=== PATIENT | female | born 1965 | race African-American/Black ===

== ENCOUNTER 2017-01-30 10:19 | Emergency (ER) | payer MEDICAID, MEDICARE ==
[~2017-01-30] VITALS: Ht 180.3 cm; Wt 75.0 kg
[~2017-01-30 10:19] MED LIST: HTN MEDICATION
[2017-01-30] MEDS ORDERED: HYDROCODONE/ACETAMINOPHEN 5/325MG TABLET PO STA (11:38)
[2017-01-30] MEDS ORDERED: ONDANSETRON 4MG ODT PO STA (11:38)
[2017-01-30 11:57] VITALS: BP 121/77
== END 2017-01-30 12:17 | disposition home or self-care (01) ==
LOC: ER 10:19
DX: C50.912 Malignant neoplasm of unspecified site of left female breast (principal); R11.2 Nausea with vomiting, unspecified; R10.32 Left lower quadrant pain; N93.9 Abnormal uterine and vaginal bleeding, unspecified; F17.200 Nicotine dependence, unspecified, uncomplicated; J45.909 Unspecified asthma, uncomplicated; I10 Essential (primary) hypertension; Z85.3 Personal history of malignant neoplasm of breast
CPT/HCPCS: 99283; Q0162; Z7610; 81003

== ENCOUNTER 2017-01-31 15:24 | Emergency (ER) | payer MEDICAID, MEDICARE ==
[~2017-01-31] VITALS: Ht 180.3 cm; Wt 77.0 kg
[2017-01-31] MEDS ORDERED: IBUPROFEN 600MG TABLET PO STA (15:54)
[2017-01-31 16:17] LABS: CHLORIDE 107 mEq/L (98-107)
[2017-01-31 16:18] LABS: INR 1.1; PROTHROMBIN TIME 11.1 sec (9.4-11.6)
[2017-01-31 16:21] LABS: HEMATOCRIT. 36.9 % (36.0-48.0); HEMOGLOBIN. 12.3 g/dL (12.0-16.0); MEAN CORPUSCULAR HEMOGLOBIN 29.5 pg (28.0-32.0); MEAN CORPUSCULAR VOLUME 88.5 fL (81.0-99.0); MEAN PLATELET VOLUME 9.6 fl (7.4-10.4); PLATELET 175 x1000/uL (130-400); RED BLOOD CELL COUNT 4.17 mill/uL (4.2-5.4); RED CELL DISTRIBUTION WIDTH 14.3 % (11.6-14.6)
[2017-01-31 16:22] LABS: CARBON DIOXIDE 30 mEq/L (21-32)
[2017-01-31 16:59] LABS: PLATELET ESTIMATE NORMAL
[2017-01-31 18:22] VITALS: BP 139/101
== END 2017-01-31 18:27 | disposition home or self-care (01) ==
LOC: ER 16:29
DX: C50.912 Malignant neoplasm of unspecified site of left female breast (principal); N92.0 Excessive and frequent menstruation with regular cycle; J44.9 Chronic obstructive pulmonary disease, unspecified; I10 Essential (primary) hypertension; Z72.0 Tobacco use
CPT/HCPCS: 36415; 71010; 80053; 85025; 85610; 93005; 99285; Z7610

== ENCOUNTER 2018-05-01 13:09 | Inpatient (IN) | payer MEDICAID, MEDICARE ==
[~2018-05-01] VITALS: Ht 180.3 cm; Wt 66.7 kg
[2018-05-01] MEDS ORDERED: ALBUTEROL (0.083%) 2.5MG/3ML NEB HHN STA (16:56)
[2018-05-01] MEDS ORDERED: IPRATROPIUM BROMIDE (0.02%) 0.5MG/2.5ML NEB HHN STA (16:56)
[2018-05-01] MEDS ORDERED: METHYLPREDNISOLONE SOD SUCC 125 MG/2 ML VIAL IV STA (16:56)
[2018-05-01 16:59] LABS: CHLORIDE 107 mEq/L (98-107)
[2018-05-01] MEDS ORDERED: MAGNESIUM 2 G PREMIX 50 ML IV ONE (17:00)
[2018-05-01 17:01] LABS: BASOPHILS % 0.5 % (0.0-2.0); EOSINOPHILS % 0.4 % (0.0-5.0); HEMATOCRIT. 42.6 % (36.0-48.0); HEMOGLOBIN. 14.2 g/dL (12.0-16.0); LYMPHOCYTES % 11.6 % (20.0-50.0); MEAN CORPUSCULAR HEMOGLOBIN 29.8 pg (28.0-32.0); MEAN CORPUSCULAR VOLUME 89.5 fL (81.0-99.0); MEAN PLATELET VOLUME 10.4 fl (7.4-10.4); MONOCYTES % 14.4 % (2.0-8.0); NEUTROPHILS % 73.1 % (40.0-76.0); PLATELET 134 x1000/uL (130-400); RED BLOOD CELL COUNT 4.76 mill/uL (4.2-5.4); RED CELL DISTRIBUTION WIDTH 16.8 % (11.6-14.6)
[2018-05-01] MEDS ORDERED: LEVOFLOXACIN 750MG PREMIX 150 ML IV NR (17:30)
[2018-05-01] MEDS ORDERED: ASPIRIN 81MG TABLET PO NR (17:30)
[2018-05-01 22:01] VITALS: BP 157/71
[2018-05-01] MEDS ORDERED: ACETAMINOPHEN 325MG TABLET PO PRN (22:15)
[2018-05-01] MEDS ORDERED: MAGNESIUM HYDROXIDE 400MG/5ML 30ML UDC PO PRN (22:15)
[2018-05-01] MEDS ORDERED: IPRATROPIUM/ALBUTEROL 0.5-3(2.5)MG/3ML NEB INH PRN (22:15)
[2018-05-01] MEDS ORDERED: ZOLPIDEM TARTRATE 5MG TABLET PO PRN (22:15)
[2018-05-01] MEDS ORDERED: ONDANSETRON HCL 4MG/2ML INJ IV PRN (22:15)
[2018-05-01] MEDS ORDERED: MAGNESIUM/ALUMINUM HYDROXIDE/SIMETHICONE 30ML UDC PO PRN (22:15)
[2018-05-01] MEDS ORDERED: GUAIFENESIN 200MG/10ML SUGAR FREE UDC PO PRN (22:15)
[2018-05-01] MEDS: ENOXAPARIN 40MG/0.4ML SYR SUBCUT SCH (23:05)
[2018-05-02 00:07] VITALS: BP 145/73
[2018-05-02] MEDS: TRAMADOL 50MG TABLET PO PRN ×3 (00:43→21:46)
[2018-05-02] MEDS: IPRATROPIUM/ALBUTEROL 0.5-3(2.5)MG/3ML NEB HHN SCH ×3 (01:27→20:54)
[2018-05-02 04:00] VITALS: BP 138/69
[2018-05-02] MEDS: METHYLPREDNISOLONE SOD SUCC 125 MG/2 ML VIAL IV SCH ×3 (05:43→21:43)
[2018-05-02] MEDS: SODIUM CHLORIDE 0.9% INJ 3ML FLUSH IVF SCH ×3 (05:43→21:44)
[2018-05-02] MEDS: BENZONATATE 100MG CAPSULE PO SCH ×3 (05:43→21:44)
[2018-05-02 08:00] VITALS: BP 165/77
[2018-05-02] MEDS: BUDESONIDE 0.5MG/2ML NEB HHN SCH ×2 (08:10→20:54)
[2018-05-02] MEDS: AMLODIPINE 5MG TABLET PO SCH ×2 (08:25→21:44)
[2018-05-02] MEDS: FAMOTIDINE 20MG TABLET PO SCH (08:26)
[2018-05-02] MEDS: ASPIRIN 81MG EC TABLET PO SCH (08:26)
[2018-05-02 12:00] VITALS: BP 165/84
[2018-05-02 16:00] VITALS: BP 148/77
[2018-05-02] MEDS ORDERED: LEVOFLOXACIN 250MG PREMIX 50 ML IV SCH (18:00)
[2018-05-02 18:46] LABS: *AMPHETAMINES SCREEN URINE NEGATIVE (NEGATIVE); *BARBITURATES SCREEN URINE NEGATIVE (NEGATIVE); *BENZODIAZEPINES SCREEN URINE NEGATIVE (NEGATIVE)
[2018-05-02 18:47] LABS: *COCAINE SCREEN URINE PRESUMTIVE POSITIVE (NEGATIVE); CANNABINOID URINE SCREEN NEGATIVE (NEGATIVE); METHADONE URINE SCREEN NEGATIVE (NEGATIVE); OPIATES URINE SCREEN NEGATIVE (NEGATIVE); PHENCYCLIDINE URINE SCREEN NEGATIVE (NEGATIVE)
[2018-05-02 20:00] VITALS: BP 171/75
[2018-05-02] MEDS: ENOXAPARIN 40MG/0.4ML SYR SUBCUT SCH (21:45)
[2018-05-03] VITALS (7 sets, daily range): BP systolic 145–177; BP diastolic 65–86
[2018-05-03] MEDS: IPRATROPIUM/ALBUTEROL 0.5-3(2.5)MG/3ML NEB HHN SCH ×3 (01:04→15:10)
[2018-05-03] MEDS: HYDROCODONE/ACETAMINOPHEN 5/325MG TABLET PO PRN ×4 (02:38→20:28)
[2018-05-03] MEDS: BENZONATATE 100MG CAPSULE PO SCH ×3 (05:48→20:28)
[2018-05-03] MEDS: METHYLPREDNISOLONE SOD SUCC 125 MG/2 ML VIAL IV SCH ×2 (05:48→14:51)
[2018-05-03] MEDS: SODIUM CHLORIDE 0.9% INJ 3ML FLUSH IVF SCH ×2 (05:48→14:52)
[2018-05-03] MEDS: BUDESONIDE 0.5MG/2ML NEB HHN SCH (08:16)
[2018-05-03] MEDS: FAMOTIDINE 20MG TABLET PO SCH (08:30)
[2018-05-03] MEDS: ASPIRIN 81MG EC TABLET PO SCH (08:30)
[2018-05-03] MEDS: AMLODIPINE 5MG TABLET PO SCH ×2 (08:32→20:28)
[2018-05-03 12:34] LABS: CHLORIDE 106 mEq/L (98-107)
[2018-05-03] MEDS ORDERED: LEVOFLOXACIN 500MG PREMIX 100 ML IV SCH ×2 (18:00)
[2018-05-03] MEDS ORDERED: FAMOTIDINE 20MG TABLET PO SCH (21:00)
== END 2018-05-03 21:31 | disposition home or self-care (01) | DRG 140 ==
LOC: ER 13:09 → EDBEDREQ 17:38 → 5WST 17:59 → EDBEDREQ 18:44 → ENRESERV 18:52
PROVIDERS: ADMIT Internal Medicine; ATTEND Internal Medicine
DX: J44.0 Chronic obstructive pulmonary disease with (acute) lower respiratory infection (principal); F10.10 Alcohol abuse, uncomplicated; F17.210 Nicotine dependence, cigarettes, uncomplicated; I10 Essential (primary) hypertension; F19.10 Other psychoactive substance abuse, uncomplicated; J20.9 Acute bronchitis, unspecified; J44.1 Chronic obstructive pulmonary disease with (acute) exacerbation; Z59.0 Homelessness; I25.2 Old myocardial infarction; Z82.49 Family history of ischemic heart disease and other diseases of the circulatory system; Z85.3 Personal history of malignant neoplasm of breast; Z90.12 Acquired absence of left breast and nipple; Z71.6 Tobacco abuse counseling; I51.7 Cardiomegaly
CPT/HCPCS: 36415; 71045; 78582; 80061; 80305; 83880; 84484; 87804; 93005; 93306; 94640; 96365; 96366; 96368; 96375; 99285; A9558; J1650; J1956; J2930; J3475; J7040; J7611; J7620; J7626

== ENCOUNTER 2019-06-29 09:15 | Emergency (ER) | payer MEDICAID, MEDICARE ==
[~2019-06-29] VITALS: Ht 167.6 cm; Wt 65.0 kg
[2019-06-29] MEDS ORDERED: CLONIDINE 0.2MG TABLET PO ONE (11:15)
[2019-06-29] MEDS ORDERED: MORPHINE SULFATE 4 MG/ML CPJ (NOT FOR IM USE) IV ONE ×3 (12:15→18:30)
[2019-06-29 12:18] LABS: HEMATOCRIT. 46.7 % (36.0-48.0); HEMOGLOBIN. 14.8 g/dL (12.0-16.0); MEAN CORPUSCULAR HEMOGLOBIN 29.8 pg (28.0-32.0); MEAN CORPUSCULAR VOLUME 94.1 fL (81.0-99.0); MEAN PLATELET VOLUME 10.1 fl (7.4-10.4); PLATELET 107 x1000/uL (130-400); RED BLOOD CELL COUNT 4.96 mill/uL (4.2-5.4); RED CELL DISTRIBUTION WIDTH 15.7 % (11.6-14.6)
[2019-06-29 12:22] LABS: CHLORIDE 109 mEq/L (98-107)
[2019-06-29] MEDS ORDERED: FUROSEMIDE 40MG/4ML VIAL IVP ONE (12:30)
[2019-06-29 12:51] LABS: PLATELET ESTIMATE SLIGHTLY DECREASED
[2019-06-29] MEDS ORDERED: ONDANSETRON HCL 4MG/2ML INJ IV ONE (14:45)
[2019-06-29] MEDS ORDERED: ENOXAPARIN 60MG/0.6ML SYR SUBCUT ONE (15:00)
[2019-06-29] MEDS ORDERED: ASPIRIN 325MG EC TABLET PO ONE (15:00)
[2019-06-29 21:30] VITALS: BP 125/75
== END 2019-06-29 21:42 | disposition short-term general hospital (02) ==
LOC: ER 09:15 → CANBEDREQ 19:53 → ER 21:42
DX: I16.0 Hypertensive urgency (principal); I11.0 Hypertensive heart disease with heart failure; I50.9 Heart failure, unspecified; C50.919 Malignant neoplasm of unspecified site of unspecified female breast; J44.9 Chronic obstructive pulmonary disease, unspecified; E78.00 Pure hypercholesterolemia, unspecified; F10.20 Alcohol dependence, uncomplicated; D64.9 Anemia, unspecified; F17.200 Nicotine dependence, unspecified, uncomplicated; R79.89 Other specified abnormal findings of blood chemistry; Z90.10 Acquired absence of unspecified breast and nipple; Z98.890 Other specified postprocedural states; Y90.9 Presence of alcohol in blood, level not specified
CPT/HCPCS: 36415; 71045; 80053; 83880; 84484; 85025; 93005; 96372; 96374; 96375; 96376; 99291; J1650; J1940; J2270; J2405; Z7610

== ENCOUNTER 2019-08-31 10:08 | Inpatient (IN) | payer MEDICAID ==
[~2019-08-31] VITALS: Ht 167.6 cm; Wt 67.1 kg
[~2019-08-31 10:08] MED LIST changes: +ALBU90AE INH; +AMLO5TAB4 PO; +ASPI-1497 MT; +BLOO1KIT74 TP; +FLUT1AER INH; +FURO-151 MT; -HTN MEDICATION; +LOSA50TA3 MT; +P20 PO
[2019-08-31] MEDS ORDERED: KETOROLAC 30MG/ML VIAL IV STA (12:07)
[2019-08-31] MEDS ORDERED: ONDANSETRON HCL 4MG/2ML INJ IV STA (12:07)
[2019-08-31] MEDS ORDERED: SODIUM CHLORIDE 0.9% 1,000 ML IV ONE (12:07)
[2019-08-31] MEDS ORDERED: AMLODIPINE 5MG TABLET PO ONE (12:15)
[2019-08-31] MEDS ORDERED: ALBUTEROL 6.7GM HFA INHALER ORI PRN (12:15)
[2019-08-31] MEDS ORDERED: FAMOTIDINE 20MG/2ML VIAL IV ONE (12:15)
[2019-08-31 13:42] LABS: BASOPHILS % 0.8 % (0.0-2.0); EOSINOPHILS % 2.9 % (0.0-5.0); HEMATOCRIT. 53.6 % (36.0-48.0); HEMOGLOBIN. 17.8 g/dL (12.0-16.0); LYMPHOCYTES % 21.3 % (20.0-50.0); MEAN CORPUSCULAR HEMOGLOBIN 29.3 pg (28.0-32.0); MEAN PLATELET VOLUME 9.5 fl (7.4-10.4); MONOCYTES % 5.7 % (2.0-8.0); NEUTROPHILS % 69.3 % (40.0-76.0); PLATELET 210 x1000/uL (130-400); RED CELL DISTRIBUTION WIDTH 15.4 % (11.6-14.6)
[2019-08-31 13:43] LABS: CLARITY URINE CLEAR (CLEAR); COLOR URINE YELLOW (YELLOW); KETONES URINE NEGATIVE (NEGATIVE); LEUKOCYTE ESTERASE URINE NEGATIVE (NEGATIVE); NITRITE URINE NEGATIVE (NEGATIVE); OCCULT BLOOD URINE NEGATIVE (NEGATIVE); PROTEIN URINE 1+ (NEGATIVE); SPECIFIC GRAVITY URINE 1.011 (1.005-1.030); UROBILINOGEN URINE 0.2 E.U./dL (0.2-1.0)
[2019-08-31 15:45] LABS: BASOPHILS % 0.6 % (0.0-2.0); CHLORIDE 104 mEq/L (98-107); EOSINOPHILS % 1.4 % (0.0-5.0); HEMATOCRIT. 45.8 % (36.0-48.0); HEMOGLOBIN. 14.9 g/dL (12.0-16.0); LYMPHOCYTES % 17.5 % (20.0-50.0); MEAN CORPUSCULAR HEMOGLOBIN 28.9 pg (28.0-32.0); MEAN CORPUSCULAR VOLUME 88.9 fL (81.0-99.0); MEAN PLATELET VOLUME 9.3 fl (7.4-10.4); MONOCYTES % 6.6 % (2.0-8.0); NEUTROPHILS % 73.9 % (40.0-76.0); PLATELET 181 x1000/uL (130-400); RED BLOOD CELL COUNT 5.16 mill/uL (4.2-5.4); RED CELL DISTRIBUTION WIDTH 15.4 % (11.6-14.6)
[2019-08-31] MEDS ORDERED: ASPIRIN 81MG TABLET PO ONE (16:45)
[2019-08-31] MEDS ORDERED: LEVOFLOXACIN 750MG PREMIX 150 ML IV ONE (17:45)
[2019-08-31] MEDS ORDERED: SODIUM CHLORIDE 0.9% 1000ML BAG (SEPSIS BOLUS) IV ONE (17:45)
[2019-08-31 20:00] VITALS: BP 148/99
[2019-08-31 22:00] VITALS: BP 148/99
[2019-08-31] MEDS ORDERED: CLONIDINE 0.1MG TABLET PO PRN (23:30)
[2019-08-31] MEDS ORDERED: ONDANSETRON HCL 4MG/2ML INJ IV PRN (23:30)
[2019-08-31] MEDS ORDERED: ACETAMINOPHEN 325MG TABLET PO PRN (23:30)
[2019-08-31] MEDS ORDERED: AZITHROMYCIN 500 MG in DEXT 5% WATER 250 ML IV SCH (23:30)
[2019-09-01] VITALS: BP 137/76
[2019-09-01] MEDS ORDERED: AZITHROMYCIN 500 MG TABLET PO NR (01:00)
[2019-09-01 04:00] VITALS: BP 155/84
[2019-09-01] MEDS: HYDROCODONE/ACETAMINOPHEN 5/325MG TABLET PO PRN ×3 (04:31→14:29)
[2019-09-01 07:43] LABS: *BENZODIAZEPINES SCREEN URINE NEGATIVE (NEGATIVE); *COCAINE SCREEN URINE PRESUMTIVE POSITIVE (NEGATIVE)
[2019-09-01 07:44] LABS: METHADONE URINE SCREEN NEGATIVE (NEGATIVE); OPIATES URINE SCREEN NEGATIVE (NEGATIVE); PHENCYCLIDINE URINE SCREEN NEGATIVE (NEGATIVE)
[2019-09-01 07:45] LABS: *AMPHETAMINES SCREEN URINE NEGATIVE (NEGATIVE); *BARBITURATES SCREEN URINE NEGATIVE (NEGATIVE); CANNABINOID URINE SCREEN NEGATIVE (NEGATIVE)
[2019-09-01 08:00] VITALS: BP 135/88
[2019-09-01] MEDS ORDERED: VANCOMYCIN 1250MG in DEXTROSE 5% WATER 250ML IV SCH (08:00)
[2019-09-01] MEDS: FUROSEMIDE 40MG/4ML VIAL IV SCH (08:19)
[2019-09-01] MEDS: LOSARTAN POTASSIUM 50 MG TABLET PO SCH (08:20)
[2019-09-01] MEDS: AMLODIPINE 5MG TABLET PO SCH ×2 (08:20→16:38)
[2019-09-01] MEDS: ASPIRIN 81MG EC TABLET PO SCH (08:20)
[2019-09-01] MEDS: ENOXAPARIN 40MG/0.4ML SYR SUBCUT SCH (08:21)
[2019-09-01 09:00] LABS: BG BASE EXCESS 1.6 mmol/L (-2.0-2.0); BG CARBOXYHEMOGLOBIN 0.9 % (0.5-1.5); BG FRACTION INSPIRED OXYGEN 21; BG HCO3 ACT 26.4 mmol/L (22.0-26.0); BG METHEMOGLOBIN 0.3 % (0.0-1.5); BG OXYGEN SATURATION 93.9 % (92.0-98.5); BG OXYHEMOGLOBIN 92.8 % (94.0-97.0); BG PCO2 42.2 mmHg (35.0-45.0); BG PH 7.414 (7.350-7.450); BG PO2 67.4 mmHg (75.0-100.0); BG SAMPLE SITE RIGHT RADIAL; BG TOTAL HEMOGLOBIN 13.6 g/dL (12.0-18.0); BG VENT MODE ROOM AIR
[2019-09-01] MEDS ORDERED: ASPIRIN 81MG EC TABLET PO SCH (09:00)
[2019-09-01 09:32] LABS: CHLORIDE 107 mEq/L (98-107)
[2019-09-01 09:40] LABS: HDL CHOLESTEROL 54 mg/dL (40-59); LDL CHOLESTEROL 47 mg/dL (5-100)
[2019-09-01 09:42] LABS: BASOPHILS % 0.5 % (0.0-2.0); EOSINOPHILS % 4.3 % (0.0-5.0); HEMATOCRIT. 43.5 % (36.0-48.0); HEMOGLOBIN. 14.2 g/dL (12.0-16.0); LYMPHOCYTES % 27.2 % (20.0-50.0); MEAN CORPUSCULAR HEMOGLOBIN 28.9 pg (28.0-32.0); MEAN CORPUSCULAR VOLUME 88.5 fL (81.0-99.0); MONOCYTES % 8.1 % (2.0-8.0); NEUTROPHILS % 59.9 % (40.0-76.0); PLATELET 160 x1000/uL (130-400); RED BLOOD CELL COUNT 4.91 mill/uL (4.2-5.4); RED CELL DISTRIBUTION WIDTH 15.2 % (11.6-14.6)
[2019-09-01 12:00] VITALS: BP 132/84
[2019-09-01] MEDS ORDERED: HYDRALAZINE 20MG/ML VIAL IV PRN (15:45)
[2019-09-01 16:00] VITALS: BP 137/94
[2019-09-01] MEDS: LORAZEPAM 2MG/ML CPJ IV PRN (16:38)
[2019-09-01 20:00] VITALS: BP 109/63
[2019-09-01] MEDS ORDERED: VANCOMYCIN 750 MG in DEXT 5% WATER 250 ML IV SCH (20:00)
[2019-09-01] MEDS ORDERED: VANCOMYCIN 750 MG PREMIX 150 ML IV SCH (20:00)
[2019-09-02] VITALS (7 sets, daily range): BP systolic 116–132; BP diastolic 67–86
[2019-09-02] MEDS: VANCOMYCIN 1,000 MG in DEXT 5% WATER 250 ML IV SCH ×2 (00:36→18:02)
[2019-09-02] MEDS: LORAZEPAM 2MG/ML CPJ IV PRN ×3 (01:05→16:34)
[2019-09-02] MEDS: MORPHINE SULFATE 2 MG/ML CPJ (NOT FOR IM USE) IV PRN ×4 (01:06→23:34)
[2019-09-02] MEDS: HYDROCODONE/ACETAMINOPHEN 5/325MG TABLET PO PRN (04:32)
[2019-09-02 06:22] LABS: CHLORIDE 105 mEq/L (98-107)
[2019-09-02 06:28] LABS: BASOPHILS % 0.6 % (0.0-2.0); EOSINOPHILS % 5.5 % (0.0-5.0); HEMATOCRIT. 43.7 % (36.0-48.0); HEMOGLOBIN. 14.3 g/dL (12.0-16.0); LYMPHOCYTES % 38.2 % (20.0-50.0); MEAN CORPUSCULAR HEMOGLOBIN 28.8 pg (28.0-32.0); MEAN CORPUSCULAR VOLUME 88.3 fL (81.0-99.0); MONOCYTES % 12.1 % (2.0-8.0); NEUTROPHILS % 43.6 % (40.0-76.0); PLATELET 183 x1000/uL (130-400); RED BLOOD CELL COUNT 4.95 mill/uL (4.2-5.4); RED CELL DISTRIBUTION WIDTH 15.2 % (11.6-14.6)
[2019-09-02] MEDS: FUROSEMIDE 40MG/4ML VIAL IV SCH (08:53)
[2019-09-02] MEDS: ENOXAPARIN 40MG/0.4ML SYR SUBCUT SCH (08:54)
[2019-09-02] MEDS: LOSARTAN POTASSIUM 50 MG TABLET PO SCH (08:54)
[2019-09-02] MEDS: AMLODIPINE 5MG TABLET PO SCH ×2 (08:54→18:01)
[2019-09-02] MEDS: AZITHROMYCIN 250 MG TABLET PO SCH (08:54)
[2019-09-02] MEDS: CLOPIDOGREL 75MG TABLET PO SCH (08:54)
[2019-09-02] MEDS: ASPIRIN 81MG EC TABLET PO SCH (08:54)
[2019-09-03] MEDS: LORAZEPAM 2MG/ML CPJ IV PRN ×3 (00:31→19:54)
[2019-09-03 04:00] VITALS: BP 101/70
[2019-09-03] MEDS: CLOPIDOGREL 75MG TABLET PO SCH (07:55)
[2019-09-03] MEDS: AMLODIPINE 5MG TABLET PO SCH ×2 (07:55→17:00)
[2019-09-03] MEDS: ASPIRIN 81MG EC TABLET PO SCH (07:55)
[2019-09-03] MEDS: LOSARTAN POTASSIUM 50 MG TABLET PO SCH (07:55)
[2019-09-03] MEDS: ENOXAPARIN 40MG/0.4ML SYR SUBCUT SCH (07:56)
[2019-09-03 08:00] VITALS: BP 123/65
[2019-09-03] MEDS: AZITHROMYCIN 250 MG TABLET PO SCH (08:06)
[2019-09-03] MEDS: MORPHINE SULFATE 2 MG/ML CPJ (NOT FOR IM USE) IV PRN ×2 (08:07→19:54)
[2019-09-03] MEDS: FUROSEMIDE 40MG/4ML VIAL IV SCH (09:00)
[2019-09-03 12:00] VITALS: BP 122/74
[2019-09-03] MEDS: HYDROCODONE/ACETAMINOPHEN 5/325MG TABLET PO PRN (12:07)
[2019-09-03] MEDS: VANCOMYCIN 1 G PREMIX 200 ML IV SCH ×2 (12:08→19:56)
[2019-09-03 16:00] VITALS: BP 111/65
[2019-09-03 20:00] VITALS: BP 128/84
[2019-09-03 22:00] VITALS: BP 128/84
[2019-09-04] VITALS: BP 123/59
[2019-09-04] MEDS: MORPHINE SULFATE 2 MG/ML CPJ (NOT FOR IM USE) IV PRN (00:04)
[2019-09-04] MEDS: HYDROCODONE/ACETAMINOPHEN 5/325MG TABLET PO PRN ×3 (02:17→16:30)
[2019-09-04 04:00] VITALS: BP 114/73
[2019-09-04 07:45] VITALS: BP 117/80
[2019-09-04] MEDS: FUROSEMIDE 40MG/4ML VIAL IV SCH (08:56)
[2019-09-04] MEDS: AZITHROMYCIN 250 MG TABLET PO SCH (08:56)
[2019-09-04] MEDS: LOSARTAN POTASSIUM 50 MG TABLET PO SCH (08:56)
[2019-09-04] MEDS: AMLODIPINE 5MG TABLET PO SCH ×2 (08:57→17:00)
[2019-09-04] MEDS: ASPIRIN 81MG EC TABLET PO SCH (08:57)
[2019-09-04] MEDS: CLOPIDOGREL 75MG TABLET PO SCH (08:57)
[2019-09-04] MEDS: ENOXAPARIN 40MG/0.4ML SYR SUBCUT SCH (08:58)
[2019-09-04] MEDS: VANCOMYCIN 1 G PREMIX 200 ML IV SCH (08:58)
[2019-09-04] MEDS: LORAZEPAM 2MG/ML CPJ IV PRN (10:30)
[2019-09-04 11:46] VITALS: BP 103/69
[2019-09-04 15:41] VITALS: BP 97/68
[2019-09-04 20:30] VITALS: BP 114/64
[2019-09-05 00:20] VITALS: BP 112/61
[2019-09-05] MEDS: MORPHINE SULFATE 2 MG/ML CPJ (NOT FOR IM USE) IV PRN ×3 (01:27→20:30)
[2019-09-05] MEDS: VANCOMYCIN 1 G PREMIX 200 ML IV SCH ×3 (01:29→23:17)
[2019-09-05 04:00] VITALS: BP 112/61
[2019-09-05] MEDS: HYDROCODONE/ACETAMINOPHEN 5/325MG TABLET PO PRN ×4 (05:18→23:32)
[2019-09-05 08:00] VITALS: BP 111/70
[2019-09-05] MEDS: FUROSEMIDE 40MG/4ML VIAL IV SCH (08:12)
[2019-09-05] MEDS: ASPIRIN 81MG EC TABLET PO SCH (08:12)
[2019-09-05] MEDS: LOSARTAN POTASSIUM 50 MG TABLET PO SCH (08:13)
[2019-09-05] MEDS: ENOXAPARIN 40MG/0.4ML SYR SUBCUT SCH ×2 (08:13→08:34)
[2019-09-05] MEDS: CLOPIDOGREL 75MG TABLET PO SCH (08:13)
[2019-09-05] MEDS: AZITHROMYCIN 250 MG TABLET PO SCH (08:13)
[2019-09-05] MEDS: AMLODIPINE 5MG TABLET PO SCH ×2 (08:14→16:33)
[2019-09-05 12:00] VITALS: BP 111/67
[2019-09-05 16:30] VITALS: BP 138/86
[2019-09-05] MEDS: LORAZEPAM 2MG/ML CPJ IV PRN (17:48)
[2019-09-05 20:00] VITALS: BP 122/89
[2019-09-06] VITALS: BP 113/72
[2019-09-06] MEDS: LORAZEPAM 2MG/ML CPJ IV PRN ×2 (03:09→12:27)
[2019-09-06 04:00] VITALS: BP 122/71
[2019-09-06] MEDS: HYDROCODONE/ACETAMINOPHEN 5/325MG TABLET PO PRN ×3 (05:49→21:33)
[2019-09-06 08:00] VITALS: BP 102/70
[2019-09-06] MEDS: LOSARTAN POTASSIUM 50 MG TABLET PO SCH (08:52)
[2019-09-06] MEDS: ASPIRIN 81MG EC TABLET PO SCH (08:52)
[2019-09-06] MEDS: CLOPIDOGREL 75MG TABLET PO SCH (08:52)
[2019-09-06] MEDS: AMLODIPINE 5MG TABLET PO SCH ×2 (08:53→17:08)
[2019-09-06] MEDS: ENOXAPARIN 40MG/0.4ML SYR SUBCUT SCH ×2 (08:54→09:00)
[2019-09-06] MEDS: FUROSEMIDE 40MG/4ML VIAL IV SCH (09:04)
[2019-09-06] MEDS: VANCOMYCIN 1 G PREMIX 200 ML IV SCH (10:07)
[2019-09-06] MEDS: MORPHINE SULFATE 2 MG/ML CPJ (NOT FOR IM USE) IV PRN (10:08)
[2019-09-06 12:00] VITALS: BP 106/68
[2019-09-06] MEDS ORDERED: LURA20TA PO (12:18)
[2019-09-06] MEDS ORDERED: QUET100T PO (12:18)
[2019-09-06 16:00] VITALS: BP 104/64
[2019-09-06 20:00] VITALS: BP 134/82
[2019-09-06] MEDS ORDERED: LORAZEPAM 1MG TABLET PO PRN (20:30)
[2019-09-06] MEDS: QUETIAPINE FUMARATE 50MG TABLET PO SCH (20:57)
[2019-09-07 04:00] VITALS: BP 114/50
[2019-09-07 04:07] LABS: COCAINE CONFIRMATION URINE Positive (.)
[2019-09-07 08:00] VITALS: BP 120/78
[2019-09-07] MEDS: FUROSEMIDE 40MG/4ML VIAL IV SCH (09:11)
[2019-09-07] MEDS: LOSARTAN POTASSIUM 50 MG TABLET PO SCH (09:21)
[2019-09-07] MEDS: ASPIRIN 81MG EC TABLET PO SCH (09:21)
[2019-09-07] MEDS: AMLODIPINE 5MG TABLET PO SCH (09:22)
[2019-09-07] MEDS: QUETIAPINE FUMARATE 50MG TABLET PO SCH (09:22)
[2019-09-07] MEDS: CLOPIDOGREL 75MG TABLET PO SCH (09:22)
[2019-09-07] MEDS: HYDROCODONE/ACETAMINOPHEN 5/325MG TABLET PO PRN ×3 (09:23→18:19)
[2019-09-07 12:00] VITALS: BP 95/64
[2019-09-07 16:00] VITALS: BP 107/63
[2019-09-07] MEDS ORDERED: MORPHINE SULFATE 2 MG/ML CPJ (NOT FOR IM USE) IV PRN (18:15)
[2019-09-07 19:38] VITALS: BP 133/87
[2019-09-07 20:00] VITALS: BP 133/87
== END 2019-09-07 20:50 | disposition hospice, inpatient (51) | DRG 816 ==
LOC: ER 10:08 → 7EST 15:09 → ENRESERV 16:26 → 6WST 09-01 23:14 → 6EST 09-05 15:30
PROVIDERS: ADMIT Internal Medicine; ATTEND Internal Medicine
DX: T40.5X1A Poisoning by cocaine, accidental (unintentional), initial encounter (principal); I21.4 Non-ST elevation (NSTEMI) myocardial infarction; I50.43 Acute on chronic combined systolic (congestive) and diastolic (congestive) heart failure; N17.9 Acute kidney failure, unspecified; E87.2 Acidosis; E86.0 Dehydration; I08.1 Rheumatic disorders of both mitral and tricuspid valves; J44.1 Chronic obstructive pulmonary disease with (acute) exacerbation; I27.20 Pulmonary hypertension, unspecified; I31.3 Pericardial effusion (noninflammatory); I25.10 Atherosclerotic heart disease of native coronary artery without angina pectoris; I11.0 Hypertensive heart disease with heart failure; D72.819 Decreased white blood cell count, unspecified; Z20.828 Contact with and (suspected) exposure to other viral communicable diseases; J68.0 Bronchitis and pneumonitis due to chemicals, gases, fumes and vapors; R78.81 Bacteremia; B96.89 Other specified bacterial agents as the cause of diseases classified elsewhere; I42.9 Cardiomyopathy, unspecified; E78.5 Hyperlipidemia, unspecified; F17.210 Nicotine dependence, cigarettes, uncomplicated; Z59.0 Homelessness; Z98.61 Coronary angioplasty status; Z91.19 Patient's noncompliance with other medical treatment and regimen; Z90.12 Acquired absence of left breast and nipple; Z85.3 Personal history of malignant neoplasm of breast; Y92.89 Other specified places as the place of occurrence of the external cause; Z91.018 Allergy to other foods; Z92.21 Personal history of antineoplastic chemotherapy
CPT/HCPCS: 36415; 36600; 71045; 74018; 76700; 80048; 80053; 80061; 80202; 80305; 80353; 81003; 82375; 82805; 83036; 83605; 83880; 84481; 84484; 85025; 87420; 87635; 87804; 93005; 93306; 96374; 99285; J1650; J1885; J1940; J2060; J2270; J2405; J3370; J3490; J7030; J7060

== ENCOUNTER 2019-11-26 07:10 | Inpatient (IN) | payer MEDICAID, MEDICARE ==
[~2019-11-26] VITALS: Ht 180.3 cm; Wt 65.3 kg
[~2019-11-26 07:10] MED LIST changes: +LURA20TA PO; +QUET100T PO
[2019-11-26 08:06] LABS: EOSINOPHILS % 1.5 % (0.0-5.0); HEMATOCRIT. 44.5 % (36.0-48.0); LYMPHOCYTES % 20.5 % (20.0-50.0); MEAN CORPUSCULAR HEMOGLOBIN 31.1 pg (28.0-32.0); MEAN CORPUSCULAR VOLUME 92.2 fL (81.0-99.0); MEAN PLATELET VOLUME 9.5 fl (7.4-10.4); MONOCYTES % 12.3 % (2.0-8.0); NEUTROPHILS % 64.7 % (40.0-76.0); PLATELET 165 x1000/uL (130-400); RED BLOOD CELL COUNT 4.82 mill/uL (4.2-5.4); RED CELL DISTRIBUTION WIDTH 15.7 % (11.6-14.6)
[2019-11-26 08:13] LABS: CHLORIDE 109 mEq/L (98-107)
[2019-11-26] MEDS ORDERED: AZITHROMYCIN 500 MG TABLET PO ONE (08:30)
[2019-11-26] MEDS ORDERED: PREDNISOLONE 15 MG/5 ML ORAL SYRINGE PO ONE (08:30)
[2019-11-26] MEDS ORDERED: IPRATROPIUM/ALBUTEROL 0.5-3(2.5)MG/3ML NEB HHN ONE (08:30)
[2019-11-26] MEDS ORDERED: OXYC-105 MT (13:44)
[2019-11-26] MEDS ORDERED: MAGNESIUM/ALUMINUM HYDROXIDE/SIMETHICONE 30ML UDC PO PRN (13:45)
[2019-11-26] MEDS ORDERED: ALBUTEROL 6.7GM HFA INHALER ORI PRN (13:45)
[2019-11-26] MEDS ORDERED: ONDANSETRON HCL 4MG/2ML INJ IV PRN (13:45)
[2019-11-26] MEDS ORDERED: GUAIFENESIN 200MG/10ML SUGAR FREE UDC PO PRN (13:45)
[2019-11-26] MEDS ORDERED: CLONIDINE 0.1MG TABLET PO PRN (13:45)
[2019-11-26] MEDS ORDERED: ACETAMINOPHEN 325MG TABLET PO PRN ×2 (13:45)
[2019-11-26 13:48] VITALS: BP 131/78
[2019-11-26] MEDS: SODIUM CHLORIDE 0.9% INJ 3ML FLUSH IVF SCH ×2 (14:00→18:17)
[2019-11-26] MEDS: ENOXAPARIN 40MG/0.4ML SYR SUBCUT SCH ×2 (14:00→18:16)
[2019-11-26] MEDS: CEFTRIAXONE 1 G PREMIX 50 ML IV SCH ×2 (15:00→18:16)
[2019-11-26 16:29] LABS: *AMPHETAMINES SCREEN URINE NEGATIVE (NEGATIVE)
[2019-11-26 16:30] LABS: *BARBITURATES SCREEN URINE NEGATIVE (NEGATIVE); *BENZODIAZEPINES SCREEN URINE NEGATIVE (NEGATIVE); *COCAINE SCREEN URINE PRESUMTIVE POSITIVE (NEGATIVE); METHADONE URINE SCREEN NEGATIVE (NEGATIVE); OPIATES URINE SCREEN NEGATIVE (NEGATIVE); PHENCYCLIDINE URINE SCREEN NEGATIVE (NEGATIVE)
[2019-11-26 16:31] LABS: CANNABINOID URINE SCREEN NEGATIVE (NEGATIVE)
[2019-11-26] MEDS: HYDROCODONE/ACETAMINOPHEN 10/325MG TABLET PO PRN (18:06)
[2019-11-26 20:00] VITALS: BP 140/60
[2019-11-26] MEDS: GUAIFENESIN 600MG ER TABLET PO SCH (21:22)
[2019-11-27] VITALS (9 sets, daily range): BP systolic 122–203; BP diastolic 59–105
[2019-11-27] MEDS: HYDROCODONE/ACETAMINOPHEN 10/325MG TABLET PO PRN ×2 (00:22→08:59)
[2019-11-27] MEDS: ZOLPIDEM TARTRATE 5MG TABLET PO PRN ×2 (00:23→22:36)
[2019-11-27] MEDS: SODIUM CHLORIDE 0.9% INJ 3ML FLUSH IVF SCH ×3 (07:04→22:36)
[2019-11-27] MEDS ORDERED: IPRATROPIUM/ALBUTEROL 0.5-3(2.5)MG/3ML NEB ONE (08:48)
[2019-11-27] MEDS: GUAIFENESIN 600MG ER TABLET PO SCH ×2 (08:57→22:36)
[2019-11-27] MEDS: AZITHROMYCIN 500 MG TABLET PO SCH (08:57)
[2019-11-27 08:59] LABS: BG BASE EXCESS -9.4 mmol/L (-2.0-2.0); BG DEOXYHEMOGLOBIN 21.7 % (0.0-5.0); BG FRACTION INSPIRED OXYGEN 100; BG HCO3 ACT 20.7 mmol/L (22.0-26.0); BG METHEMOGLOBIN 0.2 % (0.0-1.5); BG OXYHEMOGLOBIN 77.1 % (94.0-97.0); BG PCO2 61.2 mmHg (35.0-45.0); BG PH 7.147 (7.350-7.450); BG PO2 52.6 mmHg (75.0-100.0); BG SAMPLE SITE RIGHT RADIAL; BG TOTAL HEMOGLOBIN 18.1 g/dL (12.0-18.0); BG VENT MODE MASK - NRB
[2019-11-27] MEDS ORDERED: QUETIAPINE FUMARATE 50MG TABLET PO SCH (09:45)
[2019-11-27] MEDS: METHYLPREDNISOLONE SOD SUCC 125 MG/2 ML VIAL IV SCH ×3 (10:10→22:36)
[2019-11-27] MEDS: LOSARTAN POTASSIUM 50 MG TABLET PO SCH (10:11)
[2019-11-27] MEDS: CEFTRIAXONE 1 G PREMIX 50 ML IV SCH (14:11)
[2019-11-27] MEDS: IPRATROPIUM/ALBUTEROL 0.5-3(2.5)MG/3ML NEB HHN SCH (16:09)
[2019-11-27] MEDS: ASPIRIN 325MG EC TABLET PO SCH (17:43)
[2019-11-27] MEDS: FUROSEMIDE 40MG/4ML VIAL IVP SCH ×2 (17:43→22:36)
[2019-11-27] MEDS: QUETIAPINE FUMARATE 50MG TABLET PO SCH (22:36)
[2019-11-27] MEDS: ATORVASTATIN CALCIUM 40MG TABLET PO SCH (22:36)
[2019-11-28] VITALS (12 sets, daily range): BP systolic 119–162; BP diastolic 62–96
[2019-11-28] MEDS: IPRATROPIUM/ALBUTEROL 0.5-3(2.5)MG/3ML NEB HHN SCH ×6 (00:49→21:55)
[2019-11-28] MEDS: METHYLPREDNISOLONE SOD SUCC 125 MG/2 ML VIAL IV SCH ×4 (05:03→21:00)
[2019-11-28] MEDS: SODIUM CHLORIDE 0.9% INJ 3ML FLUSH IVF SCH ×3 (05:04→21:24)
[2019-11-28] MEDS: FUROSEMIDE 40MG/4ML VIAL IVP SCH ×2 (09:30→20:56)
[2019-11-28] MEDS: ASPIRIN 325MG EC TABLET PO SCH (09:30)
[2019-11-28] MEDS: GUAIFENESIN 600MG ER TABLET PO SCH ×2 (09:30→20:56)
[2019-11-28] MEDS: QUETIAPINE FUMARATE 50MG TABLET PO SCH ×2 (09:30→20:56)
[2019-11-28] MEDS: AZITHROMYCIN 500 MG TABLET PO SCH (09:30)
[2019-11-28] MEDS: LOSARTAN POTASSIUM 50 MG TABLET PO SCH (09:30)
[2019-11-28] MEDS: ENOXAPARIN 40MG/0.4ML SYR SUBCUT SCH (09:31)
[2019-11-28] MEDS: HYDROCODONE/ACETAMINOPHEN 10/325MG TABLET PO PRN ×2 (09:41→21:26)
[2019-11-28] MEDS: CEFTRIAXONE 1 G PREMIX 50 ML IV SCH (13:40)
[2019-11-28] MEDS: DIPHENHYDRAMINE 50MG/ML VIAL IV PRN (20:56)
[2019-11-28] MEDS: ATORVASTATIN CALCIUM 40MG TABLET PO SCH (20:56)
[2019-11-29] VITALS (10 sets, daily range): BP systolic 122–152; BP diastolic 64–90
[2019-11-29] MEDS: IPRATROPIUM/ALBUTEROL 0.5-3(2.5)MG/3ML NEB HHN SCH ×6 (00:52→20:10)
[2019-11-29] MEDS: METHYLPREDNISOLONE SOD SUCC 125 MG/2 ML VIAL IV SCH ×3 (04:12→17:24)
[2019-11-29] MEDS: SODIUM CHLORIDE 0.9% INJ 3ML FLUSH IVF SCH ×3 (06:33→21:52)
[2019-11-29 06:39] LABS: HEMATOCRIT. 44.3 % (36.0-48.0); HEMOGLOBIN. 14.8 g/dL (12.0-16.0); MEAN CORPUSCULAR HEMOGLOBIN 30.6 pg (28.0-32.0); MEAN CORPUSCULAR VOLUME 91.5 fL (81.0-99.0); PLATELET 163 x1000/uL (130-400); RED BLOOD CELL COUNT 4.84 mill/uL (4.2-5.4); RED CELL DISTRIBUTION WIDTH 16.1 % (11.6-14.6)
[2019-11-29 07:07] LABS: CHLORIDE 99 mEq/L (98-107)
[2019-11-29] MEDS: HYDROCODONE/ACETAMINOPHEN 10/325MG TABLET PO PRN ×3 (08:52→17:23)
[2019-11-29] MEDS: AZITHROMYCIN 500 MG TABLET PO SCH (08:53)
[2019-11-29] MEDS: FUROSEMIDE 40MG/4ML VIAL IVP SCH ×2 (08:53→20:56)
[2019-11-29] MEDS: QUETIAPINE FUMARATE 50MG TABLET PO SCH ×2 (08:53→20:56)
[2019-11-29] MEDS: ASPIRIN 325MG EC TABLET PO SCH (08:53)
[2019-11-29] MEDS: LOSARTAN POTASSIUM 50 MG TABLET PO SCH (08:53)
[2019-11-29] MEDS: ENOXAPARIN 40MG/0.4ML SYR SUBCUT SCH (08:57)
[2019-11-29] MEDS: GUAIFENESIN 600MG ER TABLET PO SCH ×2 (09:32→20:56)
[2019-11-29] MEDS: CEFTRIAXONE 1 G PREMIX 50 ML IV SCH (13:36)
[2019-11-29] MEDS: DIPHENHYDRAMINE 50MG/ML VIAL IV PRN (20:56)
[2019-11-29] MEDS: ATORVASTATIN CALCIUM 40MG TABLET PO SCH (20:56)
[2019-11-30] VITALS (9 sets, daily range): BP systolic 112–143; BP diastolic 51–95
[2019-11-30] MEDS: IPRATROPIUM/ALBUTEROL 0.5-3(2.5)MG/3ML NEB HHN SCH ×5 (00:31→16:00)
[2019-11-30] MEDS: SODIUM CHLORIDE 0.9% INJ 3ML FLUSH IVF SCH ×2 (06:31→11:20)
[2019-11-30 06:51] LABS: CHLORIDE 99 mEq/L (98-107)
[2019-11-30 06:53] LABS: HEMATOCRIT. 41.3 % (36.0-48.0); HEMOGLOBIN. 13.8 g/dL (12.0-16.0); MEAN CORPUSCULAR HEMOGLOBIN 30.7 pg (28.0-32.0); MEAN CORPUSCULAR VOLUME 91.6 fL (81.0-99.0); MEAN PLATELET VOLUME 9.9 fl (7.4-10.4); PLATELET 144 x1000/uL (130-400); RED CELL DISTRIBUTION WIDTH 15.8 % (11.6-14.6)
[2019-11-30] MEDS ORDERED: METHYLPREDNISOLONE SOD SUCC 40 MG/ML VIAL IV SCH (09:00)
[2019-11-30] MEDS: ASPIRIN 325MG EC TABLET PO SCH (09:29)
[2019-11-30] MEDS: LOSARTAN POTASSIUM 50 MG TABLET PO SCH (09:30)
[2019-11-30] MEDS: GUAIFENESIN 600MG ER TABLET PO SCH (09:30)
[2019-11-30] MEDS: FUROSEMIDE 40MG/4ML VIAL IVP SCH (09:30)
[2019-11-30] MEDS: QUETIAPINE FUMARATE 50MG TABLET PO SCH (09:30)
[2019-11-30] MEDS: AZITHROMYCIN 500 MG TABLET PO SCH (09:30)
[2019-11-30] MEDS: ENOXAPARIN 40MG/0.4ML SYR SUBCUT SCH (10:04)
[2019-11-30] MEDS: HYDROCODONE/ACETAMINOPHEN 10/325MG TABLET PO PRN (10:48)
[2019-11-30 13:34] LABS: PLATELET ESTIMATE NORMAL
[2019-11-30 16:50] LABS: PLATELET ESTIMATE NORMAL
== END 2019-11-30 16:15 | disposition home or self-care (01) | DRG 190 ==
LOC: ER 07:10 → 7WST 11:21 → ENRESERV 11:51 → 6WST 11-27 04:08 → 5EST 11-27 11:00
PROVIDERS: ADMIT Internal Medicine; ATTEND Internal Medicine
PROC: 5A09357 Assistance with Respiratory Ventilation, Less than 24 Consecutive Hours, Continuous Positive Airway Pressure (ICD-10-PCS; principal; 2019-11-27)
DX: I21.4 Non-ST elevation (NSTEMI) myocardial infarction (principal); J96.21 Acute and chronic respiratory failure with hypoxia; I50.23 Acute on chronic systolic (congestive) heart failure; J18.9 Pneumonia, unspecified organism; E87.2 Acidosis; I11.0 Hypertensive heart disease with heart failure; C79.9 Secondary malignant neoplasm of unspecified site; I31.3 Pericardial effusion (noninflammatory); C50.919 Malignant neoplasm of unspecified site of unspecified female breast; I25.10 Atherosclerotic heart disease of native coronary artery without angina pectoris; J44.0 Chronic obstructive pulmonary disease with (acute) lower respiratory infection; J44.1 Chronic obstructive pulmonary disease with (acute) exacerbation; F14.10 Cocaine abuse, uncomplicated; F17.200 Nicotine dependence, unspecified, uncomplicated; F41.1 Generalized anxiety disorder; J70.4 Drug-induced interstitial lung disorders, unspecified; T40.5X5A Adverse effect of cocaine, initial encounter; I34.0 Nonrheumatic mitral (valve) insufficiency; Z20.828 Contact with and (suspected) exposure to other viral communicable diseases; I42.9 Cardiomyopathy, unspecified; Z88.9 Allergy status to unspecified drugs, medicaments and biological substances; Z91.018 Allergy to other foods; Z85.3 Personal history of malignant neoplasm of breast; Z90.12 Acquired absence of left breast and nipple; Z82.49 Family history of ischemic heart disease and other diseases of the circulatory system; Z80.9 Family history of malignant neoplasm, unspecified; Z98.61 Coronary angioplasty status; Y92.89 Other specified places as the place of occurrence of the external cause; Z79.899 Other long term (current) drug therapy; Z91.19 Patient's noncompliance with other medical treatment and regimen
CPT/HCPCS: 36415; 36600; 71045; 73110; 73130; 80053; 80305; 82375; 82805; 82962; 83735; 83880; 84484; 85025; 85379; 87070; 93005; 93306; 94640; 99285; J0696; J1200; J1650; J1940; J2920; J2930; U0003-CS

== ENCOUNTER 2019-12-08 13:16 | Emergency (ER) | payer MEDICAID ==
[~2019-12-08] VITALS: Ht 180.3 cm; Wt 61.0 kg
[~2019-12-08 13:16] MED LIST changes: +OXYC-105 MT
[2019-12-08 13:33] VITALS: BP 131/54
== END 2019-12-08 16:38 | disposition left against medical advice (07) ==
LOC: ER 13:16
DX: Z53.21 Procedure and treatment not carried out due to patient leaving prior to being seen by health care provider (principal)

== ENCOUNTER 2020-09-28 08:53 | Inpatient (IN) | payer MEDICAID ==
[~2020-09-28] VITALS: Ht 180.3 cm; Wt 73.3 kg
[~2020-09-28 08:53] MED LIST changes: +BUPR100T13 PO
[2020-09-28] MEDS ORDERED: ALBUTEROL (0.083%) 2.5MG/3ML NEB HHN STA (09:07)
[2020-09-28] MEDS ORDERED: MAGNESIUM 2 G PREMIX 50 ML IV STA (09:07)
[2020-09-28] MEDS ORDERED: IPRATROPIUM BROMIDE (0.02%) 0.5MG/2.5ML NEB HHN STA (09:07)
[2020-09-28] MEDS ORDERED: METHYLPREDNISOLONE SOD SUCC 125 MG/2 ML VIAL IV STA (09:07)
[2020-09-28 09:52] LABS: BASOPHILS % 0.5 % (0.0-2.0); EOSINOPHILS % 1.1 % (0.0-5.0); HEMATOCRIT. 44.9 % (36.0-48.0); HEMOGLOBIN. 14.6 g/dL (12.0-16.0); LYMPHOCYTES % 13.7 % (20.0-50.0); MEAN CORPUSCULAR HEMOGLOBIN 29.4 pg (28.0-32.0); MEAN CORPUSCULAR VOLUME 90.9 fL (81.0-99.0); MONOCYTES % 8.6 % (2.0-8.0); NEUTROPHILS % 76.1 % (40.0-76.0); PLATELET 165 x1000/uL (130-400); RED BLOOD CELL COUNT 4.94 mill/uL (4.2-5.4); RED CELL DISTRIBUTION WIDTH 16.4 % (11.6-14.6)
[2020-09-28 09:59] LABS: CHLORIDE 110 mEq/L (98-107)
[2020-09-28] MEDS ORDERED: ASPIRIN 325MG EC TABLET PO ONE (11:00)
[2020-09-28] MEDS ORDERED: ENOXAPARIN 60MG/0.6ML SYR SUBCUT ONE (11:00)
[2020-09-28] MEDS ORDERED: MORPHINE SULFATE 4 MG/ML CPJ (NOT FOR IM USE) IV ONE (11:00)
[2020-09-28] MEDS ORDERED: CLONIDINE 0.1MG TABLET PO ONE (11:00)
[2020-09-28] MEDS ORDERED: ONDANSETRON HCL 4MG/2ML INJ IV PRN (15:45)
[2020-09-28] MEDS ORDERED: ACETAMINOPHEN 325MG TABLET PO PRN (15:45)
[2020-09-28] MEDS ORDERED: CLONIDINE 0.1MG TABLET PO PRN (15:45)
[2020-09-28] MEDS: FUROSEMIDE 40MG/4ML VIAL IV SCH (17:00)
[2020-09-28 17:07] LABS: *AMPHETAMINES SCREEN URINE NEGATIVE (NEGATIVE); *BARBITURATES SCREEN URINE NEGATIVE (NEGATIVE); *BENZODIAZEPINES SCREEN URINE NEGATIVE (NEGATIVE); *COCAINE SCREEN URINE PRESUMTIVE POSITIVE (NEGATIVE)
[2020-09-28 17:08] LABS: CANNABINOID URINE SCREEN NEGATIVE (NEGATIVE); METHADONE URINE SCREEN NEGATIVE (NEGATIVE); OPIATES URINE SCREEN PRESUMTIVE POSITIVE (NEGATIVE); PHENCYCLIDINE URINE SCREEN NEGATIVE (NEGATIVE)
[2020-09-28] MEDS: AMLODIPINE 10MG TABLET PO SCH (17:18)
[2020-09-28] MEDS: FUROSEMIDE 40MG/4ML VIAL IVP SCH (17:18)
[2020-09-28] MEDS: METHYLPREDNISOLONE SOD SUCC 40 MG/ML VIAL IV SCH ×2 (17:18→22:35)
[2020-09-28] MEDS: LISINOPRIL 10MG TABLET PO SCH (17:19)
[2020-09-28 17:29] VITALS: BP 162/93
[2020-09-28 17:37] VITALS: BP 162/93
[2020-09-28 20:00] VITALS: BP 147/81
[2020-09-28] MEDS: IPRATROPIUM/ALBUTEROL 0.5-3(2.5)MG/3ML NEB HHN SCH (20:24)
[2020-09-28] MEDS: QUETIAPINE FUMARATE 50MG TABLET PO SCH (20:55)
[2020-09-28 22:00] VITALS: BP 146/69
[2020-09-29] VITALS (12 sets, daily range): BP systolic 122–151; BP diastolic 60–129
[2020-09-29] MEDS: IPRATROPIUM/ALBUTEROL 0.5-3(2.5)MG/3ML NEB HHN SCH ×6 (00:39→21:13)
[2020-09-29] MEDS: METHYLPREDNISOLONE SOD SUCC 40 MG/ML VIAL IV SCH (05:36)
[2020-09-29 07:19] LABS: HEMATOCRIT. 43.7 % (36.0-48.0); HEMOGLOBIN. 13.9 g/dL (12.0-16.0); MEAN CORPUSCULAR HEMOGLOBIN 28.8 pg (28.0-32.0); MEAN CORPUSCULAR VOLUME 90.6 fL (81.0-99.0); MEAN PLATELET VOLUME 9.5 fl (7.4-10.4); PLATELET 149 x1000/uL (130-400); RED BLOOD CELL COUNT 4.82 mill/uL (4.2-5.4)
[2020-09-29 07:22] LABS: CHLORIDE 111 mEq/L (98-107)
[2020-09-29] MEDS: FUROSEMIDE 40MG/4ML VIAL IV SCH ×2 (09:00→17:36)
[2020-09-29] MEDS: FUROSEMIDE 40MG/4ML VIAL IVP SCH (09:35)
[2020-09-29] MEDS: AMLODIPINE 10MG TABLET PO SCH (09:35)
[2020-09-29] MEDS: LISINOPRIL 10MG TABLET PO SCH (09:35)
[2020-09-29] MEDS: HYDROCODONE/ACETAMINOPHEN 5/325MG TABLET PO PRN ×2 (09:43→17:36)
[2020-09-29] MEDS: ENOXAPARIN 40MG/0.4ML SYR SUBCUT SCH (11:04)
[2020-09-29 14:14] LABS: PLATELET ESTIMATE NORMAL
[2020-09-29] MEDS: QUETIAPINE FUMARATE 50MG TABLET PO SCH (21:28)
[2020-09-30] VITALS (12 sets, daily range): BP systolic 115–167; BP diastolic 62–96
[2020-09-30] MEDS: IPRATROPIUM/ALBUTEROL 0.5-3(2.5)MG/3ML NEB HHN SCH ×6 (00:52→21:25)
[2020-09-30] MEDS: HYDROCODONE/ACETAMINOPHEN 5/325MG TABLET PO PRN ×3 (05:32→15:40)
[2020-09-30] MEDS: FUROSEMIDE 40MG/4ML VIAL IV SCH ×2 (09:14→17:32)
[2020-09-30] MEDS: AMLODIPINE 10MG TABLET PO SCH (09:14)
[2020-09-30] MEDS: METHYLPREDNISOLONE SOD SUCC 40 MG/ML VIAL IV SCH (09:14)
[2020-09-30] MEDS: LISINOPRIL 10MG TABLET PO SCH (09:14)
[2020-09-30] MEDS ORDERED: LACTULOSE 20G/30ML UDC PO NR (11:00)
[2020-09-30] MEDS: POLYETHYLENE GLYCOL 3350 (17GM) 1 DOSE PACK PO SCH (11:48)
[2020-09-30] MEDS: ENOXAPARIN 40MG/0.4ML SYR SUBCUT SCH (11:49)
[2020-09-30] MEDS: QUETIAPINE FUMARATE 50MG TABLET PO SCH (20:56)
[2020-10-01] VITALS (10 sets, daily range): BP systolic 121–133; BP diastolic 67–78
[2020-10-01] MEDS: IPRATROPIUM/ALBUTEROL 0.5-3(2.5)MG/3ML NEB HHN SCH ×6 (01:04→20:57)
[2020-10-01] MEDS: HYDROCODONE/ACETAMINOPHEN 5/325MG TABLET PO PRN ×3 (04:55→21:35)
[2020-10-01] MEDS: POLYETHYLENE GLYCOL 3350 (17GM) 1 DOSE PACK PO SCH (09:00)
[2020-10-01] MEDS: LISINOPRIL 10MG TABLET PO SCH (09:29)
[2020-10-01] MEDS: FUROSEMIDE 40MG/4ML VIAL IV SCH ×2 (09:30→17:00)
[2020-10-01] MEDS: METHYLPREDNISOLONE SOD SUCC 40 MG/ML VIAL IV SCH (09:30)
[2020-10-01] MEDS: AMLODIPINE 10MG TABLET PO SCH (09:30)
[2020-10-01] MEDS: ENOXAPARIN 40MG/0.4ML SYR SUBCUT SCH (11:16)
[2020-10-01] MEDS ORDERED: LIDOCAINE HCL/PF 1% 2ML VIAL ONE (14:30)
[2020-10-01 15:45] LABS: BG BASE EXCESS 5.7 mmol/L (-2.0-2.0); BG CARBOXYHEMOGLOBIN 1.1 % (0.5-1.5); BG DEOXYHEMOGLOBIN 8.8 % (0.0-5.0); BG FRACTION INSPIRED OXYGEN 21; BG HCO3 ACT 31.1 mmol/L (22.0-26.0); BG METHEMOGLOBIN 0.2 % (0.0-1.5); BG OXYGEN SATURATION 91.1 % (92.0-98.5); BG OXYHEMOGLOBIN 89.9 % (94.0-97.0); BG PCO2 47.1 mmHg (35.0-45.0); BG PH 7.437 (7.350-7.450); BG PO2 62.2 mmHg (75.0-100.0); BG SAMPLE SITE RIGHT RADIAL; BG TOTAL HEMOGLOBIN 16.2 g/dL (12.0-18.0); BG VENT MODE ROOM AIR
[2020-10-01] MEDS: QUETIAPINE FUMARATE 50MG TABLET PO SCH (21:32)
[2020-10-02] VITALS (7 sets, daily range): BP systolic 111–158; BP diastolic 50–90
[2020-10-02] MEDS: IPRATROPIUM/ALBUTEROL 0.5-3(2.5)MG/3ML NEB HHN SCH ×6 (01:14→20:27)
[2020-10-02] MEDS: HYDROCODONE/ACETAMINOPHEN 5/325MG TABLET PO PRN ×2 (03:16→21:11)
[2020-10-02] MEDS: METHYLPREDNISOLONE SOD SUCC 40 MG/ML VIAL IV SCH (08:16)
[2020-10-02] MEDS: FUROSEMIDE 40MG/4ML VIAL IV SCH ×2 (08:16→17:59)
[2020-10-02] MEDS: AMLODIPINE 10MG TABLET PO SCH (08:18)
[2020-10-02] MEDS: POLYETHYLENE GLYCOL 3350 (17GM) 1 DOSE PACK PO SCH (08:19)
[2020-10-02] MEDS: LISINOPRIL 10MG TABLET PO SCH (08:19)
[2020-10-02] MEDS: ENOXAPARIN 40MG/0.4ML SYR SUBCUT SCH (11:01)
[2020-10-02] MEDS ORDERED: FURO40TA5 MT (14:12)
[2020-10-02] MEDS: OXYCODONE HCL/ACETAMINOPHEN 5/325MG TABLET PO PRN (14:44)
[2020-10-02] MEDS: DOCUSATE SODIUM 100MG CAPSULE PO PRN (14:50)
[2020-10-02] MEDS: QUETIAPINE FUMARATE 50MG TABLET PO SCH (21:11)
[2020-10-03] VITALS: BP 133/77
[2020-10-03] MEDS: OXYCODONE HCL/ACETAMINOPHEN 5/325MG TABLET PO PRN ×3 (00:15→16:58)
[2020-10-03 04:00] VITALS: BP 151/85
[2020-10-03] MEDS: IPRATROPIUM/ALBUTEROL 0.5-3(2.5)MG/3ML NEB HHN SCH ×6 (04:00→20:41)
[2020-10-03] MEDS: HYDROCODONE/ACETAMINOPHEN 5/325MG TABLET PO PRN ×2 (05:14→12:04)
[2020-10-03] MEDS: MAGNESIUM/ALUMINUM HYDROXIDE/SIMETHICONE 30ML UDC PO PRN (05:17)
[2020-10-03 08:00] VITALS: BP 147/87
[2020-10-03] MEDS: FUROSEMIDE 40MG/4ML VIAL IV SCH ×2 (09:39→16:57)
[2020-10-03] MEDS: PREDNISONE 20MG TABLET PO SCH (09:39)
[2020-10-03] MEDS: AMLODIPINE 10MG TABLET PO SCH (09:39)
[2020-10-03] MEDS: LISINOPRIL 10MG TABLET PO SCH (09:40)
[2020-10-03] MEDS: POLYETHYLENE GLYCOL 3350 (17GM) 1 DOSE PACK PO SCH ×2 (09:40→10:03)
[2020-10-03 12:00] VITALS: BP 138/82
[2020-10-03] MEDS: ENOXAPARIN 40MG/0.4ML SYR SUBCUT SCH (12:04)
[2020-10-03 16:00] VITALS: BP 125/73
[2020-10-03 20:00] VITALS: BP 134/75
[2020-10-03] MEDS: QUETIAPINE FUMARATE 50MG TABLET PO SCH (21:44)
[2020-10-04] VITALS: BP 107/65
[2020-10-04] MEDS: OXYCODONE HCL/ACETAMINOPHEN 5/325MG TABLET PO PRN (00:18)
[2020-10-04] MEDS: IPRATROPIUM/ALBUTEROL 0.5-3(2.5)MG/3ML NEB HHN SCH ×3 (01:19→07:50)
[2020-10-04 04:00] VITALS: BP 109/76
[2020-10-04] MEDS: HYDROCODONE/ACETAMINOPHEN 5/325MG TABLET PO PRN ×2 (04:40→09:20)
[2020-10-04] MEDS: MAGNESIUM/ALUMINUM HYDROXIDE/SIMETHICONE 30ML UDC PO PRN (04:42)
[2020-10-04 08:00] VITALS: BP 144/91
[2020-10-04] MEDS: FUROSEMIDE 40MG/4ML VIAL IV SCH (09:18)
[2020-10-04] MEDS: DOCUSATE SODIUM 100MG CAPSULE PO PRN (09:18)
[2020-10-04] MEDS: PREDNISONE 20MG TABLET PO SCH (09:18)
[2020-10-04] MEDS: LISINOPRIL 10MG TABLET PO SCH (09:18)
[2020-10-04] MEDS: AMLODIPINE 10MG TABLET PO SCH (09:20)
[2020-10-04 09:42] VITALS: BP 144/91
== END 2020-10-04 09:50 | disposition home or self-care (01) | DRG 816 ==
LOC: ER 08:53 → 3WST 13:48 → EDBEDREQSVC 13:52 → ENRESERV 14:21 → 6EST 10-02 13:10
PROVIDERS: ADMIT Hospitalist; ATTEND Hospitalist
PROC: 5A09357 Assistance with Respiratory Ventilation, Less than 24 Consecutive Hours, Continuous Positive Airway Pressure (ICD-10-PCS; principal; 2020-09-28)
DX: T40.5X1A Poisoning by cocaine, accidental (unintentional), initial encounter (principal); J96.01 Acute respiratory failure with hypoxia; I21.4 Non-ST elevation (NSTEMI) myocardial infarction; I50.43 Acute on chronic combined systolic (congestive) and diastolic (congestive) heart failure; I11.0 Hypertensive heart disease with heart failure; J68.0 Bronchitis and pneumonitis due to chemicals, gases, fumes and vapors; I27.29 Other secondary pulmonary hypertension; F14.10 Cocaine abuse, uncomplicated; I25.10 Atherosclerotic heart disease of native coronary artery without angina pectoris; F17.210 Nicotine dependence, cigarettes, uncomplicated; Z20.822 Contact with and (suspected) exposure to COVID-19; Z90.12 Acquired absence of left breast and nipple; Z85.3 Personal history of malignant neoplasm of breast; Z82.49 Family history of ischemic heart disease and other diseases of the circulatory system; Z79.899 Other long term (current) drug therapy; Z91.018 Allergy to other foods; Y92.89 Other specified places as the place of occurrence of the external cause; Z59.0 Homelessness; Z71.89 Other specified counseling
CPT/HCPCS: 36415; 36600; 71045; 80053; 80305; 80307; 82375; 82805; 83880; 84484; 85025; 87426; 93005; 93306; 94640; 94660; 99291; J1650; J1940; J2270; J2920; J2930; J3475; J3490; J7512

== ENCOUNTER 2020-10-22 07:36 | Inpatient (IN) | payer MEDICAID ==
[~2020-10-22] VITALS: Ht 162.6 cm; Wt 60.8 kg
[2020-10-22] VITALS (33 sets, daily range): BP systolic 112–164; BP diastolic 71–109
[~2020-10-22 07:36] MED LIST changes: +FURO40TA5 MT
[2020-10-22] MEDS ORDERED: ETOMIDATE 2MG/ML 10ML VIAL IV ONE ×2 (08:12→09:45)
[2020-10-22] MEDS ORDERED: SUCCINYLCHOLINE CHLORIDE 200MG/10ML IV ONE ×2 (08:12→09:45)
[2020-10-22] MEDS ORDERED: ALBUTEROL (0.083%) 2.5MG/3ML NEB HHN STA ×2 (08:19→08:55)
[2020-10-22] MEDS ORDERED: ASPIRIN 325MG EC TABLET PO ONE (08:30)
[2020-10-22] MEDS ORDERED: SODIUM CHLORIDE 0.9% 1000ML BAG (SEPSIS BOLUS) IV ONE (08:30)
[2020-10-22] MEDS ORDERED: AZITHROMYCIN 500 MG in DEXT 5% WATER 250 ML IV ONE (08:30)
[2020-10-22] MEDS ORDERED: CEFTRIAXONE 1 G PREMIX 50 ML IV ONE (08:30)
[2020-10-22 08:45] LABS: BASOPHILS % 0.6 % (0.0-2.0); EOSINOPHILS % 0.7 % (0.0-5.0); HEMATOCRIT. 57.8 % (36.0-48.0); HEMOGLOBIN. 18.4 g/dL (12.0-16.0); LYMPHOCYTES % 28.1 % (20.0-50.0); MEAN CORPUSCULAR HEMOGLOBIN 27.9 pg (28.0-32.0); MEAN CORPUSCULAR VOLUME 87.7 fL (81.0-99.0); MONOCYTES % 6.7 % (2.0-8.0); NEUTROPHILS % 63.9 % (40.0-76.0); PLATELET 263 x1000/uL (130-400); RED BLOOD CELL COUNT 6.59 mill/uL (4.2-5.4)
[2020-10-22 08:55] LABS: BG BASE EXCESS -6.2 mmol/L (-2.0-2.0); BG CARBOXYHEMOGLOBIN 3.4 % (0.5-1.5); BG DEOXYHEMOGLOBIN 18.9 % (0.0-5.0); BG FRACTION INSPIRED OXYGEN 100; BG METHEMOGLOBIN 0.3 % (0.0-1.5); BG OXYGEN SATURATION 80.4 % (92.0-98.5); BG OXYHEMOGLOBIN 77.4 % (94.0-97.0); BG PCO2 59.7 mmHg (35.0-45.0); BG PH 7.204 (7.350-7.450); BG PO2 51.9 mmHg (75.0-100.0); BG SAMPLE SITE RIGHT RADIAL; BG TOTAL HEMOGLOBIN 17.4 g/dL (12.0-18.0); BG VENT MODE MASK - NRB
[2020-10-22 08:55] LABS: D-DIMER 2.57 mg/L FEU (<0.50); INR 1.3; PARTIAL THROMBOPLASTIN TIME 25.2 sec (23.4-31.0); PROTHROMBIN TIME 13.7 sec (9.6-11.0)
[2020-10-22] MEDS ORDERED: IPRATROPIUM BROMIDE (0.02%) 0.5MG/2.5ML NEB HHN STA (08:55)
[2020-10-22] MEDS ORDERED: METHYLPREDNISOLONE SOD SUCC 125 MG/2 ML VIAL IV STA (08:55)
[2020-10-22] MEDS ORDERED: PROPOFOL 10MG/ML 100ML 100 ML IV STA ×2 (09:44→10:54)
[2020-10-22 10:39] LABS: CHLORIDE 110 mEq/L (98-107)
[2020-10-22 10:42] LABS: ETHANOL BLOOD < 10 mg/dL
[2020-10-22] MEDS ORDERED: VANCOMYCIN 1 G PREMIX 200 ML IV SCH (10:45)
[2020-10-22 10:47] LABS: BG BASE EXCESS -9.3 mmol/L (-2.0-2.0); BG CARBOXYHEMOGLOBIN 2.4 % (0.5-1.5); BG DEOXYHEMOGLOBIN 32.2 % (0.0-5.0); BG HCO3 ACT 25.1 mmol/L (22.0-26.0); BG METHEMOGLOBIN 0.2 % (0.0-1.5); BG OXYGEN SATURATION 66.9 % (92.0-98.5); BG OXYHEMOGLOBIN 65.2 % (94.0-97.0); BG PCO2 99.8 mmHg (35.0-45.0); BG PH 7.018 (7.350-7.450); BG PO2 47.8 mmHg (75.0-100.0); BG SAMPLE SITE RIGHT BRACHIAL; BG TOTAL HEMOGLOBIN 17.7 g/dL (12.0-18.0); BG VENT MODE VENT- PRVC
[2020-10-22] MEDS ORDERED: GUAIFENESIN 200MG/10ML SUGAR FREE UDC PO PRN (11:00)
[2020-10-22] MEDS ORDERED: HYDROCODONE/ACETAMINOPHEN 5/325MG TABLET PO PRN (11:00)
[2020-10-22] MEDS ORDERED: LORAZEPAM 2MG/ML CPJ IV PRN (11:00)
[2020-10-22] MEDS ORDERED: MAGNESIUM/ALUMINUM HYDROXIDE/SIMETHICONE 30ML UDC PO PRN (11:00)
[2020-10-22] MEDS ORDERED: ONDANSETRON HCL 4MG/2ML INJ IV PRN (11:00)
[2020-10-22] MEDS ORDERED: MORPHINE SULFATE 2 MG/ML CPJ (NOT FOR IM USE) IV PRN (11:00)
[2020-10-22] MEDS ORDERED: DEXT 5%/0.45% NACL 1000ML 1,000 ML IV SCH (11:00)
[2020-10-22] MEDS ORDERED: DOCUSATE SODIUM 100MG CAPSULE PO PRN (11:00)
[2020-10-22] MEDS ORDERED: IPRATROPIUM/ALBUTEROL 0.5-3(2.5)MG/3ML NEB HHN PRN (11:00)
[2020-10-22] MEDS ORDERED: FUROSEMIDE 100MG/10ML VIAL IVP ONE (11:30)
[2020-10-22] MEDS ORDERED: ENOXAPARIN 60MG/0.6ML SYR SUBCUT ONE (11:30)
[2020-10-22] MEDS ORDERED: MIDAZOLAM 100MG/100ML PMX 100 ML IV PRN ×2 (11:30→17:00)
[2020-10-22] MEDS: ENOXAPARIN 40MG/0.4ML SYR SUBCUT SCH ×3 (11:41→11:51)
[2020-10-22] MEDS ORDERED: MIDAZOLAM HCL 100 MG in SODIUM CHLORIDE 0.9% 80 ML IV PRN (11:45)
[2020-10-22] MEDS: HYDRALAZINE 20MG/ML VIAL IV PRN (11:49)
[2020-10-22] MEDS ORDERED: PROPOFOL 10MG/ML 100ML 100 ML IV PRN (12:00)
[2020-10-22] MEDS ORDERED: ASPIRIN 300MG SUPP PR ONE (12:15)
[2020-10-22] MEDS ORDERED: IOHEXOL-350 100 ML BOTTLE ONE (13:03)
[2020-10-22 13:08] LABS: BG BASE EXCESS -4.8 mmol/L (-2.0-2.0); BG CARBOXYHEMOGLOBIN 2.1 % (0.5-1.5); BG DEOXYHEMOGLOBIN 14.6 % (0.0-5.0); BG FRACTION INSPIRED OXYGEN 100; BG HCO3 ACT 24.6 mmol/L (22.0-26.0); BG METHEMOGLOBIN 0.3 % (0.0-1.5); BG PCO2 63.4 mmHg (35.0-45.0); BG PH 7.206 (7.350-7.450); BG PO2 56.5 mmHg (75.0-100.0); BG SAMPLE SITE RIGHT RADIAL; BG TOTAL HEMOGLOBIN 15.8 g/dL (12.0-18.0); BG VENT MODE VENT- PRVC
[2020-10-22] MEDS ORDERED: ENOXAPARIN 60MG/0.6ML SYR SUBCUT NR (13:15)
[2020-10-22] MEDS: SODIUM CHLORIDE 0.9% INJ 3ML FLUSH IVF SCH ×2 (13:57→21:08)
[2020-10-22] MEDS: LOSARTAN POTASSIUM 25 MG TABLET PO SCH (14:00)
[2020-10-22 14:49] LABS: CREATINE KINASE MB FRACTION 7.6 ng/mL (0.5-3.6)
[2020-10-22 15:25] LABS: CLARITY URINE CLEAR (CLEAR); COLOR URINE YELLOW (YELLOW); KETONES URINE NEGATIVE (NEGATIVE); LEUKOCYTE ESTERASE URINE NEGATIVE (NEGATIVE); NITRITE URINE NEGATIVE (NEGATIVE); OCCULT BLOOD URINE TRACE (NEGATIVE); PROTEIN URINE 2+ (NEGATIVE); SPECIFIC GRAVITY URINE 1.056 (1.005-1.030)
[2020-10-22] MEDS: FENTANYL CITRATE/PF 2,500 MCG in SODIUM CHLORIDE 0.9% 200 ML IV PRN (16:56)
[2020-10-22 16:58] LABS: *AMPHETAMINES SCREEN URINE NEGATIVE (NEGATIVE); *BARBITURATES SCREEN URINE NEGATIVE (NEGATIVE); *BENZODIAZEPINES SCREEN URINE PRESUMTIVE POSITIVE (NEGATIVE); *COCAINE SCREEN URINE PRESUMTIVE POSITIVE (NEGATIVE)
[2020-10-22 16:59] LABS: CANNABINOID URINE SCREEN NEGATIVE (NEGATIVE); METHADONE URINE SCREEN NEGATIVE (NEGATIVE); OPIATES URINE SCREEN NEGATIVE (NEGATIVE); PHENCYCLIDINE URINE SCREEN NEGATIVE (NEGATIVE)
[2020-10-22] MEDS: FUROSEMIDE 100MG/10ML VIAL IVP SCH (17:24)
[2020-10-22] MEDS: ENOXAPARIN 60MG/0.6ML SYR SUBCUT SCH (20:09)
[2020-10-22] MEDS: MIDAZOLAM HCL 100 MG in SODIUM CHLORIDE 0.9% 100 ML IV PRN (21:03)
[2020-10-22] MEDS: BUDESONIDE 0.5MG/2ML NEB HHN SCH (21:26)
[2020-10-22] MEDS: IPRATROPIUM/ALBUTEROL 0.5-3(2.5)MG/3ML NEB HHN SCH (21:26)
[2020-10-22 23:50] LABS: CREATINE KINASE MB FRACTION 6.3 ng/mL (0.5-3.6)
[2020-10-23] VITALS (71 sets, daily range): BP systolic 81–155; BP diastolic 58–114
[2020-10-23] MEDS: IPRATROPIUM/ALBUTEROL 0.5-3(2.5)MG/3ML NEB HHN SCH ×6 (00:07→20:23)
[2020-10-23] MEDS: FUROSEMIDE 100MG/10ML VIAL IVP SCH ×2 (06:17→16:50)
[2020-10-23 06:23] LABS: BASOPHILS % 0.5 % (0.0-2.0); EOSINOPHILS % 0.1 % (0.0-5.0); HEMATOCRIT. 43.6 % (36.0-48.0); HEMOGLOBIN. 14.1 g/dL (12.0-16.0); LYMPHOCYTES % 11.3 % (20.0-50.0); MEAN CORPUSCULAR VOLUME 86.6 fL (81.0-99.0); MEAN PLATELET VOLUME 9.7 fl (7.4-10.4); MONOCYTES % 5.5 % (2.0-8.0); NEUTROPHILS % 82.6 % (40.0-76.0); PLATELET 167 x1000/uL (130-400); RED BLOOD CELL COUNT 5.03 mill/uL (4.2-5.4); RED CELL DISTRIBUTION WIDTH 17.8 % (11.6-14.6)
[2020-10-23 06:33] LABS: CHLORIDE 112 mEq/L (98-107)
[2020-10-23] MEDS: LOSARTAN POTASSIUM 25 MG TABLET PO SCH (08:28)
[2020-10-23] MEDS: MIDAZOLAM HCL 100 MG in SODIUM CHLORIDE 0.9% 100 ML IV PRN (08:29)
[2020-10-23] MEDS: ENOXAPARIN 60MG/0.6ML SYR SUBCUT SCH (08:32)
[2020-10-23] MEDS: BUDESONIDE 0.5MG/2ML NEB HHN SCH ×2 (08:44→20:23)
[2020-10-23 08:50] LABS: BG BASE EXCESS 2.4 mmol/L (-2.0-2.0); BG CARBOXYHEMOGLOBIN 0.4 % (0.5-1.5); BG DEOXYHEMOGLOBIN 4.7 % (0.0-5.0); BG FRACTION INSPIRED OXYGEN 1008; BG HCO3 ACT 26.3 mmol/L (22.0-26.0); BG METHEMOGLOBIN 0.1 % (0.0-1.5); BG OXYGEN SATURATION 95.3 % (92.0-98.5); BG OXYHEMOGLOBIN 94.8 % (94.0-97.0); BG PCO2 38.2 mmHg (35.0-45.0); BG PH 7.455 (7.350-7.450); BG PO2 75.5 mmHg (75.0-100.0); BG SAMPLE SITE RIGHT BRACHIAL; BG TOTAL HEMOGLOBIN 15.1 g/dL (12.0-18.0); BG TOTAL RESPIRATORY RATE 30 b/min; BG VENT MODE PRVC
[2020-10-23] MEDS: FENTANYL CITRATE/PF 2,500 MCG in SODIUM CHLORIDE 0.9% 200 ML IV PRN (16:56)
[2020-10-23] MEDS: ENOXAPARIN 80MG/0.8ML SYR SUBCUT SCH (21:42)
[2020-10-24] VITALS (81 sets, daily range): BP systolic 80–152; BP diastolic 48–97
[2020-10-24] MEDS: IPRATROPIUM/ALBUTEROL 0.5-3(2.5)MG/3ML NEB HHN SCH ×7 (00:26→23:39)
[2020-10-24] MEDS: MIDAZOLAM HCL 100 MG in SODIUM CHLORIDE 0.9% 100 ML IV PRN (02:22)
[2020-10-24 05:47] LABS: BASOPHILS % 0.4 % (0.0-2.0); EOSINOPHILS % 0.7 % (0.0-5.0); HEMATOCRIT. 45.2 % (36.0-48.0); HEMOGLOBIN. 14.5 g/dL (12.0-16.0); LYMPHOCYTES % 17.1 % (20.0-50.0); MEAN CORPUSCULAR HEMOGLOBIN 27.5 pg (28.0-32.0); MEAN CORPUSCULAR VOLUME 85.7 fL (81.0-99.0); MEAN PLATELET VOLUME 8.8 fl (7.4-10.4); MONOCYTES % 8.3 % (2.0-8.0); NEUTROPHILS % 73.5 % (40.0-76.0); PLATELET 150 x1000/uL (130-400); RED BLOOD CELL COUNT 5.28 mill/uL (4.2-5.4); RED CELL DISTRIBUTION WIDTH 17.7 % (11.6-14.6)
[2020-10-24 05:53] LABS: CHLORIDE 108 mEq/L (98-107)
[2020-10-24] MEDS: BUDESONIDE 0.5MG/2ML NEB HHN SCH ×2 (08:01→19:48)
[2020-10-24 08:10] LABS: BG BASE EXCESS 5.9 mmol/L (-2.0-2.0); BG CARBOXYHEMOGLOBIN 0.4 % (0.5-1.5); BG DEOXYHEMOGLOBIN 4.3 % (0.0-5.0); BG FRACTION INSPIRED OXYGEN 80; BG HCO3 ACT 28.3 mmol/L (22.0-26.0); BG METHEMOGLOBIN 0.4 % (0.0-1.5); BG OXYGEN SATURATION 95.7 % (92.0-98.5); BG OXYHEMOGLOBIN 94.9 % (94.0-97.0); BG PCO2 34.1 mmHg (35.0-45.0); BG PH 7.537 (7.350-7.450); BG PO2 74.6 mmHg (75.0-100.0); BG SAMPLE SITE RIGHT RADIAL; BG TOTAL HEMOGLOBIN 14.7 g/dL (12.0-18.0); BG VENT MODE VENT- PRVC
[2020-10-24] MEDS: ENOXAPARIN 80MG/0.8ML SYR SUBCUT SCH ×2 (08:26→20:12)
[2020-10-24] MEDS: FUROSEMIDE 100MG/10ML VIAL IVP SCH ×2 (08:27→17:01)
[2020-10-24] MEDS: LOSARTAN POTASSIUM 25 MG TABLET PO SCH (09:00)
[2020-10-24] MEDS: PHENYLEPHRINE 100 MG in DEXT 5% WATER 240 ML IV PRN (18:54)
[2020-10-24] MEDS: ACETAMINOPHEN 325MG TABLET PO PRN (23:50)
[2020-10-25] VITALS (92 sets, daily range): BP systolic 91–151; BP diastolic 61–93
[2020-10-25] MEDS: IPRATROPIUM/ALBUTEROL 0.5-3(2.5)MG/3ML NEB HHN SCH ×5 (03:38→20:35)
[2020-10-25] MEDS: MIDAZOLAM HCL 100 MG in SODIUM CHLORIDE 0.9% 100 ML IV PRN (05:42)
[2020-10-25 05:53] LABS: BASOPHILS % 0.5 % (0.0-2.0); EOSINOPHILS % 0.3 % (0.0-5.0); HEMATOCRIT. 44.1 % (36.0-48.0); HEMOGLOBIN. 14.5 g/dL (12.0-16.0); LYMPHOCYTES % 9.8 % (20.0-50.0); MEAN CORPUSCULAR HEMOGLOBIN 28.3 pg (28.0-32.0); MEAN CORPUSCULAR VOLUME 86.5 fL (81.0-99.0); MEAN PLATELET VOLUME 9.6 fl (7.4-10.4); MONOCYTES % 11.2 % (2.0-8.0); NEUTROPHILS % 78.2 % (40.0-76.0); PLATELET 192 x1000/uL (130-400); RED CELL DISTRIBUTION WIDTH 17.5 % (11.6-14.6)
[2020-10-25] MEDS: FENTANYL CITRATE/PF 2,500 MCG in SODIUM CHLORIDE 0.9% 200 ML IV PRN (06:22)
[2020-10-25] MEDS: FUROSEMIDE 100MG/10ML VIAL IVP SCH (08:00)
[2020-10-25] MEDS: LOSARTAN POTASSIUM 25 MG TABLET PO SCH (08:01)
[2020-10-25] MEDS: ENOXAPARIN 80MG/0.8ML SYR SUBCUT SCH (08:01)
[2020-10-25] MEDS: BUDESONIDE 0.5MG/2ML NEB HHN SCH (08:32)
[2020-10-25 09:29] LABS: BG BASE EXCESS 7.6 mmol/L (-2.0-2.0); BG CARBOXYHEMOGLOBIN 1.4 % (0.5-1.5); BG DEOXYHEMOGLOBIN 1.6 % (0.0-5.0); BG FRACTION INSPIRED OXYGEN 60; BG HCO3 ACT 32.8 mmol/L (22.0-26.0); BG METHEMOGLOBIN 0.3 % (0.0-1.5); BG OXYGEN SATURATION 98.4 % (92.0-98.5); BG OXYHEMOGLOBIN 96.7 % (94.0-97.0); BG PCO2 47.9 mmHg (35.0-45.0); BG PH 7.454 (7.350-7.450); BG PO2 112.6 mmHg (75.0-100.0); BG SAMPLE SITE RIGHT RADIAL; BG TOTAL HEMOGLOBIN 15.2 g/dL (12.0-18.0); BG VENT MODE VENT- PRVC
[2020-10-25] MEDS: FUROSEMIDE 40MG/4ML VIAL IVP SCH (17:09)
[2020-10-26] VITALS (80 sets, daily range): BP systolic 98–132; BP diastolic 61–81
[2020-10-26] MEDS: IPRATROPIUM/ALBUTEROL 0.5-3(2.5)MG/3ML NEB HHN SCH ×6 (00:26→20:34)
[2020-10-26] MEDS: BUDESONIDE 0.5MG/2ML NEB HHN SCH ×3 (00:27→20:25)
[2020-10-26 05:46] LABS: BASOPHILS % 0.2 % (0.0-2.0); EOSINOPHILS % 1.1 % (0.0-5.0); HEMATOCRIT. 43.4 % (36.0-48.0); HEMOGLOBIN. 14.2 g/dL (12.0-16.0); LYMPHOCYTES % 9.3 % (20.0-50.0); MEAN CORPUSCULAR VOLUME 85.9 fL (81.0-99.0); MEAN PLATELET VOLUME 9.1 fl (7.4-10.4); MONOCYTES % 9.6 % (2.0-8.0); NEUTROPHILS % 79.8 % (40.0-76.0); PLATELET 136 x1000/uL (130-400); RED BLOOD CELL COUNT 5.05 mill/uL (4.2-5.4); RED CELL DISTRIBUTION WIDTH 17.7 % (11.6-14.6)
[2020-10-26] MEDS: FUROSEMIDE 40MG/4ML VIAL IVP SCH ×2 (06:04→18:00)
[2020-10-26] MEDS: LOSARTAN POTASSIUM 25 MG TABLET PO SCH (09:00)
[2020-10-26] MEDS: ENOXAPARIN 80MG/0.8ML SYR SUBCUT SCH (09:00)
[2020-10-26 10:28] LABS: BG BASE EXCESS 8.9 mmol/L (-2.0-2.0); BG CARBOXYHEMOGLOBIN 0.3 % (0.5-1.5); BG DEOXYHEMOGLOBIN 6.3 % (0.0-5.0); BG FRACTION INSPIRED OXYGEN 60; BG HCO3 ACT 32.7 mmol/L (22.0-26.0); BG METHEMOGLOBIN 0.1 % (0.0-1.5); BG OXYGEN SATURATION 93.7 % (92.0-98.5); BG OXYHEMOGLOBIN 93.3 % (94.0-97.0); BG PH 7.519 (7.350-7.450); BG PO2 68.9 mmHg (75.0-100.0); BG SAMPLE SITE RIGHT RADIAL; BG TOTAL HEMOGLOBIN 15.3 g/dL (12.0-18.0); BG VENT MODE VENT- PRVC
[2020-10-26] MEDS ORDERED: POTASSIUM CHLORIDE 20MEQ/PACKET PO NR (10:45)
[2020-10-26] MEDS ORDERED: DOCUSATE SODIUM 100MG CAPSULE NG PRN (21:45)
[2020-10-26] MEDS: FENTANYL CITRATE/PF 2,500 MCG in SODIUM CHLORIDE 0.9% 200 ML IV PRN (21:56)
[2020-10-26] MEDS: DOCUSATE SODIUM SUGAR FREE 100MG/10ML UDC NG PRN (23:52)
[2020-10-27] VITALS (51 sets, daily range): BP systolic 92–150; BP diastolic 60–94
[2020-10-27] MEDS: ACETAMINOPHEN 325MG TABLET PO PRN ×2 (00:02→21:26)
[2020-10-27] MEDS: IPRATROPIUM/ALBUTEROL 0.5-3(2.5)MG/3ML NEB HHN SCH ×6 (00:42→20:25)
[2020-10-27 05:30] LABS: BASOPHILS % 0.2 % (0.0-2.0); EOSINOPHILS % 1.4 % (0.0-5.0); HEMOGLOBIN. 14.2 g/dL (12.0-16.0); LYMPHOCYTES % 8.7 % (20.0-50.0); MEAN CORPUSCULAR HEMOGLOBIN 28.2 pg (28.0-32.0); MEAN CORPUSCULAR VOLUME 85.3 fL (81.0-99.0); MEAN PLATELET VOLUME 9.3 fl (7.4-10.4); MONOCYTES % 10.5 % (2.0-8.0); NEUTROPHILS % 79.2 % (40.0-76.0); PLATELET 143 x1000/uL (130-400); RED BLOOD CELL COUNT 5.04 mill/uL (4.2-5.4); RED CELL DISTRIBUTION WIDTH 17.6 % (11.6-14.6)
[2020-10-27] MEDS: FUROSEMIDE 40MG/4ML VIAL IVP SCH ×2 (06:07→17:31)
[2020-10-27] MEDS: BUDESONIDE 0.5MG/2ML NEB HHN SCH ×2 (08:45→20:31)
[2020-10-27] MEDS: LOSARTAN POTASSIUM 25 MG TABLET PO SCH (08:55)
[2020-10-27] MEDS: ENOXAPARIN 80MG/0.8ML SYR SUBCUT SCH (08:55)
[2020-10-27 08:57] LABS: BG BASE EXCESS 4.2 mmol/L (-2.0-2.0); BG CARBOXYHEMOGLOBIN 0.9 % (0.5-1.5); BG FRACTION INSPIRED OXYGEN 60; BG HCO3 ACT 28.4 mmol/L (22.0-26.0); BG METHEMOGLOBIN 0.4 % (0.0-1.5); BG OXYHEMOGLOBIN 95.7 % (94.0-97.0); BG PCO2 40.7 mmHg (35.0-45.0); BG PH 7.461 (7.350-7.450); BG PO2 92.4 mmHg (75.0-100.0); BG SAMPLE SITE RIGHT RADIAL; BG TOTAL HEMOGLOBIN 15.4 g/dL (12.0-18.0); BG VENT MODE VENT- PRVC
[2020-10-27] MEDS: RISPERIDONE 1MG TABLET PO SCH (12:02)
[2020-10-27] MEDS: ACETYLCYSTEINE 100MG/ML 10% VIAL 4ML INH SCH (12:38)
[2020-10-27] MEDS: MIDAZOLAM HCL 100 MG in SODIUM CHLORIDE 0.9% 100 ML IV PRN ×2 (12:38→13:10)
[2020-10-28] VITALS (67 sets, daily range): BP systolic 81–146; BP diastolic 42–85
[2020-10-28] MEDS: ACETYLCYSTEINE 100MG/ML 10% VIAL 4ML INH SCH ×2 (00:17→07:53)
[2020-10-28] MEDS: IPRATROPIUM/ALBUTEROL 0.5-3(2.5)MG/3ML NEB HHN SCH ×6 (00:17→20:24)
[2020-10-28] MEDS: MIDAZOLAM HCL 100 MG in SODIUM CHLORIDE 0.9% 80 ML IV PRN (05:26)
[2020-10-28] MEDS: FENTANYL CITRATE/PF 2,500 MCG in SODIUM CHLORIDE 0.9% 200 ML IV PRN ×2 (05:28→12:22)
[2020-10-28 06:24] LABS: BASOPHILS % 0.3 % (0.0-2.0); EOSINOPHILS % 1.3 % (0.0-5.0); HEMATOCRIT. 44.1 % (36.0-48.0); HEMOGLOBIN. 13.9 g/dL (12.0-16.0); LYMPHOCYTES % 9.2 % (20.0-50.0); MEAN CORPUSCULAR HEMOGLOBIN 27.5 pg (28.0-32.0); MEAN CORPUSCULAR VOLUME 87.2 fL (81.0-99.0); MEAN PLATELET VOLUME 9.8 fl (7.4-10.4); NEUTROPHILS % 75.2 % (40.0-76.0); PLATELET 185 x1000/uL (130-400); RED BLOOD CELL COUNT 5.06 mill/uL (4.2-5.4); RED CELL DISTRIBUTION WIDTH 17.5 % (11.6-14.6)
[2020-10-28] MEDS: BUDESONIDE 0.5MG/2ML NEB HHN SCH ×2 (07:52→20:25)
[2020-10-28] MEDS: ENOXAPARIN 60MG/0.6ML SYR SUBCUT SCH (08:15)
[2020-10-28] MEDS: FUROSEMIDE 40MG/4ML VIAL IVP SCH ×2 (08:15→17:24)
[2020-10-28] MEDS: LOSARTAN POTASSIUM 25 MG TABLET PO SCH (08:15)
[2020-10-28] MEDS: RISPERIDONE 1MG TABLET PO SCH (08:15)
[2020-10-28 09:53] LABS: BG BASE EXCESS 6.9 mmol/L (-2.0-2.0); BG CARBOXYHEMOGLOBIN 0.6 % (0.5-1.5); BG DEOXYHEMOGLOBIN 6.3 % (0.0-5.0); BG FRACTION INSPIRED OXYGEN 50; BG METHEMOGLOBIN 0.3 % (0.0-1.5); BG OXYGEN SATURATION 93.6 % (92.0-98.5); BG OXYHEMOGLOBIN 92.8 % (94.0-97.0); BG PCO2 52.5 mmHg (35.0-45.0); BG PH 7.416 (7.350-7.450); BG PO2 68.9 mmHg (75.0-100.0); BG SAMPLE SITE RIGHT RADIAL; BG TOTAL HEMOGLOBIN 14.2 g/dL (12.0-18.0); BG VENT MODE VENT - PRVC
[2020-10-28] MEDS: DOCUSATE SODIUM SUGAR FREE 100MG/10ML UDC NG PRN (16:02)
[2020-10-28] MEDS: ACETAMINOPHEN 325MG TABLET PO PRN (16:03)
[2020-10-29] VITALS (90 sets, daily range): BP systolic 80–166; BP diastolic 48–136
[2020-10-29] MEDS: IPRATROPIUM/ALBUTEROL 0.5-3(2.5)MG/3ML NEB HHN SCH ×6 (00:20→20:57)
[2020-10-29 05:28] LABS: BASOPHILS % 0.6 % (0.0-2.0); EOSINOPHILS % 0.9 % (0.0-5.0); HEMATOCRIT. 42.8 % (36.0-48.0); HEMOGLOBIN. 13.6 g/dL (12.0-16.0); LYMPHOCYTES % 9.2 % (20.0-50.0); MEAN CORPUSCULAR HEMOGLOBIN 27.3 pg (28.0-32.0); MEAN CORPUSCULAR VOLUME 85.6 fL (81.0-99.0); MEAN PLATELET VOLUME 9.9 fl (7.4-10.4); MONOCYTES % 13.1 % (2.0-8.0); NEUTROPHILS % 76.2 % (40.0-76.0); PLATELET 246 x1000/uL (130-400); RED BLOOD CELL COUNT 5.01 mill/uL (4.2-5.4); RED CELL DISTRIBUTION WIDTH 17.5 % (11.6-14.6)
[2020-10-29] MEDS: FENTANYL CITRATE/PF 2,500 MCG in SODIUM CHLORIDE 0.9% 200 ML IV PRN (05:58)
[2020-10-29] MEDS: MIDAZOLAM HCL 100 MG in SODIUM CHLORIDE 0.9% 80 ML IV PRN (05:59)
[2020-10-29] MEDS: FUROSEMIDE 40MG/4ML VIAL IVP SCH ×2 (07:09→17:09)
[2020-10-29] MEDS: BUDESONIDE 0.5MG/2ML NEB HHN SCH (07:53)
[2020-10-29] MEDS: ENOXAPARIN 60MG/0.6ML SYR SUBCUT SCH (08:41)
[2020-10-29] MEDS: RISPERIDONE 1MG TABLET PO SCH (08:41)
[2020-10-29] MEDS: LOSARTAN POTASSIUM 25 MG TABLET PO SCH (08:41)
[2020-10-29 09:48] LABS: BG CARBOXYHEMOGLOBIN 0.3 % (0.5-1.5); BG DEOXYHEMOGLOBIN 5.6 % (0.0-5.0); BG FRACTION INSPIRED OXYGEN 50; BG HCO3 ACT 31.8 mmol/L (22.0-26.0); BG METHEMOGLOBIN 0.1 % (0.0-1.5); BG OXYGEN SATURATION 94.4 % (92.0-98.5); BG PCO2 45.7 mmHg (35.0-45.0); BG PH 7.461 (7.350-7.450); BG PO2 69.9 mmHg (75.0-100.0); BG SAMPLE SITE RIGHT RADIAL; BG TOTAL HEMOGLOBIN 15.3 g/dL (12.0-18.0); BG VENT MODE VENT - PRVC
[2020-10-29] MEDS: DOCUSATE SODIUM SUGAR FREE 100MG/10ML UDC NG PRN (11:14)
[2020-10-29] MEDS: PHENYLEPHRINE 100 MG in DEXT 5% WATER 240 ML IV PRN (14:36)
[2020-10-30] VITALS (80 sets, daily range): BP systolic 83–172; BP diastolic 32–111
[2020-10-30] MEDS: IPRATROPIUM/ALBUTEROL 0.5-3(2.5)MG/3ML NEB HHN SCH ×6 (01:00→20:35)
[2020-10-30 05:53] LABS: BASOPHILS % 0.7 % (0.0-2.0); EOSINOPHILS % 2.1 % (0.0-5.0); HEMATOCRIT. 44.2 % (36.0-48.0); LYMPHOCYTES % 17.5 % (20.0-50.0); MEAN CORPUSCULAR HEMOGLOBIN 27.3 pg (28.0-32.0); MEAN CORPUSCULAR VOLUME 86.1 fL (81.0-99.0); MEAN PLATELET VOLUME 9.7 fl (7.4-10.4); MONOCYTES % 14.5 % (2.0-8.0); NEUTROPHILS % 65.2 % (40.0-76.0); PLATELET 300 x1000/uL (130-400); RED BLOOD CELL COUNT 5.14 mill/uL (4.2-5.4); RED CELL DISTRIBUTION WIDTH 17.2 % (11.6-14.6)
[2020-10-30] MEDS: FENTANYL CITRATE/PF 2,500 MCG in SODIUM CHLORIDE 0.9% 200 ML IV PRN (06:24)
[2020-10-30] MEDS: MIDAZOLAM HCL 100 MG in SODIUM CHLORIDE 0.9% 80 ML IV PRN ×2 (06:25→23:15)
[2020-10-30] MEDS: FUROSEMIDE 40MG/4ML VIAL IVP SCH ×4 (07:25→17:43)
[2020-10-30 08:08] LABS: INR 1.2; PROTHROMBIN TIME 12.5 sec (9.6-11.0)
[2020-10-30] MEDS: BUDESONIDE 0.5MG/2ML NEB HHN SCH ×3 (08:21→20:44)
[2020-10-30] MEDS: LOSARTAN POTASSIUM 25 MG TABLET PO SCH (08:25)
[2020-10-30] MEDS: RISPERIDONE 1MG TABLET PO SCH (08:26)
[2020-10-30] MEDS: ENOXAPARIN 60MG/0.6ML SYR SUBCUT SCH (08:29)
[2020-10-30 08:30] LABS: BG BASE EXCESS 6.8 mmol/L (-2.0-2.0); BG CARBOXYHEMOGLOBIN 0.3 % (0.5-1.5); BG DEOXYHEMOGLOBIN 9.3 % (0.0-5.0); BG FRACTION INSPIRED OXYGEN 50; BG HCO3 ACT 31.7 mmol/L (22.0-26.0); BG METHEMOGLOBIN 0.3 % (0.0-1.5); BG OXYGEN SATURATION 90.6 % (92.0-98.5); BG OXYHEMOGLOBIN 90.1 % (94.0-97.0); BG PCO2 45.7 mmHg (35.0-45.0); BG PH 7.459 (7.350-7.450); BG PO2 58.4 mmHg (75.0-100.0); BG SAMPLE SITE RIGHT RADIAL; BG TOTAL HEMOGLOBIN 15.4 g/dL (12.0-18.0); BG VENT MODE VENT- PRVC
[2020-10-30] MEDS ORDERED: LIDOCAINE HCL 1% 20ML VIAL (Pyxis) INJ ONE (08:31)
[2020-10-30] MEDS: MIDODRINE HCL 5MG TABLET PO SCH ×3 (11:12→17:43)
[2020-10-30] MEDS ORDERED: POLYETHYLENE GLYCOL 3350 (17GM) 1 DOSE PACK PO SCH (13:45)
[2020-10-31] VITALS (72 sets, daily range): BP systolic 88–141; BP diastolic 45–81
[2020-10-31] MEDS: IPRATROPIUM/ALBUTEROL 0.5-3(2.5)MG/3ML NEB HHN SCH ×6 (01:13→20:44)
[2020-10-31 05:44] LABS: BASOPHILS % 0.9 % (0.0-2.0); EOSINOPHILS % 2.1 % (0.0-5.0); HEMATOCRIT. 42.4 % (36.0-48.0); HEMOGLOBIN. 13.7 g/dL (12.0-16.0); LYMPHOCYTES % 16.4 % (20.0-50.0); MEAN CORPUSCULAR HEMOGLOBIN 27.6 pg (28.0-32.0); MEAN CORPUSCULAR VOLUME 85.4 fL (81.0-99.0); MEAN PLATELET VOLUME 9.7 fl (7.4-10.4); MONOCYTES % 11.1 % (2.0-8.0); NEUTROPHILS % 69.5 % (40.0-76.0); PLATELET 270 x1000/uL (130-400); RED BLOOD CELL COUNT 4.96 mill/uL (4.2-5.4); RED CELL DISTRIBUTION WIDTH 17.3 % (11.6-14.6)
[2020-10-31] MEDS: BUDESONIDE 0.5MG/2ML NEB HHN SCH ×2 (08:20→20:44)
[2020-10-31 08:30] LABS: BG BASE EXCESS 6.6 mmol/L (-2.0-2.0); BG CARBOXYHEMOGLOBIN 0.3 % (0.5-1.5); BG DEOXYHEMOGLOBIN 6.2 % (0.0-5.0); BG FRACTION INSPIRED OXYGEN 70; BG HCO3 ACT 30.5 mmol/L (22.0-26.0); BG METHEMOGLOBIN 0.2 % (0.0-1.5); BG OXYGEN SATURATION 93.8 % (92.0-98.5); BG OXYHEMOGLOBIN 93.3 % (94.0-97.0); BG PO2 67.7 mmHg (75.0-100.0); BG SAMPLE SITE RIGHT RADIAL; BG TOTAL HEMOGLOBIN 14.7 g/dL (12.0-18.0); BG VENT MODE VENT- PRVC
[2020-10-31] MEDS: LOSARTAN POTASSIUM 25 MG TABLET PO SCH (09:00)
[2020-10-31] MEDS: RISPERIDONE 1MG TABLET PO SCH (09:16)
[2020-10-31] MEDS: MIDODRINE HCL 5MG TABLET PO SCH ×3 (09:16→17:45)
[2020-10-31] MEDS: FUROSEMIDE 40MG/4ML VIAL IVP SCH (09:16)
[2020-10-31] MEDS: FENTANYL CITRATE/PF 2,500 MCG in SODIUM CHLORIDE 0.9% 200 ML IV PRN (09:34)
[2020-10-31] MEDS: METHYLPREDNISOLONE SOD SUCC 40 MG/ML VIAL IV SCH ×2 (11:43→17:45)
[2020-10-31] MEDS: DEXTROSE 5% WATER 1,000 ML IV SCH (13:30)
[2020-10-31 15:21] LABS: CREATINE KINASE 28 IU/L (26-192)
[2020-10-31] MEDS: MIDAZOLAM HCL 100 MG in SODIUM CHLORIDE 0.9% 80 ML IV PRN (23:11)
[2020-11-01] VITALS (68 sets, daily range): BP systolic 120–207; BP diastolic 71–129
[2020-11-01] MEDS: IPRATROPIUM/ALBUTEROL 0.5-3(2.5)MG/3ML NEB HHN SCH ×6 (00:19→20:41)
[2020-11-01] MEDS: METHYLPREDNISOLONE SOD SUCC 40 MG/ML VIAL IV SCH ×3 (01:52→17:49)
[2020-11-01 06:10] LABS: HEMATOCRIT. 43.3 % (36.0-48.0); HEMOGLOBIN. 14.1 g/dL (12.0-16.0); MEAN CORPUSCULAR HEMOGLOBIN 27.5 pg (28.0-32.0); MEAN CORPUSCULAR VOLUME 84.5 fL (81.0-99.0); MEAN PLATELET VOLUME 9.5 fl (7.4-10.4); PLATELET 278 x1000/uL (130-400); RED BLOOD CELL COUNT 5.12 mill/uL (4.2-5.4); RED CELL DISTRIBUTION WIDTH 16.8 % (11.6-14.6)
[2020-11-01] MEDS: FUROSEMIDE 40MG/4ML VIAL IVP SCH (08:21)
[2020-11-01] MEDS: DEXTROSE 5% WATER 1,000 ML IV SCH (08:21)
[2020-11-01] MEDS: MIDODRINE HCL 5MG TABLET PO SCH (08:24)
[2020-11-01] MEDS: RISPERIDONE 1MG TABLET PO SCH (08:24)
[2020-11-01] MEDS: BUDESONIDE 0.5MG/2ML NEB HHN SCH ×2 (08:26→20:44)
[2020-11-01] MEDS: SODIUM CHLORIDE 0.45% 1,000 ML IV SCH (09:23)
[2020-11-01] MEDS: ENOXAPARIN 60MG/0.6ML SYR SUBCUT SCH (09:23)
[2020-11-01 10:44] LABS: BG BASE EXCESS 7.8 mmol/L (-2.0-2.0); BG CARBOXYHEMOGLOBIN 0.2 % (0.5-1.5); BG DEOXYHEMOGLOBIN 3.9 % (0.0-5.0); BG FRACTION INSPIRED OXYGEN 50; BG HCO3 ACT 33.6 mmol/L (22.0-26.0); BG METHEMOGLOBIN 0.3 % (0.0-1.5); BG OXYGEN SATURATION 96.1 % (92.0-98.5); BG OXYHEMOGLOBIN 95.6 % (94.0-97.0); BG PCO2 50.9 mmHg (35.0-45.0); BG PH 7.437 (7.350-7.450); BG SAMPLE SITE RIGHT RADIAL; BG TOTAL HEMOGLOBIN 15.2 g/dL (12.0-18.0); BG TOTAL RESPIRATORY RATE 23 b/min; BG VENT MODE VENT - CPAP
[2020-11-01] MEDS: LOSARTAN POTASSIUM 25 MG TABLET PO SCH (10:45)
[2020-11-01] MEDS: HYDRALAZINE 20MG/ML VIAL IV PRN ×2 (11:40→21:02)
[2020-11-01] MEDS: LORAZEPAM 2MG/ML CPJ IV PRN ×2 (12:23→19:45)
[2020-11-01] MEDS: HYDRALAZINE 20MG/ML VIAL IV NR ×2 (12:54→13:56)
[2020-11-01] MEDS ORDERED: HYDRALAZINE 20MG/ML VIAL IV PRN (13:00)
[2020-11-01 13:27] LABS: PLATELET ESTIMATE NORMAL
[2020-11-01] MEDS: CLONIDINE 0.1MG TABLET PO PRN (16:49)
[2020-11-02] VITALS (53 sets, daily range): BP systolic 132–192; BP diastolic 70–107
[2020-11-02] MEDS: IPRATROPIUM/ALBUTEROL 0.5-3(2.5)MG/3ML NEB HHN SCH ×6 (00:28→20:20)
[2020-11-02] MEDS: LORAZEPAM 2MG/ML CPJ IV PRN ×2 (02:09→21:50)
[2020-11-02] MEDS: METHYLPREDNISOLONE SOD SUCC 40 MG/ML VIAL IV SCH ×3 (02:09→21:50)
[2020-11-02] MEDS: HYDRALAZINE 20MG/ML VIAL IV PRN ×3 (02:09→20:29)
[2020-11-02] MEDS: DIPHENHYDRAMINE 50MG/ML VIAL IV PRN (03:32)
[2020-11-02] MEDS: SODIUM CHLORIDE 0.45% 1,000 ML IV SCH (04:56)
[2020-11-02 05:45] LABS: HEMATOCRIT. 47.2 % (36.0-48.0); HEMOGLOBIN. 15.5 g/dL (12.0-16.0); MEAN CORPUSCULAR HEMOGLOBIN 27.9 pg (28.0-32.0); MEAN CORPUSCULAR VOLUME 85.2 fL (81.0-99.0); MEAN PLATELET VOLUME 9.9 fl (7.4-10.4); PLATELET 258 x1000/uL (130-400); RED BLOOD CELL COUNT 5.53 mill/uL (4.2-5.4); RED CELL DISTRIBUTION WIDTH 16.7 % (11.6-14.6)
[2020-11-02 06:02] LABS: PHOSPHORUS 2.6 mg/dL (2.5-4.9)
[2020-11-02] MEDS ORDERED: KCL 20MEQ/100ML PREMIX 100 ML IV ONE (06:15)
[2020-11-02 07:19] LABS: PLATELET ESTIMATE NORMAL
[2020-11-02] MEDS: BUDESONIDE 0.5MG/2ML NEB HHN SCH ×2 (08:26→20:20)
[2020-11-02] MEDS: ENOXAPARIN 60MG/0.6ML SYR SUBCUT SCH ×2 (08:30→20:57)
[2020-11-02] MEDS: FUROSEMIDE 40MG/4ML VIAL IVP SCH (08:30)
[2020-11-02] MEDS: LOSARTAN POTASSIUM 25 MG TABLET PO SCH ×2 (08:30→20:57)
[2020-11-02] MEDS: RISPERIDONE 1MG TABLET PO SCH (08:30)
[2020-11-02 08:47] LABS: BG CARBOXYHEMOGLOBIN 0.7 % (0.5-1.5); BG DEOXYHEMOGLOBIN 1.5 % (0.0-5.0); BG HCO3 ACT 28.2 mmol/L (22.0-26.0); BG METHEMOGLOBIN 0.4 % (0.0-1.5); BG OXYGEN SATURATION 98.5 % (92.0-98.5); BG OXYHEMOGLOBIN 97.4 % (94.0-97.0); BG PCO2 37.1 mmHg (35.0-45.0); BG PH 7.499 (7.350-7.450); BG PO2 118.6 mmHg (75.0-100.0); BG SAMPLE SITE RIGHT RADIAL; BG VENT MODE NASAL CANNULA
[2020-11-02 10:06] LABS: ANTI-NUCLEAR ANTIBODIES DIRECT Negative (Negative)
[2020-11-02] MEDS: AMLODIPINE 5MG TABLET PO SCH (10:45)
[2020-11-02] MEDS: CLONIDINE 0.1MG TABLET PO PRN (12:55)
[2020-11-03] VITALS (23 sets, daily range): BP systolic 125–171; BP diastolic 36–120
[2020-11-03] MEDS: IPRATROPIUM/ALBUTEROL 0.5-3(2.5)MG/3ML NEB HHN SCH ×5 (00:09→20:34)
[2020-11-03] MEDS: SODIUM CHLORIDE 0.45% 1,000 ML IV SCH (00:30)
[2020-11-03] MEDS: HYDRALAZINE 20MG/ML VIAL IV PRN ×3 (02:55→23:03)
[2020-11-03] MEDS: LORAZEPAM 2MG/ML CPJ IV PRN (04:22)
[2020-11-03] MEDS: DIPHENHYDRAMINE 50MG/ML VIAL IV PRN (05:01)
[2020-11-03 05:20] LABS: BASOPHILS % 0.3 % (0.0-2.0); HEMATOCRIT. 49.1 % (36.0-48.0); LYMPHOCYTES % 8.1 % (20.0-50.0); MEAN CORPUSCULAR HEMOGLOBIN 27.4 pg (28.0-32.0); MEAN CORPUSCULAR VOLUME 84.4 fL (81.0-99.0); MEAN PLATELET VOLUME 9.6 fl (7.4-10.4); MONOCYTES % 4.9 % (2.0-8.0); NEUTROPHILS % 86.7 % (40.0-76.0); PLATELET 302 x1000/uL (130-400); RED BLOOD CELL COUNT 5.82 mill/uL (4.2-5.4); RED CELL DISTRIBUTION WIDTH 17.4 % (11.6-14.6)
[2020-11-03 05:29] LABS: CHLORIDE 112 mEq/L (98-107)
[2020-11-03] MEDS: BUDESONIDE 0.5MG/2ML NEB HHN SCH ×2 (07:45→20:34)
[2020-11-03] MEDS: ENOXAPARIN 60MG/0.6ML SYR SUBCUT SCH ×2 (09:19→21:46)
[2020-11-03] MEDS: LOSARTAN POTASSIUM 25 MG TABLET PO SCH ×2 (09:19→21:45)
[2020-11-03] MEDS: RISPERIDONE 1MG TABLET PO SCH (09:20)
[2020-11-03] MEDS: FUROSEMIDE 40MG/4ML VIAL IVP SCH (09:20)
[2020-11-03] MEDS: AMLODIPINE 5MG TABLET PO SCH (09:20)
[2020-11-03] MEDS: METHYLPREDNISOLONE SOD SUCC 40 MG/ML VIAL IV SCH ×2 (10:29→21:45)
[2020-11-03] MEDS ORDERED: DILTIAZEM HCL 5MG/ML 5ML VIAL IV NR (12:15)
[2020-11-03] MEDS: THIAMINE HCL 100MG TABLET PO SCH (12:37)
[2020-11-03] MEDS: DILTIAZEM HCL 30MG TABLET PO SCH ×4 (12:37→21:45)
[2020-11-03] MEDS: FOLIC ACID/VITAMIN B COMP W-C TABLET PO SCH (12:37)
[2020-11-03] MEDS ORDERED: DILTIAZEM HCL 5MG/ML 5ML VIAL IV PRN (13:45)
[2020-11-04] VITALS (16 sets, daily range): BP systolic 113–154; BP diastolic 56–103
[2020-11-04] MEDS: LORAZEPAM 2MG/ML CPJ IV PRN ×4 (00:07→19:12)
[2020-11-04] MEDS: IPRATROPIUM/ALBUTEROL 0.5-3(2.5)MG/3ML NEB HHN SCH ×7 (00:18→21:00)
[2020-11-04] MEDS: CLONIDINE 0.1MG TABLET PO PRN (01:12)
[2020-11-04] MEDS: DILTIAZEM HCL 30MG TABLET PO SCH ×3 (05:38→21:36)
[2020-11-04] MEDS: BUDESONIDE 0.5MG/2ML NEB HHN SCH ×2 (07:54→21:00)
[2020-11-04] MEDS: FUROSEMIDE 40MG/4ML VIAL IVP SCH (08:31)
[2020-11-04] MEDS: THIAMINE HCL 100MG TABLET PO SCH (08:32)
[2020-11-04] MEDS: FOLIC ACID/VITAMIN B COMP W-C TABLET PO SCH (08:32)
[2020-11-04] MEDS: METHYLPREDNISOLONE SOD SUCC 40 MG/ML VIAL IV SCH (08:32)
[2020-11-04] MEDS: LOSARTAN POTASSIUM 25 MG TABLET PO SCH ×2 (08:32→21:36)
[2020-11-04] MEDS: RISPERIDONE 1MG TABLET PO SCH (08:32)
[2020-11-04] MEDS: ENOXAPARIN 60MG/0.6ML SYR SUBCUT SCH ×2 (08:33→21:37)
[2020-11-04 10:12] LABS: BASOPHILS % 0.5 % (0.0-2.0); EOSINOPHILS % 0.1 % (0.0-5.0); HEMATOCRIT. 46.5 % (36.0-48.0); HEMOGLOBIN. 15.2 g/dL (12.0-16.0); LYMPHOCYTES % 10.8 % (20.0-50.0); MEAN CORPUSCULAR HEMOGLOBIN 27.7 pg (28.0-32.0); MEAN CORPUSCULAR VOLUME 84.8 fL (81.0-99.0); MEAN PLATELET VOLUME 9.6 fl (7.4-10.4); MONOCYTES % 7.1 % (2.0-8.0); NEUTROPHILS % 81.5 % (40.0-76.0); PLATELET 265 x1000/uL (130-400); RED BLOOD CELL COUNT 5.49 mill/uL (4.2-5.4); RED CELL DISTRIBUTION WIDTH 17.3 % (11.6-14.6)
[2020-11-04 10:18] LABS: CHLORIDE 109 mEq/L (98-107)
[2020-11-05] VITALS (18 sets, daily range): BP systolic 115–166; BP diastolic 46–131
[2020-11-05] MEDS: IPRATROPIUM/ALBUTEROL 0.5-3(2.5)MG/3ML NEB HHN SCH ×6 (00:24→21:02)
[2020-11-05] MEDS: LORAZEPAM 2MG/ML CPJ IV PRN ×4 (02:11→22:53)
[2020-11-05] MEDS: DILTIAZEM HCL 30MG TABLET PO SCH ×3 (06:07→22:36)
[2020-11-05 06:24] LABS: BASOPHILS % 0.5 % (0.0-2.0); EOSINOPHILS % 0.6 % (0.0-5.0); HEMATOCRIT. 45.5 % (36.0-48.0); HEMOGLOBIN. 14.9 g/dL (12.0-16.0); LYMPHOCYTES % 15.1 % (20.0-50.0); MEAN CORPUSCULAR HEMOGLOBIN 27.7 pg (28.0-32.0); MEAN CORPUSCULAR VOLUME 84.7 fL (81.0-99.0); MONOCYTES % 8.6 % (2.0-8.0); NEUTROPHILS % 75.2 % (40.0-76.0); PLATELET 209 x1000/uL (130-400); RED BLOOD CELL COUNT 5.37 mill/uL (4.2-5.4); RED CELL DISTRIBUTION WIDTH 16.6 % (11.6-14.6)
[2020-11-05 06:54] LABS: CHLORIDE 105 mEq/L (98-107)
[2020-11-05] MEDS: BUDESONIDE 0.5MG/2ML NEB HHN SCH ×2 (07:59→21:02)
[2020-11-05] MEDS: METHYLPREDNISOLONE SOD SUCC 40 MG/ML VIAL IV SCH (08:18)
[2020-11-05] MEDS: FUROSEMIDE 40MG/4ML VIAL IVP SCH (08:18)
[2020-11-05] MEDS: LOSARTAN POTASSIUM 25 MG TABLET PO SCH ×2 (08:18→22:37)
[2020-11-05] MEDS: FOLIC ACID/VITAMIN B COMP W-C TABLET PO SCH (08:18)
[2020-11-05] MEDS: RISPERIDONE 1MG TABLET PO SCH (08:18)
[2020-11-05] MEDS: THIAMINE HCL 100MG TABLET PO SCH (08:18)
[2020-11-05] MEDS: ENOXAPARIN 60MG/0.6ML SYR SUBCUT SCH ×2 (08:20→22:35)
[2020-11-05] MEDS: POTASSIUM CHLORIDE 20MEQ/PACKET PO SCH ×3 (09:45→12:29)
[2020-11-05 10:15] LABS: PHOSPHORUS 2.1 mg/dL (2.5-4.9)
[2020-11-05] MEDS ORDERED: POTASSIUM CHLORIDE 20MEQ TABLET SR PO NR (11:30)
[2020-11-05] MEDS ORDERED: SODIUM PHOS,M-BASIC-D-BASIC 15 MM in DEXT 5% WATER 245 ML IV SCH (14:00)
[2020-11-05] MEDS: RISPERIDONE 0.5MG TABLET PO SCH (16:11)
[2020-11-05] MEDS: DIPHENHYDRAMINE 50MG/ML VIAL IV PRN (22:52)
[2020-11-06] VITALS (14 sets, daily range): BP systolic 91–166; BP diastolic 54–93
[2020-11-06] MEDS: IPRATROPIUM/ALBUTEROL 0.5-3(2.5)MG/3ML NEB HHN SCH ×5 (00:12→16:00)
[2020-11-06] MEDS: DILTIAZEM HCL 30MG TABLET PO SCH ×2 (06:20→14:00)
[2020-11-06 06:31] LABS: BASOPHILS % 0.2 % (0.0-2.0); HEMATOCRIT. 46.6 % (36.0-48.0); LYMPHOCYTES % 18.5 % (20.0-50.0); MEAN CORPUSCULAR HEMOGLOBIN 27.4 pg (28.0-32.0); MEAN CORPUSCULAR VOLUME 84.8 fL (81.0-99.0); MEAN PLATELET VOLUME 10.4 fl (7.4-10.4); NEUTROPHILS % 72.3 % (40.0-76.0); PLATELET 210 x1000/uL (130-400); RED BLOOD CELL COUNT 5.49 mill/uL (4.2-5.4); RED CELL DISTRIBUTION WIDTH 16.8 % (11.6-14.6)
[2020-11-06 07:54] LABS: CHLORIDE 105 mEq/L (98-107)
[2020-11-06 08:05] LABS: PHOSPHORUS 2.2 mg/dL (2.5-4.9)
[2020-11-06] MEDS: FUROSEMIDE 40MG/4ML VIAL IVP SCH (08:20)
[2020-11-06] MEDS: METHYLPREDNISOLONE SOD SUCC 40 MG/ML VIAL IV SCH (08:20)
[2020-11-06] MEDS: RISPERIDONE 0.5MG TABLET PO SCH (08:20)
[2020-11-06] MEDS: THIAMINE HCL 100MG TABLET PO SCH (08:20)
[2020-11-06] MEDS: FOLIC ACID/VITAMIN B COMP W-C TABLET PO SCH (08:20)
[2020-11-06] MEDS: LOSARTAN POTASSIUM 25 MG TABLET PO SCH (08:20)
[2020-11-06] MEDS: BUDESONIDE 0.5MG/2ML NEB HHN SCH (08:21)
[2020-11-06] MEDS: ENOXAPARIN 60MG/0.6ML SYR SUBCUT SCH (08:21)
[2020-11-06] MEDS ORDERED: POTASSIUM PHOS,M-BASIC-D-BASIC 20 MMOL in DEXT 5% WATER 243.3333 ML IV NR (13:00)
[2020-11-06] MEDS ORDERED: ENOXAPARIN 60MG/0.6ML SYR SUBCUT SCH (21:00)
[2020-11-07 08:10] LABS: A/G RATIO 0.8 (0.7-1.7); ALBUMIN 2.6 g/dL (2.9-4.4); ALPHA-1-GLOBULIN 0.2 g/dL (0.0-0.4); GAMMA GLOBULINS 1.2 g/dL (0.4-1.8); GLOBULIN TOTAL 3.4 g/dL (2.2-3.9); M-SPIKE Not Observed g/dL (Not Observed)
[2020-11-07] MEDS ORDERED: METHYLPREDNISOLONE SOD SUCC 40 MG/ML VIAL IV SCH (09:00)
[2020-11-07] MEDS ORDERED: RISPERIDONE 0.5MG TABLET PO SCH (09:00)
== END 2020-11-06 17:50 | disposition left against medical advice (07) | DRG 816 ==
LOC: ER 07:43 → EDBEDREQSVC 09:33 → MICUSO 10:46 → EDBEDREQTM 10:49 → EDBEDREQ 10:49 → ENRESERV 12:34 → CVICU 23:30 → 5EST 11-03 08:14
PROVIDERS: ADMIT Internal Medicine; ATTEND Internal Medicine
PROC: 5A1955Z Respiratory Ventilation, Greater than 96 Consecutive Hours (ICD-10-PCS; principal; 2020-10-22)
PROC: 06HY33Z Insertion of Infusion Device into Lower Vein, Percutaneous Approach (ICD-10-PCS; 2020-10-22)
PROC: 5A09357 Assistance with Respiratory Ventilation, Less than 24 Consecutive Hours, Continuous Positive Airway Pressure (ICD-10-PCS; 2020-10-22)
PROC: 0BH17EZ Insertion of Endotracheal Airway into Trachea, Via Natural or Artificial Opening (ICD-10-PCS; 2020-10-22)
PROC: 05HY33Z Insertion of Infusion Device into Upper Vein, Percutaneous Approach (ICD-10-PCS; 2020-10-30)
DX: T40.5X1A Poisoning by cocaine, accidental (unintentional), initial encounter (principal); N17.0 Acute kidney failure with tubular necrosis; I21.4 Non-ST elevation (NSTEMI) myocardial infarction; J69.0 Pneumonitis due to inhalation of food and vomit; J96.02 Acute respiratory failure with hypercapnia; J96.01 Acute respiratory failure with hypoxia; I50.23 Acute on chronic systolic (congestive) heart failure; I27.21 Secondary pulmonary arterial hypertension; E83.52 Hypercalcemia; L89.816 Pressure-induced deep tissue damage of head; E44.0 Moderate protein-calorie malnutrition; E87.0 Hyperosmolality and hypernatremia; E87.2 Acidosis; J68.0 Bronchitis and pneumonitis due to chemicals, gases, fumes and vapors; E78.5 Hyperlipidemia, unspecified; F14.10 Cocaine abuse, uncomplicated; F17.210 Nicotine dependence, cigarettes, uncomplicated; I25.10 Atherosclerotic heart disease of native coronary artery without angina pectoris; I25.5 Ischemic cardiomyopathy; I27.81 Cor pulmonale (chronic); I31.3 Pericardial effusion (noninflammatory); E86.9 Volume depletion, unspecified; I36.1 Nonrheumatic tricuspid (valve) insufficiency; I34.0 Nonrheumatic mitral (valve) insufficiency; I13.0 Hypertensive heart and chronic kidney disease with heart failure and stage 1 through stage 4 chronic kidney disease, or unspecified chronic kidney disease; Z20.822 Contact with and (suspected) exposure to COVID-19; N18.9 Chronic kidney disease, unspecified; Z53.29 Procedure and treatment not carried out because of patient's decision for other reasons; I25.2 Old myocardial infarction; Z85.3 Personal history of malignant neoplasm of breast; Z87.01 Personal history of pneumonia (recurrent); Z90.12 Acquired absence of left breast and nipple; Z92.21 Personal history of antineoplastic chemotherapy; Z88.8 Allergy status to other drugs, medicaments and biological substances; Z91.018 Allergy to other foods; Z79.82 Long term (current) use of aspirin; Z79.891 Long term (current) use of opiate analgesic; Z79.899 Other long term (current) drug therapy; Y92.89 Other specified places as the place of occurrence of the external cause
CPT/HCPCS: 31500; 36415; 36600; 71045; 71275; 76770; 76937; 80048; 80053; 80305; 80320; 81003; 82330; 82375; 82550; 82553; 82805; 82962; 83605; 83735; 83880; 83970; 84100; 84145; 84155; 84165; 84484; 85025; 85379; 86038; 86160; 87070; 92610; 93005; 93970; 94002; 94003; 94640; 94660; 97162; 99291; C1725; J0330; J0360; J0456; J0696; J1200; J1650; J1940; J2060; J2250; J2370; J2704; J2920; J2930; J3010; J3370; J3480; J3490; J7030; J7050; J7060; J7070; J7608; J7626; Q9967; U0003; U0005; A4315; G0480

== ENCOUNTER 2021-01-29 10:06 | Inpatient (IN) | payer MEDICAID ==
[~2021-01-29] VITALS: Ht 180.3 cm; Wt 62.2 kg
[2021-01-29] MEDS ORDERED: ALBUTEROL (0.083%) 2.5MG/3ML NEB HHN STA (10:30)
[2021-01-29] MEDS ORDERED: IPRATROPIUM BROMIDE (0.02%) 0.5MG/2.5ML NEB HHN STA (10:30)
[2021-01-29] MEDS ORDERED: MORPHINE SULFATE 4 MG/ML CPJ (NOT FOR IM USE) IV STA (10:30)
[2021-01-29] MEDS ORDERED: FUROSEMIDE 40MG/4ML VIAL IVP ONE (10:30)
[2021-01-29] MEDS ORDERED: ONDANSETRON HCL 4MG/2ML INJ IV STA (10:30)
[2021-01-29 11:25] LABS: BASOPHILS % 0.5 % (0.0-2.0); EOSINOPHILS % 0.4 % (0.0-5.0); HEMATOCRIT. 49.1 % (36.0-48.0); HEMOGLOBIN. 15.7 g/dL (12.0-16.0); LYMPHOCYTES % 11.3 % (20.0-50.0); MEAN PLATELET VOLUME 8.5 fl (7.4-10.4); MONOCYTES % 6.4 % (2.0-8.0); NEUTROPHILS % 81.4 % (40.0-76.0); PLATELET 211 x1000/uL (130-400); RED CELL DISTRIBUTION WIDTH 17.8 % (11.6-14.6)
[2021-01-29] MEDS ORDERED: AZITHROMYCIN 500 MG in DEXT 5% WATER 250 ML IV STA (11:36)
[2021-01-29] MEDS ORDERED: CEFTRIAXONE 1 G PREMIX 50 ML IV ONE (11:45)
[2021-01-29 12:35] LABS: CHLORIDE 114 mEq/L (98-107)
[2021-01-29] MEDS ORDERED: ASPIRIN 81MG TABLET PO ONE (13:15)
[2021-01-29 14:00] LABS: CLARITY URINE CLEAR (CLEAR); COLOR URINE YELLOW (YELLOW); KETONES URINE NEGATIVE (NEGATIVE); LEUKOCYTE ESTERASE URINE NEGATIVE (NEGATIVE); NITRITE URINE NEGATIVE (NEGATIVE); OCCULT BLOOD URINE NEGATIVE (NEGATIVE); PROTEIN URINE 1+ (NEGATIVE); SPECIFIC GRAVITY URINE 1.008 (1.005-1.030); UROBILINOGEN URINE 0.2 E.U./dL (0.2-1.0)
[2021-01-29 14:29] LABS: *AMPHETAMINES SCREEN URINE NEGATIVE (NEGATIVE); *BARBITURATES SCREEN URINE NEGATIVE (NEGATIVE); *BENZODIAZEPINES SCREEN URINE NEGATIVE (NEGATIVE); *COCAINE SCREEN URINE PRESUMTIVE POSITIVE (NEGATIVE); METHADONE URINE SCREEN NEGATIVE (NEGATIVE); OPIATES URINE SCREEN PRESUMTIVE POSITIVE (NEGATIVE); PHENCYCLIDINE URINE SCREEN NEGATIVE (NEGATIVE)
[2021-01-29 14:30] LABS: CANNABINOID URINE SCREEN NEGATIVE (NEGATIVE)
[2021-01-29] MEDS ORDERED: MAGNESIUM/ALUMINUM HYDROXIDE/SIMETHICONE 30ML UDC PO PRN (14:45)
[2021-01-29] MEDS ORDERED: ACETAMINOPHEN 325MG TABLET PO PRN (14:45)
[2021-01-29] MEDS ORDERED: IPRATROPIUM/ALBUTEROL 0.5-3(2.5)MG/3ML NEB HHN PRN (14:45)
[2021-01-29] MEDS ORDERED: ONDANSETRON HCL 4MG/2ML INJ IV PRN (14:45)
[2021-01-29] MEDS ORDERED: GUAIFENESIN 200MG/10ML SUGAR FREE UDC PO PRN (14:45)
[2021-01-29] MEDS ORDERED: LORAZEPAM 2MG/ML CPJ IV PRN (14:45)
[2021-01-29] MEDS ORDERED: NALOXONE HCL 1 MG/ML 2ML VIAL IV ONE (15:45)
[2021-01-29 16:15] LABS: BG BASE EXCESS -3.9 mmol/L (-2.0-2.0); BG CARBOXYHEMOGLOBIN 5.7 % (0.5-1.5); BG DEOXYHEMOGLOBIN 2.7 % (0.0-5.0); BG FRACTION INSPIRED OXYGEN 100; BG HCO3 ACT 23.7 mmol/L (22.0-26.0); BG METHEMOGLOBIN 0.3 % (0.0-1.5); BG OXYGEN SATURATION 97.1 % (92.0-98.5); BG OXYHEMOGLOBIN 91.3 % (94.0-97.0); BG PCO2 53.1 mmHg (35.0-45.0); BG PH 7.267 (7.350-7.450); BG PO2 103.2 mmHg (75.0-100.0); BG SAMPLE SITE RIGHT BRACHIAL; BG TOTAL HEMOGLOBIN 14.7 g/dL (12.0-18.0); BG VENT MODE MASK - NRB
[2021-01-29] MEDS ORDERED: SODIUM POLYSTYRENE SULFONATE 15 G/60 ML BOT PO NR (16:15)
[2021-01-29] MEDS: ENOXAPARIN 40MG/0.4ML SYR SUBCUT SCH (18:26)
[2021-01-29] MEDS: METHYLPREDNISOLONE SOD SUCC 40 MG/ML VIAL IV SCH (18:26)
[2021-01-29 20:00] VITALS: BP_SYST 164; BP_SYST 166; BP_DIAS 100; BP_DIAS 98
[2021-01-29 21:36] VITALS: BP 166/98
[2021-01-29] MEDS: FAMOTIDINE 20MG TABLET PO SCH (21:36)
[2021-01-29] MEDS: SODIUM CHLORIDE 0.9% INJ 3ML FLUSH IVF SCH (21:36)
[2021-01-30] VITALS: BP 161/102
[2021-01-30 00:36] LABS: CREATINE KINASE MB FRACTION 8.3 ng/mL (0.5-3.6)
[2021-01-30] MEDS: METHYLPREDNISOLONE SOD SUCC 40 MG/ML VIAL IV SCH ×3 (01:56→17:15)
[2021-01-30 04:00] VITALS: BP 147/85
[2021-01-30] MEDS: SODIUM CHLORIDE 0.9% INJ 3ML FLUSH IVF SCH ×3 (05:13→21:02)
[2021-01-30 08:00] VITALS: BP 169/100
[2021-01-30] MEDS: CLONIDINE 0.1MG TABLET PO PRN (08:49)
[2021-01-30] MEDS: FUROSEMIDE 40MG/4ML VIAL IVP SCH (08:49)
[2021-01-30] MEDS: DILTIAZEM HCL 30MG TABLET PO SCH ×4 (10:08→20:54)
[2021-01-30] MEDS ORDERED: NALOXONE HCL 0.4MG/ML VIAL IV PRN (11:00)
[2021-01-30] MEDS: HYDROCODONE/ACETAMINOPHEN 5/325MG TABLET PO PRN ×2 (11:07→20:53)
[2021-01-30 11:14] LABS: BASOPHILS % 0.3 % (0.0-2.0); EOSINOPHILS % 0.2 % (0.0-5.0); HEMATOCRIT. 44.2 % (36.0-48.0); HEMOGLOBIN. 13.6 g/dL (12.0-16.0); LYMPHOCYTES % 9.8 % (20.0-50.0); MEAN CORPUSCULAR HEMOGLOBIN 28.3 pg (28.0-32.0); MEAN PLATELET VOLUME 8.7 fl (7.4-10.4); MONOCYTES % 10.9 % (2.0-8.0); NEUTROPHILS % 78.8 % (40.0-76.0); PLATELET 189 x1000/uL (130-400); RED CELL DISTRIBUTION WIDTH 17.3 % (11.6-14.6)
[2021-01-30 12:00] VITALS: BP 154/97
[2021-01-30 12:05] LABS: CHLORIDE 111 mEq/L (98-107)
[2021-01-30] MEDS ORDERED: DIATR MEGLU/DIATRIZOATE SOLN 30ML PO SCH (12:15)
[2021-01-30 12:21] LABS: CREATINE KINASE 101 IU/L (26-192)
[2021-01-30 12:25] LABS: CREATINE KINASE MB FRACTION 6.1 ng/mL (0.5-3.6)
[2021-01-30] MEDS: LOSARTAN POTASSIUM 25 MG TABLET PO SCH (14:20)
[2021-01-30 16:00] VITALS: BP 149/90
[2021-01-30] MEDS: ENOXAPARIN 40MG/0.4ML SYR SUBCUT SCH (17:16)
[2021-01-30 20:00] VITALS: BP 160/92
[2021-01-30] MEDS: FAMOTIDINE 20MG TABLET PO SCH (20:53)
[2021-01-30] MEDS: DOCUSATE SODIUM 100MG CAPSULE PO PRN (20:54)
[2021-01-30] MEDS: SILDENAFIL CITRATE 20MG TABLET PO SCH (20:54)
[2021-01-30] MEDS ORDERED: IOHEXOL-300 100 ML BOTTLE ONE (23:30)
[2021-01-30] MEDS: HYDRALAZINE 20MG/ML VIAL IV PRN (23:59)
[2021-01-31] VITALS: BP 175/103
[2021-01-31] MEDS: METHYLPREDNISOLONE SOD SUCC 40 MG/ML VIAL IV SCH ×2 (00:06→09:07)
[2021-01-31] MEDS: IPRATROPIUM/ALBUTEROL 0.5-3(2.5)MG/3ML NEB HHN SCH ×5 (01:57→20:10)
[2021-01-31 04:00] VITALS: BP 176/100
[2021-01-31] MEDS: CLONIDINE 0.1MG TABLET PO PRN (04:37)
[2021-01-31] MEDS: HYDROCODONE/ACETAMINOPHEN 5/325MG TABLET PO PRN ×3 (04:37→20:41)
[2021-01-31] MEDS: SODIUM CHLORIDE 0.9% INJ 3ML FLUSH IVF SCH ×3 (05:55→22:04)
[2021-01-31] MEDS: SILDENAFIL CITRATE 20MG TABLET PO SCH ×3 (05:55→22:09)
[2021-01-31] MEDS: DILTIAZEM HCL 30MG TABLET PO SCH ×2 (05:55→13:11)
[2021-01-31 08:00] VITALS: BP 167/92
[2021-01-31] MEDS: FUROSEMIDE 40MG/4ML VIAL IVP SCH (09:07)
[2021-01-31] MEDS: LOSARTAN POTASSIUM 25 MG TABLET PO SCH (09:07)
[2021-01-31] MEDS: DOCUSATE SODIUM 100MG CAPSULE PO PRN (11:32)
[2021-01-31 12:00] VITALS: BP 201/127
[2021-01-31] MEDS: BUPROPION HCL 100MG SR TABLET PO SCH (13:11)
[2021-01-31] MEDS: GUAIFENESIN 600MG ER TABLET PO SCH ×2 (13:11→20:34)
[2021-01-31] MEDS: HYDRALAZINE 20MG/ML VIAL IV PRN (13:14)
[2021-01-31 14:29] LABS: INR 1.2; PARTIAL THROMBOPLASTIN TIME 23.1 sec (23.4-31.0); PROTHROMBIN TIME 12.4 sec (9.6-11.0)
[2021-01-31 16:00] VITALS: BP 153/103
[2021-01-31] MEDS: ENOXAPARIN 40MG/0.4ML SYR SUBCUT SCH (17:14)
[2021-01-31] MEDS: DILTIAZEM HCL 60MG TABLET PO SCH (17:15)
[2021-01-31] MEDS: PREDNISONE 20MG TABLET PO SCH (17:15)
[2021-01-31] MEDS: FAMOTIDINE 20MG TABLET PO SCH (20:34)
[2021-01-31] MEDS: QUETIAPINE FUMARATE 50MG TABLET PO SCH (20:34)
[2021-01-31] MEDS: LOSARTAN POTASSIUM 50 MG TABLET PO SCH (20:34)
[2021-01-31 20:41] VITALS: BP 172/87
[2021-01-31] MEDS ORDERED: LOSARTAN POTASSIUM 25 MG TABLET PO SCH (21:00)
[2021-02-01] MEDS: PREDNISONE 20MG TABLET PO SCH ×2 (06:52→17:18)
[2021-02-01] MEDS: SILDENAFIL CITRATE 20MG TABLET PO SCH ×3 (06:52→21:11)
[2021-02-01] MEDS: DILTIAZEM HCL 60MG TABLET PO SCH (06:52)
[2021-02-01] MEDS: SODIUM CHLORIDE 0.9% INJ 3ML FLUSH IVF SCH ×3 (06:52→21:12)
[2021-02-01 08:00] VITALS: BP 171/85
[2021-02-01] MEDS ORDERED: LIDOCAINE HCL 1% 20ML VIAL (Pyxis) INJ ONE (08:24)
[2021-02-01] MEDS ORDERED: SODIUM BICARBONATE 4% (2.4MEQ) 5ML VIAL IV ONE (08:24)
[2021-02-01] MEDS: LOSARTAN POTASSIUM 50 MG TABLET PO SCH ×2 (09:46→21:12)
[2021-02-01] MEDS: BUPROPION HCL 100MG SR TABLET PO SCH (09:46)
[2021-02-01] MEDS: FUROSEMIDE 40MG/4ML VIAL IVP SCH ×2 (09:46→17:18)
[2021-02-01] MEDS: GUAIFENESIN 600MG ER TABLET PO SCH ×2 (09:46→21:12)
[2021-02-01] MEDS: HYDRALAZINE 20MG/ML VIAL IV PRN (09:47)
[2021-02-01] MEDS ORDERED: METOLAZONE 2.5MG TABLET PO NR (11:00)
[2021-02-01 12:00] VITALS: BP 218/122
[2021-02-01] MEDS: DILTIAZEM HCL 90MG TABLET PO SCH ×2 (13:04→17:18)
[2021-02-01] MEDS: CLONIDINE 0.1MG TABLET PO PRN (13:04)
[2021-02-01] MEDS ORDERED: HYDRALAZINE 20MG/ML VIAL IV NR (13:45)
[2021-02-01] MEDS: HYDRALAZINE HCL 50MG TABLET PO SCH ×2 (13:53→21:12)
[2021-02-01] MEDS: IPRATROPIUM/ALBUTEROL 0.5-3(2.5)MG/3ML NEB HHN SCH ×2 (14:59→19:20)
[2021-02-01 16:00] VITALS: BP 149/78
[2021-02-01] MEDS: ENOXAPARIN 40MG/0.4ML SYR SUBCUT SCH ×2 (16:45→17:17)
[2021-02-01 20:00] VITALS: BP 152/75
[2021-02-01] MEDS: FAMOTIDINE 20MG TABLET PO SCH (21:11)
[2021-02-01] MEDS: QUETIAPINE FUMARATE 50MG TABLET PO SCH (21:11)
[2021-02-01] MEDS: ACETYLCYSTEINE 100MG/ML 10% VIAL 4ML INH SCH (22:25)
[2021-02-02] MEDS: IPRATROPIUM/ALBUTEROL 0.5-3(2.5)MG/3ML NEB HHN SCH ×4 (00:19→21:45)
[2021-02-02 00:32] VITALS: BP 148/85
[2021-02-02] MEDS: DILTIAZEM HCL 90MG TABLET PO SCH ×4 (00:42→17:26)
[2021-02-02 03:42] VITALS: BP 137/66
[2021-02-02] MEDS: FUROSEMIDE 40MG/4ML VIAL IVP SCH ×2 (06:47→17:26)
[2021-02-02] MEDS: SODIUM CHLORIDE 0.9% INJ 3ML FLUSH IVF SCH ×2 (06:48→20:17)
[2021-02-02] MEDS: PREDNISONE 20MG TABLET PO SCH ×2 (06:48→17:26)
[2021-02-02] MEDS: HYDRALAZINE HCL 50MG TABLET PO SCH ×3 (06:48→20:16)
[2021-02-02] MEDS: SILDENAFIL CITRATE 20MG TABLET PO SCH ×3 (06:48→20:17)
[2021-02-02] MEDS: BUPROPION HCL 100MG SR TABLET PO SCH (09:35)
[2021-02-02] MEDS: LOSARTAN POTASSIUM 50 MG TABLET PO SCH ×2 (09:35→20:16)
[2021-02-02] MEDS: GUAIFENESIN 600MG ER TABLET PO SCH ×2 (09:35→20:17)
[2021-02-02 10:32] LABS: HEMOGLOBIN. 16.3 g/dL (12.0-16.0); MEAN CORPUSCULAR HEMOGLOBIN 28.4 pg (28.0-32.0); MEAN CORPUSCULAR VOLUME 87.3 fL (81.0-99.0); MEAN PLATELET VOLUME 8.8 fl (7.4-10.4); PLATELET 239 x1000/uL (130-400); RED BLOOD CELL COUNT 5.73 mill/uL (4.2-5.4)
[2021-02-02] MEDS ORDERED: METOLAZONE 2.5MG TABLET PO NR (12:30)
[2021-02-02 13:03] LABS: PLATELET ESTIMATE NORMAL
[2021-02-02] MEDS: ACETYLCYSTEINE 100MG/ML 10% VIAL 4ML INH SCH ×2 (13:04→22:00)
[2021-02-02] MEDS ORDERED: MAGNESIUM HYDROXIDE 400MG/5ML 30ML UDC PO PRN (15:30)
[2021-02-02 16:00] VITALS: BP 159/85
[2021-02-02] MEDS: ENOXAPARIN 40MG/0.4ML SYR SUBCUT SCH (17:27)
[2021-02-02 20:00] VITALS: BP 161/83
[2021-02-02] MEDS: QUETIAPINE FUMARATE 50MG TABLET PO SCH (20:16)
[2021-02-02] MEDS: FAMOTIDINE 20MG TABLET PO SCH (20:17)
[2021-02-03] VITALS: BP 169/71
[2021-02-03] MEDS: IPRATROPIUM/ALBUTEROL 0.5-3(2.5)MG/3ML NEB HHN SCH ×3 (00:15→15:21)
[2021-02-03] MEDS: DILTIAZEM HCL 90MG TABLET PO SCH ×4 (00:56→18:08)
[2021-02-03] MEDS: HYDRALAZINE 20MG/ML VIAL IV PRN (01:03)
[2021-02-03 04:00] VITALS: BP 114/66
[2021-02-03] MEDS: FUROSEMIDE 40MG/4ML VIAL IVP SCH ×2 (06:17→18:08)
[2021-02-03] MEDS: SODIUM CHLORIDE 0.9% INJ 3ML FLUSH IVF SCH ×3 (06:17→21:52)
[2021-02-03] MEDS: SILDENAFIL CITRATE 20MG TABLET PO SCH ×3 (06:18→20:56)
[2021-02-03] MEDS: HYDRALAZINE HCL 50MG TABLET PO SCH ×3 (06:18→20:56)
[2021-02-03] MEDS: ACETYLCYSTEINE 100MG/ML 10% VIAL 4ML INH SCH ×3 (09:04→22:00)
[2021-02-03] MEDS: PREDNISONE 20MG TABLET PO SCH (09:29)
[2021-02-03] MEDS: LOSARTAN POTASSIUM 50 MG TABLET PO SCH ×2 (09:29→20:59)
[2021-02-03] MEDS: GUAIFENESIN 600MG ER TABLET PO SCH ×2 (09:29→20:56)
[2021-02-03] MEDS: BUPROPION HCL 100MG SR TABLET PO SCH (09:29)
[2021-02-03 10:42] LABS: BASOPHILS % 0.1 % (0.0-2.0); HEMOGLOBIN. 15.8 g/dL (12.0-16.0); LYMPHOCYTES % 7.3 % (20.0-50.0); MEAN CORPUSCULAR HEMOGLOBIN 28.5 pg (28.0-32.0); MEAN CORPUSCULAR VOLUME 86.7 fL (81.0-99.0); MEAN PLATELET VOLUME 8.1 fl (7.4-10.4); MONOCYTES % 9.3 % (2.0-8.0); NEUTROPHILS % 83.3 % (40.0-76.0); PLATELET 227 x1000/uL (130-400); RED BLOOD CELL COUNT 5.53 mill/uL (4.2-5.4); RED CELL DISTRIBUTION WIDTH 16.7 % (11.6-14.6)
[2021-02-03 17:52] VITALS: BP 139/72
[2021-02-03] MEDS: ENOXAPARIN 40MG/0.4ML SYR SUBCUT SCH (18:08)
[2021-02-03 20:00] VITALS: BP 166/83
[2021-02-03] MEDS: FAMOTIDINE 20MG TABLET PO SCH (20:56)
[2021-02-03] MEDS: QUETIAPINE FUMARATE 50MG TABLET PO SCH (20:56)
[2021-02-03] MEDS: CLONIDINE 0.1MG TABLET PO PRN (20:56)
[2021-02-04] VITALS (7 sets, daily range): BP systolic 112–151; BP diastolic 56–77
[2021-02-04] MEDS: IPRATROPIUM/ALBUTEROL 0.5-3(2.5)MG/3ML NEB HHN SCH ×4 (00:56→21:38)
[2021-02-04] MEDS: DILTIAZEM HCL 90MG TABLET PO SCH ×4 (01:13→18:07)
[2021-02-04] MEDS: SODIUM CHLORIDE 0.9% INJ 3ML FLUSH IVF SCH ×3 (05:09→21:43)
[2021-02-04] MEDS: SILDENAFIL CITRATE 20MG TABLET PO SCH ×3 (05:55→21:35)
[2021-02-04] MEDS: HYDRALAZINE HCL 50MG TABLET PO SCH ×3 (05:55→21:35)
[2021-02-04] MEDS: FUROSEMIDE 40MG/4ML VIAL IVP SCH ×2 (05:56→18:07)
[2021-02-04] MEDS: ACETYLCYSTEINE 100MG/ML 10% VIAL 4ML INH SCH ×2 (08:25→12:41)
[2021-02-04] MEDS: GUAIFENESIN 600MG ER TABLET PO SCH ×2 (09:50→20:35)
[2021-02-04] MEDS: LOSARTAN POTASSIUM 50 MG TABLET PO SCH ×2 (09:50→20:36)
[2021-02-04] MEDS: HYDROCODONE/ACETAMINOPHEN 5/325MG TABLET PO PRN (09:51)
[2021-02-04] MEDS: BUPROPION HCL 100MG SR TABLET PO SCH (09:52)
[2021-02-04] MEDS: PREDNISONE 20MG TABLET PO SCH (09:52)
[2021-02-04 14:29] LABS: BG CARBOXYHEMOGLOBIN 0.8 % (0.5-1.5); BG DEOXYHEMOGLOBIN 13.4 % (0.0-5.0); BG FRACTION INSPIRED OXYGEN 21; BG HCO3 ACT 33.2 mmol/L (22.0-26.0); BG METHEMOGLOBIN 0.2 % (0.0-1.5); BG OXYGEN SATURATION 86.5 % (92.0-98.5); BG OXYHEMOGLOBIN 85.6 % (94.0-97.0); BG PCO2 47.7 mmHg (35.0-45.0); BG PO2 51.9 mmHg (75.0-100.0); BG SAMPLE SITE RIGHT RADIAL; BG TOTAL HEMOGLOBIN 15.1 g/dL (12.0-18.0); BG VENT MODE ROOM AIR
[2021-02-04] MEDS: ENOXAPARIN 40MG/0.4ML SYR SUBCUT SCH (18:07)
[2021-02-04] MEDS: QUETIAPINE FUMARATE 50MG TABLET PO SCH (20:36)
[2021-02-04] MEDS: FAMOTIDINE 20MG TABLET PO SCH (20:36)
[2021-02-04] MEDS: DOCUSATE SODIUM 100MG CAPSULE PO PRN (21:37)
[2021-02-04] MEDS ORDERED: DOCUSATE SODIUM SUGAR FREE 100MG/10ML UDC PO PRN (21:45)
[2021-02-05] VITALS: BP 129/54
[2021-02-05] MEDS: IPRATROPIUM/ALBUTEROL 0.5-3(2.5)MG/3ML NEB HHN SCH ×3 (01:43→13:57)
[2021-02-05] MEDS: ACETYLCYSTEINE 100MG/ML 10% VIAL 4ML INH SCH ×3 (01:43→13:57)
[2021-02-05 04:00] VITALS: BP 164/72
[2021-02-05] MEDS: SODIUM CHLORIDE 0.9% INJ 3ML FLUSH IVF SCH ×2 (06:28→21:04)
[2021-02-05] MEDS: HYDRALAZINE HCL 50MG TABLET PO SCH ×3 (06:28→21:03)
[2021-02-05] MEDS: FUROSEMIDE 40MG/4ML VIAL IVP SCH ×2 (06:28→16:27)
[2021-02-05] MEDS: SILDENAFIL CITRATE 20MG TABLET PO SCH ×3 (06:28→21:03)
[2021-02-05] MEDS: DILTIAZEM HCL 90MG TABLET PO SCH ×4 (06:31→18:30)
[2021-02-05 08:00] VITALS: BP 152/104
[2021-02-05] MEDS: GUAIFENESIN 600MG ER TABLET PO SCH ×2 (08:48→21:03)
[2021-02-05] MEDS: PREDNISONE 20MG TABLET PO SCH (08:49)
[2021-02-05] MEDS: CLONIDINE 0.1MG TABLET PO PRN (08:49)
[2021-02-05] MEDS: BUPROPION HCL 100MG SR TABLET PO SCH (08:49)
[2021-02-05] MEDS: LOSARTAN POTASSIUM 50 MG TABLET PO SCH ×2 (08:49→21:03)
[2021-02-05] MEDS: DIPHENHYDRAMINE 50MG/ML VIAL IV PRN ×2 (09:03→16:28)
[2021-02-05 11:39] LABS: HEMATOCRIT. 42.2 % (36.0-48.0); HEMOGLOBIN. 13.8 g/dL (12.0-16.0); MEAN CORPUSCULAR HEMOGLOBIN 28.2 pg (28.0-32.0); MEAN CORPUSCULAR VOLUME 86.3 fL (81.0-99.0); MEAN PLATELET VOLUME 8.4 fl (7.4-10.4); PLATELET 158 x1000/uL (130-400); RED BLOOD CELL COUNT 4.89 mill/uL (4.2-5.4); RED CELL DISTRIBUTION WIDTH 16.2 % (11.6-14.6)
[2021-02-05 12:00] VITALS: BP 143/75
[2021-02-05 14:19] LABS: PLATELET ESTIMATE NORMAL
[2021-02-05 16:00] VITALS: BP 158/90
[2021-02-05] MEDS: HYDROCODONE/ACETAMINOPHEN 5/325MG TABLET PO PRN (16:04)
[2021-02-05] MEDS: ENOXAPARIN 40MG/0.4ML SYR SUBCUT SCH (16:05)
[2021-02-05 20:00] VITALS: BP 143/63
[2021-02-05] MEDS: FAMOTIDINE 20MG TABLET PO SCH (21:03)
[2021-02-05] MEDS: QUETIAPINE FUMARATE 50MG TABLET PO SCH (21:03)
[2021-02-06] VITALS: BP 131/64
[2021-02-06 04:00] VITALS: BP 91/60
[2021-02-06] MEDS: SODIUM CHLORIDE 0.9% INJ 3ML FLUSH IVF SCH ×2 (06:36→13:23)
[2021-02-06] MEDS: FUROSEMIDE 40MG/4ML VIAL IVP SCH (06:46)
[2021-02-06] MEDS: HYDRALAZINE HCL 50MG TABLET PO SCH ×2 (06:47→13:23)
[2021-02-06] MEDS: SILDENAFIL CITRATE 20MG TABLET PO SCH ×2 (06:47→13:23)
[2021-02-06] MEDS: HYDROCODONE/ACETAMINOPHEN 5/325MG TABLET PO PRN (06:48)
[2021-02-06] MEDS: DILTIAZEM HCL 90MG TABLET PO SCH ×3 (06:54→13:23)
[2021-02-06 08:00] VITALS: BP 118/53
[2021-02-06] MEDS: LOSARTAN POTASSIUM 50 MG TABLET PO SCH (08:53)
[2021-02-06] MEDS: PREDNISONE 20MG TABLET PO SCH (08:53)
[2021-02-06] MEDS: GUAIFENESIN 600MG ER TABLET PO SCH (08:53)
[2021-02-06] MEDS: BUPROPION HCL 100MG SR TABLET PO SCH (08:54)
[2021-02-06] MEDS: IPRATROPIUM/ALBUTEROL 0.5-3(2.5)MG/3ML NEB HHN SCH ×2 (10:27→13:54)
[2021-02-06] MEDS: ACETYLCYSTEINE 100MG/ML 10% VIAL 4ML INH SCH (10:27)
[2021-02-06 12:00] VITALS: BP 165/88
[2021-02-07] MEDS ORDERED: FUROSEMIDE 40MG/4ML VIAL IVP SCH (09:00)
== END 2021-02-06 14:28 | disposition left against medical advice (07) | DRG 190 ==
LOC: ER 10:13 → 7EST 13:35 → EDBEDREQSVC 13:51 → EDBEDREQ 13:51 → ENRESERV 19:22
PROVIDERS: ADMIT Internal Medicine; ATTEND Internal Medicine
PROC: 05HY33Z Insertion of Infusion Device into Upper Vein, Percutaneous Approach (ICD-10-PCS; principal; 2021-01-30)
PROC: B54MZZA Ultrasonography of Right Upper Extremity Veins, Guidance (ICD-10-PCS; 2021-01-30)
PROC: 0W9G3ZZ Drainage of Peritoneal Cavity, Percutaneous Approach (ICD-10-PCS; 2021-02-01)
DX: I21.4 Non-ST elevation (NSTEMI) myocardial infarction (principal); J96.01 Acute respiratory failure with hypoxia; I50.43 Acute on chronic combined systolic (congestive) and diastolic (congestive) heart failure; E87.2 Acidosis; R18.8 Other ascites; I27.20 Pulmonary hypertension, unspecified; E44.0 Moderate protein-calorie malnutrition; J68.0 Bronchitis and pneumonitis due to chemicals, gases, fumes and vapors; I27.81 Cor pulmonale (chronic); I31.3 Pericardial effusion (noninflammatory); I25.10 Atherosclerotic heart disease of native coronary artery without angina pectoris; F17.210 Nicotine dependence, cigarettes, uncomplicated; I42.9 Cardiomyopathy, unspecified; F14.10 Cocaine abuse, uncomplicated; E78.5 Hyperlipidemia, unspecified; N17.9 Acute kidney failure, unspecified; E87.5 Hyperkalemia; M79.89 Other specified soft tissue disorders; I13.0 Hypertensive heart and chronic kidney disease with heart failure and stage 1 through stage 4 chronic kidney disease, or unspecified chronic kidney disease; N18.9 Chronic kidney disease, unspecified; E11.22 Type 2 diabetes mellitus with diabetic chronic kidney disease; J44.0 Chronic obstructive pulmonary disease with (acute) lower respiratory infection; C50.919 Malignant neoplasm of unspecified site of unspecified female breast; Z20.822 Contact with and (suspected) exposure to COVID-19; I36.1 Nonrheumatic tricuspid (valve) insufficiency; Z59.0 Homelessness; Z82.49 Family history of ischemic heart disease and other diseases of the circulatory system; Z85.3 Personal history of malignant neoplasm of breast; Z90.12 Acquired absence of left breast and nipple; Z91.19 Patient's noncompliance with other medical treatment and regimen; I25.2 Old myocardial infarction; Z79.51 Long term (current) use of inhaled steroids; Z91.018 Allergy to other foods; Z79.84 Long term (current) use of oral hypoglycemic drugs; Z79.899 Other long term (current) drug therapy; Z79.82 Long term (current) use of aspirin; Z68.1 Body mass index [BMI] 19.9 or less, adult
CPT/HCPCS: 36415; 36600; 49083; 71045; 74177; 76937; 80048; 80053; 80305; 81003; 82375; 82550; 82553; 82805; 83605; 83880; 84145; 84484; 85025; 87426; 93005; 93306; 94640; 99291; C1893; J0360; J0456; J0696; J1200; J1650; J1940; J2270; J2310; J2405; J2920; J3490; J7040; J7060; J7512; J7608; Q9963; Q9967

== ENCOUNTER 2021-02-18 20:37 | Emergency (ER) | payer MEDICAID ==
[~2021-02-18] VITALS: Ht 165.1 cm; Wt 52.0 kg
[2021-02-18] MEDS ORDERED: KETOROLAC 60MG/2ML VIAL IM STA (22:45)
[2021-02-18] MEDS ORDERED: PROPOFOL 200MG/20ML VIAL IV ONE (23:45)
[2021-02-18] MEDS ORDERED: ONDANSETRON HCL 4MG/2ML INJ IV ONE (23:45)
[2021-02-19 05:15] VITALS: BP 147/92
== END 2021-02-19 05:36 | disposition home or self-care (01) ==
LOC: ER 20:37
DX: K62.3 Rectal prolapse (principal); I11.0 Hypertensive heart disease with heart failure; I50.9 Heart failure, unspecified; J44.9 Chronic obstructive pulmonary disease, unspecified; I25.2 Old myocardial infarction; Z79.899 Other long term (current) drug therapy; Z91.018 Allergy to other foods; C50.919 Malignant neoplasm of unspecified site of unspecified female breast; R45.1 Restlessness and agitation
CPT/HCPCS: 45900; 96372; 96374; 99152; 99285; J1885; J2405; J2704

== ENCOUNTER 2021-03-08 20:39 | Emergency (ER) | payer MEDICAID ==
[~2021-03-08] VITALS: Ht 167.6 cm; Wt 80.0 kg
[2021-03-08] MEDS ORDERED: LORAZEPAM 1MG TABLET PO ONE (21:30)
[2021-03-08] MEDS ORDERED: KETOROLAC 60MG/2ML VIAL IM ONE (21:30)
[2021-03-08 22:51] VITALS: BP 142/76
== END 2021-03-08 22:53 | disposition home or self-care (01) ==
LOC: ER 20:39
DX: K62.3 Rectal prolapse (principal); I11.0 Hypertensive heart disease with heart failure; I50.9 Heart failure, unspecified; J44.9 Chronic obstructive pulmonary disease, unspecified; Z85.9 Personal history of malignant neoplasm, unspecified
CPT/HCPCS: 45900; 96372; 99284; J1885

== ENCOUNTER 2021-03-08 23:18 | Inpatient (IN) | payer MEDICAID ==
[~2021-03-08] VITALS: Ht 180.3 cm; Wt 65.3 kg
[2021-03-09 02:33] LABS: BASOPHILS % 0.7 % (0.0-2.0); EOSINOPHILS % 0.3 % (0.0-5.0); HEMATOCRIT. 41.2 % (36.0-48.0); HEMOGLOBIN. 13.1 g/dL (12.0-16.0); MEAN CORPUSCULAR HEMOGLOBIN 27.3 pg (28.0-32.0); MEAN PLATELET VOLUME 9.7 fl (7.4-10.4); MONOCYTES % 7.3 % (2.0-8.0); NEUTROPHILS % 76.7 % (40.0-76.0); PLATELET 204 x1000/uL (130-400); RED BLOOD CELL COUNT 4.79 mill/uL (4.2-5.4); RED CELL DISTRIBUTION WIDTH 17.7 % (11.6-14.6)
[2021-03-09 02:41] LABS: CHLORIDE 112 mEq/L (98-107)
[2021-03-09] MEDS ORDERED: MORPHINE SULFATE 4 MG/ML CPJ (NOT FOR IM USE) IV NR (04:00)
[2021-03-09] MEDS ORDERED: ASPIRIN 325MG EC TABLET PO NR (04:00)
[2021-03-09] MEDS ORDERED: FUROSEMIDE 40MG/4ML VIAL IVP NR (05:00)
[2021-03-09] MEDS ORDERED: IPRATROPIUM/ALBUTEROL 0.5-3(2.5)MG/3ML NEB NEB PRN (07:45)
[2021-03-09] MEDS ORDERED: NITROGLYCERIN 0.4MG TABLET SL SL PRN (07:45)
[2021-03-09] MEDS ORDERED: ONDANSETRON HCL 4MG/2ML INJ IV PRN (07:45)
[2021-03-09] MEDS ORDERED: GUAIFENESIN 200MG/10ML SUGAR FREE UDC PO PRN (07:45)
[2021-03-09] MEDS ORDERED: CLONIDINE 0.1MG TABLET PO PRN (07:45)
[2021-03-09] MEDS ORDERED: ACETAMINOPHEN 325MG TABLET PO PRN (07:45)
[2021-03-09] MEDS ORDERED: MAGNESIUM/ALUMINUM HYDROXIDE/SIMETHICONE 30ML UDC PO PRN (07:45)
[2021-03-09 08:42] VITALS: BP 159/105
[2021-03-09] MEDS: ENOXAPARIN 40MG/0.4ML SYR SUBCUT SCH (08:55)
[2021-03-09] MEDS: SPIRONOLACTONE 25MG TABLET PO SCH ×2 (08:55→21:00)
[2021-03-09] MEDS: ASPIRIN 325MG EC TABLET PO SCH (08:56)
[2021-03-09] MEDS: AMLODIPINE 10MG TABLET PO SCH (08:56)
[2021-03-09] MEDS: FUROSEMIDE 40MG/4ML VIAL IVP SCH ×2 (08:56→20:59)
[2021-03-09] MEDS: FAMOTIDINE 20MG TABLET PO SCH ×2 (08:56→21:00)
[2021-03-09] MEDS: KETOROLAC 15MG/ML VIAL IV PRN ×2 (09:05→16:24)
[2021-03-09 10:10] LABS: *AMPHETAMINES SCREEN URINE NEGATIVE (NEGATIVE); *BARBITURATES SCREEN URINE NEGATIVE (NEGATIVE)
[2021-03-09 10:11] LABS: *BENZODIAZEPINES SCREEN URINE NEGATIVE (NEGATIVE); *COCAINE SCREEN URINE PRESUMTIVE POSITIVE (NEGATIVE); OPIATES URINE SCREEN NEGATIVE (NEGATIVE)
[2021-03-09 10:12] LABS: CANNABINOID URINE SCREEN PRESUMTIVE POSITIVE (NEGATIVE); PHENCYCLIDINE URINE SCREEN NEGATIVE (NEGATIVE)
[2021-03-09 10:13] LABS: METHADONE URINE SCREEN NEGATIVE (NEGATIVE)
[2021-03-09] MEDS ORDERED: SODIUM POLYSTYRENE SULFONATE 15 G/60 ML BOT PO SCH (11:00)
[2021-03-09 12:00] VITALS: BP 145/84
[2021-03-09] MEDS: SILDENAFIL CITRATE 20MG TABLET PO SCH ×2 (12:53→21:39)
[2021-03-09] MEDS: LOSARTAN POTASSIUM 25 MG TABLET PO SCH (12:54)
[2021-03-09] MEDS: DILTIAZEM HCL 30MG TABLET PO SCH ×2 (12:54→21:38)
[2021-03-09] MEDS ORDERED: DEXTROSE 50% WATER 50ML SYRINGE IV PRN (13:15)
[2021-03-09 16:00] VITALS: BP 129/81
[2021-03-09] MEDS ORDERED: MEDICATION NOT ON FORMULARY EA (Lurasidone Hcl (Latuda) 20 MG) PO SCH (16:15)
[2021-03-09] MEDS: QUETIAPINE FUMARATE 50MG TABLET PO SCH (16:24)
[2021-03-09] MEDS: BLOOD SUGAR DIAGNOSTIC STRIP TEST SCH ×2 (16:29→21:06)
[2021-03-09] MEDS: INSULIN LISPRO 100 UNITS/ML SUBCUT SCH ×2 (16:42→21:00)
[2021-03-09 16:50] LABS: CREATINE KINASE MB FRACTION 5.6 ng/mL (0.5-3.6)
[2021-03-09 20:00] VITALS: BP 133/70
[2021-03-09 23:51] LABS: CREATINE KINASE MB FRACTION 4.8 ng/mL (0.5-3.6)
[2021-03-10] VITALS: BP 119/74
[2021-03-10] MEDS: KETOROLAC 15MG/ML VIAL IV PRN ×3 (02:03→17:15)
[2021-03-10 04:00] VITALS: BP 122/80
[2021-03-10] MEDS: DILTIAZEM HCL 30MG TABLET PO SCH ×3 (05:48→21:55)
[2021-03-10] MEDS: SILDENAFIL CITRATE 20MG TABLET PO SCH ×3 (05:49→21:56)
[2021-03-10] MEDS: INSULIN LISPRO 100 UNITS/ML SUBCUT SCH ×3 (06:13→21:03)
[2021-03-10] MEDS: BLOOD SUGAR DIAGNOSTIC STRIP TEST SCH ×4 (06:13→21:04)
[2021-03-10 07:40] LABS: BASOPHILS % 0.8 % (0.0-2.0); HEMATOCRIT. 44.4 % (36.0-48.0); LYMPHOCYTES % 23.7 % (20.0-50.0); MEAN CORPUSCULAR VOLUME 85.5 fL (81.0-99.0); MEAN PLATELET VOLUME 9.8 fl (7.4-10.4); MONOCYTES % 10.7 % (2.0-8.0); NEUTROPHILS % 62.8 % (40.0-76.0); PLATELET 253 x1000/uL (130-400); RED BLOOD CELL COUNT 5.19 mill/uL (4.2-5.4); RED CELL DISTRIBUTION WIDTH 17.4 % (11.6-14.6)
[2021-03-10 07:42] LABS: CHLORIDE 108 mEq/L (98-107)
[2021-03-10 07:49] LABS: PHOSPHORUS 3.8 mg/dL (2.5-4.9)
[2021-03-10 08:00] VITALS: BP 118/69
[2021-03-10] MEDS: ENOXAPARIN 40MG/0.4ML SYR SUBCUT SCH (09:35)
[2021-03-10] MEDS: FUROSEMIDE 40MG/4ML VIAL IVP SCH ×2 (09:35→21:03)
[2021-03-10] MEDS: LOSARTAN POTASSIUM 25 MG TABLET PO SCH (09:36)
[2021-03-10] MEDS: ASPIRIN 325MG EC TABLET PO SCH (09:36)
[2021-03-10] MEDS: AMLODIPINE 10MG TABLET PO SCH (09:37)
[2021-03-10] MEDS: QUETIAPINE FUMARATE 50MG TABLET PO SCH ×2 (09:39→17:15)
[2021-03-10] MEDS: SPIRONOLACTONE 25MG TABLET PO SCH ×2 (09:46→21:16)
[2021-03-10] MEDS: FAMOTIDINE 20MG TABLET PO SCH ×2 (09:46→21:05)
[2021-03-10] MEDS: LORAZEPAM 0.5MG TABLET PO PRN (14:51)
[2021-03-10 20:00] VITALS: BP 140/93
[2021-03-10] MEDS: ACETAMINOPHEN 325MG TABLET PO PRN (21:06)
[2021-03-11] VITALS: BP 152/88
[2021-03-11] MEDS: ZOLPIDEM TARTRATE 5MG TABLET PO PRN (01:17)
[2021-03-11] MEDS: KETOROLAC 15MG/ML VIAL IV PRN ×4 (01:19→21:41)
[2021-03-11 04:00] VITALS: BP 129/87
[2021-03-11] MEDS: DILTIAZEM HCL 30MG TABLET PO SCH ×3 (05:31→21:43)
[2021-03-11] MEDS: SILDENAFIL CITRATE 20MG TABLET PO SCH ×3 (05:31→21:42)
[2021-03-11] MEDS: BLOOD SUGAR DIAGNOSTIC STRIP TEST SCH ×4 (05:55→21:43)
[2021-03-11] MEDS: INSULIN LISPRO 100 UNITS/ML SUBCUT SCH ×4 (05:56→21:00)
[2021-03-11 08:00] VITALS: BP 124/80
[2021-03-11] MEDS: FUROSEMIDE 40MG/4ML VIAL IVP SCH ×2 (09:01→21:42)
[2021-03-11] MEDS: AMLODIPINE 10MG TABLET PO SCH (09:02)
[2021-03-11] MEDS: QUETIAPINE FUMARATE 50MG TABLET PO SCH ×2 (09:02→17:25)
[2021-03-11] MEDS: ENOXAPARIN 40MG/0.4ML SYR SUBCUT SCH (09:03)
[2021-03-11] MEDS: FAMOTIDINE 20MG TABLET PO SCH ×2 (09:03→21:42)
[2021-03-11] MEDS: ASPIRIN 325MG EC TABLET PO SCH (09:03)
[2021-03-11] MEDS: LOSARTAN POTASSIUM 25 MG TABLET PO SCH (09:03)
[2021-03-11] MEDS: SPIRONOLACTONE 25MG TABLET PO SCH ×2 (09:18→21:44)
[2021-03-11 12:00] VITALS: BP 131/70
[2021-03-11 16:00] VITALS: BP 125/67
[2021-03-11] MEDS ORDERED: PHENYLEPH/PRAMOXIN/GLYCR/PET RECTAL CREAM 26GM PR PRN (16:00)
[2021-03-11] MEDS ORDERED: HEMORRHOIDAL SUPP PR PRN (16:30)
[2021-03-11] MEDS: DOCUSATE SODIUM 100MG CAPSULE PO PRN (17:25)
[2021-03-11] MEDS: PHENYLEPH/PRAMOXIN/GLYCR/PET RECTAL CREAM 26GM PR PRN (18:24)
[2021-03-11 20:00] VITALS: BP 125/69
[2021-03-12] VITALS: BP 138/63
[2021-03-12] MEDS: ZOLPIDEM TARTRATE 5MG TABLET PO PRN (00:34)
[2021-03-12] MEDS: PHENYLEPH/PRAMOXIN/GLYCR/PET RECTAL CREAM 26GM PR PRN ×2 (00:35→09:25)
[2021-03-12] MEDS: KETOROLAC 15MG/ML VIAL IV PRN ×4 (03:17→21:44)
[2021-03-12 04:00] VITALS: BP 155/95
[2021-03-12] MEDS: SILDENAFIL CITRATE 20MG TABLET PO SCH ×3 (06:04→21:46)
[2021-03-12] MEDS: DILTIAZEM HCL 30MG TABLET PO SCH ×3 (06:05→21:45)
[2021-03-12] MEDS: DOCUSATE SODIUM 100MG CAPSULE PO PRN ×2 (06:05→18:01)
[2021-03-12] MEDS: BLOOD SUGAR DIAGNOSTIC STRIP TEST SCH ×4 (06:27→21:32)
[2021-03-12] MEDS: INSULIN LISPRO 100 UNITS/ML SUBCUT SCH ×4 (06:27→21:00)
[2021-03-12 08:00] VITALS: BP 145/76
[2021-03-12] MEDS: FAMOTIDINE 20MG TABLET PO SCH ×2 (09:00→21:45)
[2021-03-12] MEDS: LOSARTAN POTASSIUM 25 MG TABLET PO SCH (09:00)
[2021-03-12] MEDS: QUETIAPINE FUMARATE 50MG TABLET PO SCH ×2 (09:00→18:01)
[2021-03-12] MEDS: AMLODIPINE 10MG TABLET PO SCH (09:00)
[2021-03-12] MEDS: ENOXAPARIN 40MG/0.4ML SYR SUBCUT SCH (09:00)
[2021-03-12] MEDS: SPIRONOLACTONE 25MG TABLET PO SCH ×2 (09:00→21:45)
[2021-03-12] MEDS: ASPIRIN 325MG EC TABLET PO SCH (09:00)
[2021-03-12] MEDS: FUROSEMIDE 40MG/4ML VIAL IVP SCH ×2 (09:25→21:44)
[2021-03-12 12:00] VITALS: BP 139/93
[2021-03-12] MEDS ORDERED: BUPIVACAINE HCL/PF 0.5% (5MG/ML) 10ML ONE (15:47)
[2021-03-12 16:00] VITALS: BP 142/90
[2021-03-12 16:03] LABS: BASOPHILS % 0.7 % (0.0-2.0); EOSINOPHILS % 1.2 % (0.0-5.0); HEMATOCRIT. 46.5 % (36.0-48.0); HEMOGLOBIN. 14.7 g/dL (12.0-16.0); MEAN CORPUSCULAR HEMOGLOBIN 26.9 pg (28.0-32.0); MEAN CORPUSCULAR VOLUME 84.9 fL (81.0-99.0); MEAN PLATELET VOLUME 9.1 fl (7.4-10.4); MONOCYTES % 13.1 % (2.0-8.0); PLATELET 303 x1000/uL (130-400); RED BLOOD CELL COUNT 5.48 mill/uL (4.2-5.4); RED CELL DISTRIBUTION WIDTH 17.3 % (11.6-14.6)
[2021-03-12 20:00] VITALS: BP 138/69
[2021-03-13] VITALS: BP 149/95
[2021-03-13] MEDS: ACETAMINOPHEN 325MG TABLET PO PRN ×2 (00:16→09:19)
[2021-03-13] MEDS: ZOLPIDEM TARTRATE 5MG TABLET PO PRN (00:16)
[2021-03-13] MEDS: LORAZEPAM 0.5MG TABLET PO PRN (00:40)
[2021-03-13] MEDS: KETOROLAC 15MG/ML VIAL IV PRN ×2 (03:39→14:15)
[2021-03-13 04:00] VITALS: BP 135/76
[2021-03-13] MEDS: SILDENAFIL CITRATE 20MG TABLET PO SCH ×2 (05:39→14:14)
[2021-03-13] MEDS: DILTIAZEM HCL 30MG TABLET PO SCH ×2 (05:39→14:00)
[2021-03-13] MEDS: BLOOD SUGAR DIAGNOSTIC STRIP TEST SCH ×2 (07:24→12:21)
[2021-03-13] MEDS: INSULIN LISPRO 100 UNITS/ML SUBCUT SCH ×2 (07:24→12:21)
[2021-03-13 08:00] VITALS: BP 117/78
[2021-03-13] MEDS: DOCUSATE SODIUM 100MG CAPSULE PO PRN (09:18)
[2021-03-13] MEDS: FAMOTIDINE 20MG TABLET PO SCH (09:18)
[2021-03-13] MEDS: ASPIRIN 325MG EC TABLET PO SCH (09:18)
[2021-03-13] MEDS: SPIRONOLACTONE 25MG TABLET PO SCH (09:18)
[2021-03-13] MEDS: LOSARTAN POTASSIUM 25 MG TABLET PO SCH (09:19)
[2021-03-13] MEDS: ENOXAPARIN 40MG/0.4ML SYR SUBCUT SCH (09:19)
[2021-03-13] MEDS: QUETIAPINE FUMARATE 50MG TABLET PO SCH (09:19)
[2021-03-13] MEDS: AMLODIPINE 10MG TABLET PO SCH (09:19)
[2021-03-13] MEDS: FUROSEMIDE 40MG/4ML VIAL IVP SCH (09:20)
[2021-03-13 10:40] LABS: BASOPHILS % 0.7 % (0.0-2.0); EOSINOPHILS % 1.7 % (0.0-5.0); HEMATOCRIT. 45.7 % (36.0-48.0); HEMOGLOBIN. 14.3 g/dL (12.0-16.0); LYMPHOCYTES % 19.8 % (20.0-50.0); MEAN CORPUSCULAR HEMOGLOBIN 26.7 pg (28.0-32.0); MEAN CORPUSCULAR VOLUME 85.1 fL (81.0-99.0); MEAN PLATELET VOLUME 9.7 fl (7.4-10.4); MONOCYTES % 11.2 % (2.0-8.0); NEUTROPHILS % 66.6 % (40.0-76.0); PLATELET 295 x1000/uL (130-400); RED BLOOD CELL COUNT 5.37 mill/uL (4.2-5.4); RED CELL DISTRIBUTION WIDTH 17.5 % (11.6-14.6)
[2021-03-13 11:08] VITALS: BP 117/78
[2021-03-13 12:00] VITALS: BP 108/67
[2021-03-13 14:15] VITALS: BP 108/67
== END 2021-03-13 15:30 | disposition home or self-care (01) | DRG 190 ==
LOC: ER 23:18 → 8WST 03-09 04:12 → ENRESERV 03-09 07:56
PROVIDERS: ADMIT Internal Medicine; ATTEND Internal Medicine
DX: I21.4 Non-ST elevation (NSTEMI) myocardial infarction (principal); E43 Unspecified severe protein-calorie malnutrition; I27.21 Secondary pulmonary arterial hypertension; I42.9 Cardiomyopathy, unspecified; I50.9 Heart failure, unspecified; I11.0 Hypertensive heart disease with heart failure; E11.9 Type 2 diabetes mellitus without complications; E78.5 Hyperlipidemia, unspecified; E87.5 Hyperkalemia; F12.10 Cannabis abuse, uncomplicated; F14.10 Cocaine abuse, uncomplicated; F17.210 Nicotine dependence, cigarettes, uncomplicated; F31.9 Bipolar disorder, unspecified; I07.1 Rheumatic tricuspid insufficiency; J44.9 Chronic obstructive pulmonary disease, unspecified; I25.10 Atherosclerotic heart disease of native coronary artery without angina pectoris; Z20.822 Contact with and (suspected) exposure to COVID-19; K62.3 Rectal prolapse; Z79.4 Long term (current) use of insulin; Z82.49 Family history of ischemic heart disease and other diseases of the circulatory system; I25.2 Old myocardial infarction; Z85.3 Personal history of malignant neoplasm of breast; Z90.10 Acquired absence of unspecified breast and nipple; Z71.51 Drug abuse counseling and surveillance of drug abuser; Z68.20 Body mass index [BMI] 20.0-20.9, adult; Z91.018 Allergy to other foods; Z79.899 Other long term (current) drug therapy
CPT/HCPCS: 36415; 71045; 80048; 80053; 80061; 80305; 82550; 82553; 82962; 83036; 83735; 83880; 84100; 84484; 85025; 87426; 93005; 93970; 99285; C1893; J1650; J1815; J1885; J1940; J2270; J3490

== ENCOUNTER 2021-05-07 11:31 | Inpatient (IN) | payer MEDICAID ==
[~2021-05-07] VITALS: Ht 165.1 cm; Wt 68.0 kg
[2021-05-07 15:30] LABS: BASOPHILS % 0.7 % (0.0-2.0); EOSINOPHILS % 1.3 % (0.0-5.0); HEMATOCRIT. 41.4 % (36.0-48.0); HEMOGLOBIN. 12.5 g/dL (12.0-16.0); LYMPHOCYTES % 18.3 % (20.0-50.0); MEAN CORPUSCULAR VOLUME 83.2 fL (81.0-99.0); MEAN PLATELET VOLUME 8.2 fl (7.4-10.4); MONOCYTES % 13.3 % (2.0-8.0); NEUTROPHILS % 66.4 % (40.0-76.0); PLATELET 233 x1000/uL (130-400); RED BLOOD CELL COUNT 4.98 mill/uL (4.2-5.4); RED CELL DISTRIBUTION WIDTH 19.9 % (11.6-14.6)
[2021-05-07 15:38] LABS: CHLORIDE 113 mEq/L (98-107)
[2021-05-07 15:41] LABS: INR 1.2
[2021-05-07] MEDS ORDERED: LEVOFLOXACIN 500MG PREMIX 100 ML IV ONE (17:30)
[2021-05-07] MEDS ORDERED: IPRATROPIUM/ALBUTEROL 0.5-3(2.5)MG/3ML NEB NEB PRN (21:00)
[2021-05-07] MEDS ORDERED: MAGNESIUM/ALUMINUM HYDROXIDE/SIMETHICONE 30ML UDC PO PRN (21:00)
[2021-05-07] MEDS ORDERED: GUAIFENESIN 200MG/10ML SUGAR FREE UDC PO PRN (21:00)
[2021-05-07] MEDS ORDERED: NITROGLYCERIN 0.4MG TABLET SL SL PRN (21:00)
[2021-05-07] MEDS ORDERED: DOCUSATE SODIUM 100MG CAPSULE PO PRN (21:00)
[2021-05-07] MEDS ORDERED: ACETAMINOPHEN 325MG TABLET PO PRN (21:00)
[2021-05-07] MEDS ORDERED: ONDANSETRON HCL 4MG/2ML INJ IV PRN (21:00)
[2021-05-07 21:21] LABS: ETHANOL BLOOD < 10 mg/dL
[2021-05-07] MEDS: ENOXAPARIN 40MG/0.4ML SYR SUBCUT SCH (22:37)
[2021-05-07] MEDS: FAMOTIDINE 20MG TABLET PO SCH (22:39)
[2021-05-07] MEDS: KETOROLAC 30MG/ML VIAL IV PRN (22:39)
[2021-05-07] MEDS: FUROSEMIDE 40MG/4ML VIAL IVP SCH (22:39)
[2021-05-07] MEDS: LISINOPRIL 20MG TABLET PO SCH (22:40)
[2021-05-07] MEDS: SPIRONOLACTONE 25MG TABLET PO SCH (22:40)
[2021-05-07] MEDS: ZOLPIDEM TARTRATE 5MG TABLET PO PRN (23:58)
[2021-05-08] VITALS (7 sets, daily range): BP systolic 130–158; BP diastolic 63–108
[2021-05-08] MEDS: CLONIDINE 0.1MG TABLET PO PRN ×2 (02:30→13:24)
[2021-05-08 05:41] LABS: BASOPHILS % 0.6 % (0.0-2.0); EOSINOPHILS % 1.2 % (0.0-5.0); HEMATOCRIT. 38.7 % (36.0-48.0); HEMOGLOBIN. 11.9 g/dL (12.0-16.0); LYMPHOCYTES % 18.5 % (20.0-50.0); MEAN CORPUSCULAR HEMOGLOBIN 25.6 pg (28.0-32.0); MEAN CORPUSCULAR VOLUME 83.4 fL (81.0-99.0); MEAN PLATELET VOLUME 8.1 fl (7.4-10.4); MONOCYTES % 13.5 % (2.0-8.0); NEUTROPHILS % 66.2 % (40.0-76.0); PLATELET 195 x1000/uL (130-400); RED BLOOD CELL COUNT 4.64 mill/uL (4.2-5.4); RED CELL DISTRIBUTION WIDTH 19.4 % (11.6-14.6)
[2021-05-08 05:57] LABS: CHLORIDE 112 mEq/L (98-107)
[2021-05-08 06:02] LABS: PHOSPHORUS 2.9 mg/dL (2.5-4.9)
[2021-05-08] MEDS: KETOROLAC 30MG/ML VIAL IV PRN (06:26)
[2021-05-08] MEDS: AMLODIPINE 10MG TABLET PO SCH (09:41)
[2021-05-08] MEDS: LISINOPRIL 20MG TABLET PO SCH ×2 (09:42→20:28)
[2021-05-08] MEDS: ASPIRIN 325MG EC TABLET PO SCH (09:42)
[2021-05-08] MEDS: SPIRONOLACTONE 25MG TABLET PO SCH ×2 (10:29→20:28)
[2021-05-08] MEDS: FUROSEMIDE 40MG/4ML VIAL IVP SCH ×2 (10:29→20:27)
[2021-05-08 14:39] LABS: VITAMIN B12 SERUM 776 pg/mL (211-911)
[2021-05-08] MEDS: FAMOTIDINE 20MG TABLET PO SCH (20:27)
[2021-05-08] MEDS: ENOXAPARIN 40MG/0.4ML SYR SUBCUT SCH (20:31)
[2021-05-09] MEDS: ZOLPIDEM TARTRATE 5MG TABLET PO PRN ×2 (01:05→20:41)
[2021-05-09 04:00] VITALS: BP 138/75
[2021-05-09 05:26] LABS: *AMPHETAMINES SCREEN URINE NEGATIVE (NEGATIVE); *BARBITURATES SCREEN URINE NEGATIVE (NEGATIVE); *BENZODIAZEPINES SCREEN URINE NEGATIVE (NEGATIVE); *COCAINE SCREEN URINE PRESUMTIVE POSITIVE (NEGATIVE)
[2021-05-09 05:27] LABS: CANNABINOID URINE SCREEN NEGATIVE (NEGATIVE); METHADONE URINE SCREEN NEGATIVE (NEGATIVE); OPIATES URINE SCREEN NEGATIVE (NEGATIVE); PHENCYCLIDINE URINE SCREEN NEGATIVE (NEGATIVE)
[2021-05-09 08:00] VITALS: BP 135/78
[2021-05-09] MEDS: SPIRONOLACTONE 25MG TABLET PO SCH ×2 (08:28→20:35)
[2021-05-09] MEDS: FUROSEMIDE 40MG/4ML VIAL IVP SCH ×2 (08:28→20:35)
[2021-05-09] MEDS: ASPIRIN 325MG EC TABLET PO SCH (08:28)
[2021-05-09] MEDS: AMLODIPINE 10MG TABLET PO SCH (08:28)
[2021-05-09] MEDS: LISINOPRIL 20MG TABLET PO SCH ×2 (08:28→20:35)
[2021-05-09 12:00] VITALS: BP 132/74
[2021-05-09 16:00] VITALS: BP 136/78
[2021-05-09 20:00] VITALS: BP 145/66
[2021-05-09] MEDS: FAMOTIDINE 20MG TABLET PO SCH (20:35)
[2021-05-09] MEDS: ENOXAPARIN 40MG/0.4ML SYR SUBCUT SCH (20:36)
[2021-05-10] VITALS: BP 131/75
[2021-05-10 04:05] VITALS: BP 131/79
[2021-05-10] MEDS: ACETAMINOPHEN 325MG TABLET PO PRN ×2 (04:05→20:31)
[2021-05-10 06:10] LABS: BASOPHILS % 0.7 % (0.0-2.0); EOSINOPHILS % 1.6 % (0.0-5.0); HEMATOCRIT. 37.7 % (36.0-48.0); LYMPHOCYTES % 12.8 % (20.0-50.0); MEAN CORPUSCULAR HEMOGLOBIN 26.1 pg (28.0-32.0); MEAN PLATELET VOLUME 8.2 fl (7.4-10.4); MONOCYTES % 11.1 % (2.0-8.0); NEUTROPHILS % 73.8 % (40.0-76.0); PLATELET 193 x1000/uL (130-400); RED CELL DISTRIBUTION WIDTH 19.4 % (11.6-14.6)
[2021-05-10 06:15] LABS: CHLORIDE 109 mEq/L (98-107)
[2021-05-10 06:21] LABS: PHOSPHORUS 2.9 mg/dL (2.5-4.9)
[2021-05-10 07:33] VITALS: BP_SYST 122; BP_SYST 130; BP_DIAS 78
[2021-05-10] MEDS: ASPIRIN 325MG EC TABLET PO SCH (09:12)
[2021-05-10] MEDS: AMLODIPINE 10MG TABLET PO SCH (09:13)
[2021-05-10] MEDS: SPIRONOLACTONE 25MG TABLET PO SCH ×2 (09:13→20:30)
[2021-05-10] MEDS: LISINOPRIL 20MG TABLET PO SCH ×2 (09:13→20:30)
[2021-05-10] MEDS: FUROSEMIDE 40MG/4ML VIAL IVP SCH ×2 (09:13→20:30)
[2021-05-10 12:01] VITALS: BP 120/76
[2021-05-10 16:00] VITALS: BP 122/74
[2021-05-10 19:31] VITALS: BP 133/79
[2021-05-10] MEDS: FAMOTIDINE 20MG TABLET PO SCH (20:30)
[2021-05-10] MEDS: ZOLPIDEM TARTRATE 5MG TABLET PO PRN (20:30)
[2021-05-10] MEDS: ENOXAPARIN 40MG/0.4ML SYR SUBCUT SCH (20:31)
[2021-05-11] VITALS: BP 130/80
[2021-05-11 03:57] VITALS: BP 117/90
[2021-05-11 08:59] VITALS: BP 140/77
[2021-05-11] MEDS: ACETAMINOPHEN 325MG TABLET PO PRN (09:18)
[2021-05-11] MEDS: SPIRONOLACTONE 25MG TABLET PO SCH (09:19)
[2021-05-11] MEDS: LISINOPRIL 20MG TABLET PO SCH (09:19)
[2021-05-11] MEDS: ASPIRIN 325MG EC TABLET PO SCH (09:19)
[2021-05-11] MEDS: AMLODIPINE 10MG TABLET PO SCH (09:19)
[2021-05-11] MEDS: FUROSEMIDE 40MG/4ML VIAL IVP SCH (09:20)
[2021-05-11 11:31] VITALS: BP 123/67
[2021-05-11 12:21] VITALS: BP 123/67
== END 2021-05-11 12:55 | disposition home or self-care (01) | DRG 194 ==
LOC: ER 11:31 → 6WST 19:41 → EDBEDREQ 19:52 → EDBEDREQTM 19:52 → ENRESERV 05-08 07:20 → 6WST 05-09 08:05
PROVIDERS: ADMIT Internal Medicine; ATTEND Internal Medicine
DX: I11.0 Hypertensive heart disease with heart failure (principal); N17.0 Acute kidney failure with tubular necrosis; E43 Unspecified severe protein-calorie malnutrition; I50.43 Acute on chronic combined systolic (congestive) and diastolic (congestive) heart failure; J18.9 Pneumonia, unspecified organism; M19.90 Unspecified osteoarthritis, unspecified site; F14.10 Cocaine abuse, uncomplicated; R79.89 Other specified abnormal findings of blood chemistry; J44.0 Chronic obstructive pulmonary disease with (acute) lower respiratory infection; Z20.822 Contact with and (suspected) exposure to COVID-19; F17.210 Nicotine dependence, cigarettes, uncomplicated; Z76.5 Malingerer [conscious simulation]; Z68.25 Body mass index [BMI] 25.0-25.9, adult; Z71.6 Tobacco abuse counseling; Z82.49 Family history of ischemic heart disease and other diseases of the circulatory system; Z90.12 Acquired absence of left breast and nipple; Z91.018 Allergy to other foods; Z71.51 Drug abuse counseling and surveillance of drug abuser
CPT/HCPCS: 36415; 71045; 80053; 80305; 80320; 82607; 83735; 83880; 84100; 84145; 84425; 84484; 85025; 87426; 93005; 93970; 99285; J1650; J1885; J1940; J1956; G0480

== ENCOUNTER 2021-08-17 16:54 | Inpatient (IN) | payer MEDICAID ==
[~2021-08-17] VITALS: Ht 180.3 cm; Wt 76.7 kg
[2021-08-17] MEDS ORDERED: IPRATROPIUM BROMIDE (0.02%) 0.5MG/2.5ML NEB HHN STA (17:17)
[2021-08-17] MEDS ORDERED: METHYLPREDNISOLONE SOD SUCC 125 MG/2 ML VIAL IV STA (17:17)
[2021-08-17 17:53] LABS: BASOPHILS % 0.6 % (0.0-2.0); EOSINOPHILS % 0.8 % (0.0-5.0); HEMATOCRIT. 44.8 % (36.0-48.0); HEMOGLOBIN. 13.9 g/dL (12.0-16.0); LYMPHOCYTES % 11.1 % (20.0-50.0); MEAN CORPUSCULAR HEMOGLOBIN 25.8 pg (28.0-32.0); MEAN PLATELET VOLUME 8.7 fl (7.4-10.4); MONOCYTES % 8.3 % (2.0-8.0); NEUTROPHILS % 79.2 % (40.0-76.0); PLATELET 203 x1000/uL (130-400); RED CELL DISTRIBUTION WIDTH 20.5 % (11.6-14.6)
[2021-08-17 18:13] LABS: CHLORIDE 111 mEq/L (98-107)
[2021-08-17] MEDS: ALBUTEROL (0.083%) 2.5MG/3ML NEB HHN SCH ×3 (18:15→18:50)
[2021-08-17] MEDS ORDERED: FUROSEMIDE 100MG/10ML VIAL IVP ONE (18:45)
[2021-08-17] MEDS ORDERED: ASPIRIN 81MG TABLET PO ONE (18:45)
[2021-08-17] MEDS ORDERED: MORPHINE SULFATE 4 MG/ML CPJ (NOT FOR IM USE) IV ONE (21:30)
[2021-08-18] MEDS ORDERED: IPRATROPIUM/ALBUTEROL 0.5-3(2.5)MG/3ML NEB HHN PRN (00:15)
[2021-08-18] MEDS ORDERED: GUAIFENESIN 200MG/10ML SUGAR FREE UDC PO PRN (00:15)
[2021-08-18] MEDS ORDERED: ZOLPIDEM TARTRATE 5MG TABLET PO PRN (00:15)
[2021-08-18] MEDS ORDERED: MAGNESIUM HYDROXIDE 400MG/5ML 30ML UDC PO PRN (00:15)
[2021-08-18] MEDS ORDERED: ONDANSETRON HCL 4MG/2ML INJ IV PRN (00:15)
[2021-08-18] MEDS ORDERED: ACETAMINOPHEN 325MG TABLET PO PRN ×2 (00:15)
[2021-08-18] MEDS ORDERED: CLONIDINE 0.2MG TABLET PO PRN (00:30)
[2021-08-18] MEDS: LISINOPRIL 20MG TABLET PO SCH ×3 (00:42→20:29)
[2021-08-18] MEDS ORDERED: METHYLPREDNISOLONE SOD SUCC 125 MG/2 ML VIAL IV SCH (02:00)
[2021-08-18 02:30] VITALS: BP 183/111
[2021-08-18 03:00] VITALS: BP 183/111
[2021-08-18] MEDS: FUROSEMIDE 40MG/4ML VIAL IVP SCH ×3 (03:30→20:28)
[2021-08-18 04:00] VITALS: BP 173/104
[2021-08-18] MEDS: HYDRALAZINE 20MG/ML VIAL IV PRN (05:27)
[2021-08-18] MEDS: SODIUM CHLORIDE 0.9% INJ 3ML FLUSH IVF SCH ×3 (05:27→20:31)
[2021-08-18] MEDS: HYDROCODONE/ACETAMINOPHEN 5/325MG TABLET PO PRN ×3 (05:57→18:31)
[2021-08-18] MEDS: DOCUSATE SODIUM 100MG CAPSULE PO SCH ×2 (09:00→17:00)
[2021-08-18 09:11] VITALS: BP 149/93
[2021-08-18] MEDS: AMLODIPINE 10MG TABLET PO SCH (09:34)
[2021-08-18] MEDS: SPIRONOLACTONE 25MG TABLET PO SCH ×2 (09:35→20:29)
[2021-08-18] MEDS: HYDROCORTISONE ACETATE 25MG SUPP PR SCH ×2 (09:37→20:30)
[2021-08-18] MEDS: ENOXAPARIN 40MG/0.4ML SYR SUBCUT SCH (09:38)
[2021-08-18 14:35] VITALS: BP 160/90
[2021-08-18] MEDS ORDERED: DEXTROSE 50% WATER 50ML SYRINGE IV PRN (15:00)
[2021-08-18] MEDS: BUPROPION HCL 100MG SR TABLET PO SCH (16:00)
[2021-08-18] MEDS ORDERED: BUDESONIDE 0.5MG/2ML NEB HHN SCH (16:00)
[2021-08-18] MEDS: BLOOD SUGAR DIAGNOSTIC STRIP TEST SCH ×2 (17:10→20:30)
[2021-08-18 20:00] VITALS: BP 130/60
[2021-08-18] MEDS: INSULIN LISPRO 100 UNITS/ML SUBCUT SCH ×2 (20:24→21:00)
[2021-08-18] MEDS: HYDRALAZINE HCL 50MG TABLET PO SCH (20:29)
[2021-08-18] MEDS: FAMOTIDINE 20MG TABLET PO SCH (20:30)
[2021-08-18] MEDS: QUETIAPINE FUMARATE 50MG TABLET PO SCH (20:30)
[2021-08-19] VITALS (7 sets, daily range): BP systolic 127–182; BP diastolic 58–96
[2021-08-19] MEDS: SODIUM CHLORIDE 0.9% INJ 3ML FLUSH IVF SCH ×3 (05:52→22:34)
[2021-08-19] MEDS: BLOOD SUGAR DIAGNOSTIC STRIP TEST SCH ×4 (05:53→21:00)
[2021-08-19] MEDS: INSULIN LISPRO 100 UNITS/ML SUBCUT SCH ×4 (07:40→21:00)
[2021-08-19] MEDS: FUROSEMIDE 40MG/4ML VIAL IVP SCH ×2 (09:41→22:20)
[2021-08-19] MEDS: HYDROCORTISONE ACETATE 25MG SUPP PR SCH ×2 (09:41→21:00)
[2021-08-19] MEDS: ENOXAPARIN 40MG/0.4ML SYR SUBCUT SCH (09:41)
[2021-08-19] MEDS: AMLODIPINE 10MG TABLET PO SCH (09:42)
[2021-08-19] MEDS: DOCUSATE SODIUM 100MG CAPSULE PO SCH ×2 (09:42→17:00)
[2021-08-19] MEDS: SPIRONOLACTONE 25MG TABLET PO SCH ×2 (09:42→22:20)
[2021-08-19] MEDS: BUPROPION HCL 100MG SR TABLET PO SCH (09:42)
[2021-08-19] MEDS: HYDRALAZINE HCL 50MG TABLET PO SCH ×2 (09:42→22:34)
[2021-08-19] MEDS: LISINOPRIL 20MG TABLET PO SCH ×2 (09:43→22:21)
[2021-08-19] MEDS: DIPHENHYDRAMINE 50MG/ML VIAL IV PRN ×2 (11:58→19:49)
[2021-08-19] MEDS ORDERED: MAGNESIUM 2 G PREMIX 50 ML IV NR (12:00)
[2021-08-19] MEDS: QUETIAPINE FUMARATE 50MG TABLET PO SCH (22:20)
[2021-08-19] MEDS: FAMOTIDINE 20MG TABLET PO SCH (22:21)
[2021-08-20] VITALS: BP 138/85
[2021-08-20 04:00] VITALS: BP 110/69
[2021-08-20] MEDS: INSULIN LISPRO 100 UNITS/ML SUBCUT SCH (06:15)
[2021-08-20] MEDS: SODIUM CHLORIDE 0.9% INJ 3ML FLUSH IVF SCH (06:15)
[2021-08-20] MEDS: BLOOD SUGAR DIAGNOSTIC STRIP TEST SCH (06:15)
[2021-08-20 08:00] VITALS: BP 120/73
[2021-08-20] MEDS: ENOXAPARIN 40MG/0.4ML SYR SUBCUT SCH (08:59)
[2021-08-20] MEDS: HYDROCORTISONE ACETATE 25MG SUPP PR SCH (09:00)
[2021-08-20] MEDS: BUPROPION HCL 100MG SR TABLET PO SCH (09:00)
[2021-08-20] MEDS: LISINOPRIL 20MG TABLET PO SCH (09:00)
[2021-08-20] MEDS: HYDRALAZINE 20MG/ML VIAL IV PRN ×3 (09:00→09:11)
[2021-08-20] MEDS: FUROSEMIDE 40MG/4ML VIAL IVP SCH (09:00)
[2021-08-20] MEDS: DOCUSATE SODIUM 100MG CAPSULE PO SCH (09:00)
[2021-08-20] MEDS: AMLODIPINE 10MG TABLET PO SCH (09:01)
[2021-08-20] MEDS: SPIRONOLACTONE 25MG TABLET PO SCH (09:07)
[2021-08-20] MEDS: DIPHENHYDRAMINE 50MG/ML VIAL IV PRN (09:16)
[2021-08-20] MEDS: HYDRALAZINE HCL 50MG TABLET PO SCH (09:16)
[2021-08-20 15:11] VITALS: BP 129/81
[2021-09-06] MEDS ORDERED: BUPR-46 PO (13:57)
== END 2021-08-20 14:45 | disposition home or self-care (01) | DRG 194 ==
LOC: ER 16:54 → 8WST 20:20 → EDBEDREQTM 20:53 → EDBEDREQ 20:53 → ENRESERV 23:29
PROVIDERS: ADMIT Internal Medicine; ATTEND Internal Medicine
DX: I13.0 Hypertensive heart and chronic kidney disease with heart failure and stage 1 through stage 4 chronic kidney disease, or unspecified chronic kidney disease (principal); J96.00 Acute respiratory failure, unspecified whether with hypoxia or hypercapnia; E43 Unspecified severe protein-calorie malnutrition; I27.20 Pulmonary hypertension, unspecified; F17.200 Nicotine dependence, unspecified, uncomplicated; J44.9 Chronic obstructive pulmonary disease, unspecified; F41.9 Anxiety disorder, unspecified; I50.23 Acute on chronic systolic (congestive) heart failure; F99 Mental disorder, not otherwise specified; N18.9 Chronic kidney disease, unspecified; Z85.3 Personal history of malignant neoplasm of breast; Z91.14 Patient's other noncompliance with medication regimen; Z59.01 Sheltered homelessness; Z79.899 Other long term (current) drug therapy; Z82.49 Family history of ischemic heart disease and other diseases of the circulatory system; Z91.018 Allergy to other foods; Z79.82 Long term (current) use of aspirin; Z68.23 Body mass index [BMI] 23.0-23.9, adult
CPT/HCPCS: 36415; 71045; 80048; 80053; 82962; 83036; 83735; 83880; 84484; 85025; 93005; 93970; 94640; 99291; C1893; J0360; J1200; J1650; J1940; J2270; J2930; J3475

== ENCOUNTER 2021-10-19 19:47 | Inpatient (IN) | payer MEDICAID ==
[~2021-10-19] VITALS: Ht 172.7 cm; Wt 67.6 kg
[~2021-10-19 19:47] MED LIST changes: +BUPR-46 PO; -BUPR100T13 PO
[2021-10-19] MEDS ORDERED: MORPHINE SULFATE 2 MG/ML CPJ (NOT FOR IM USE) IV ONE (23:45)
[2021-10-20] LABS: BASOPHILS % 0.6 % (0.0-2.0); EOSINOPHILS % 0.9 % (0.0-5.0); HEMATOCRIT. 46.5 % (36.0-48.0); HEMOGLOBIN. 14.6 g/dL (12.0-16.0); LYMPHOCYTES % 9.4 % (20.0-50.0); MEAN CORPUSCULAR HEMOGLOBIN 25.8 pg (28.0-32.0); MEAN CORPUSCULAR VOLUME 82.2 fL (81.0-99.0); MEAN PLATELET VOLUME 8.4 fl (7.4-10.4); MONOCYTES % 8.3 % (2.0-8.0); NEUTROPHILS % 80.8 % (40.0-76.0); PLATELET 199 x1000/uL (130-400); RED BLOOD CELL COUNT 5.66 mill/uL (4.2-5.4); RED CELL DISTRIBUTION WIDTH 18.5 % (11.6-14.6)
[2021-10-20 00:13] LABS: CHLORIDE 108 mEq/L (98-107)
[2021-10-20] MEDS ORDERED: SODIUM CHLORIDE 0.9% 1,000 ML IV ONE (01:00)
[2021-10-20 08:00] VITALS: BP_SYST 131; BP_SYST 144; BP_DIAS 80; BP_DIAS 88
[2021-10-20 12:00] VITALS: BP 154/95
[2021-10-20] MEDS ORDERED: NALOXONE HCL 0.4MG/ML VIAL IV PRN (12:00)
[2021-10-20] MEDS: HYDROCODONE/ACETAMINOPHEN 5/325MG TABLET PO PRN ×2 (12:14→18:15)
[2021-10-20] MEDS ORDERED: *PATIENT'S OWN MEDICATION STORAGE XX SCH (12:45)
[2021-10-20 16:00] VITALS: BP 151/79
[2021-10-20] MEDS ORDERED: IPRATROPIUM/ALBUTEROL 0.5-3(2.5)MG/3ML NEB HHN PRN (17:00)
[2021-10-20] MEDS ORDERED: ZOLPIDEM TARTRATE 5MG TABLET PO PRN (17:00)
[2021-10-20] MEDS ORDERED: MAGNESIUM/ALUMINUM HYDROXIDE/SIMETHICONE 30ML UDC PO PRN (17:00)
[2021-10-20] MEDS ORDERED: CLONIDINE 0.1MG TABLET PO PRN (17:00)
[2021-10-20] MEDS ORDERED: ACETAMINOPHEN 325MG TABLET PO PRN ×2 (17:00)
[2021-10-20] MEDS ORDERED: LORAZEPAM 0.5MG TABLET PO PRN (17:00)
[2021-10-20] MEDS ORDERED: DIPHENHYDRAMINE 50MG/ML VIAL IV PRN (17:00)
[2021-10-20] MEDS: ENOXAPARIN 40MG/0.4ML SYR SUBCUT SCH (18:08)
[2021-10-20 20:00] VITALS: BP 157/88
[2021-10-20] MEDS: HYDRALAZINE HCL 50MG TABLET PO SCH (22:08)
[2021-10-20] MEDS: LISINOPRIL 20MG TABLET PO SCH (22:09)
[2021-10-20] MEDS: ATORVASTATIN CALCIUM 40MG TABLET PO SCH (22:09)
[2021-10-20] MEDS: QUETIAPINE FUMARATE 50MG TABLET PO SCH (22:10)
[2021-10-20] MEDS: AMLODIPINE 5MG TABLET PO SCH (22:10)
[2021-10-20] MEDS: SODIUM CHLORIDE 0.9% INJ 3ML FLUSH IVF SCH (22:11)
[2021-10-21 00:03] VITALS: BP 162/91
[2021-10-21 04:00] VITALS: BP 143/71
[2021-10-21] MEDS: HYDRALAZINE HCL 50MG TABLET PO SCH ×3 (05:16→21:27)
[2021-10-21] MEDS: SODIUM CHLORIDE 0.9% INJ 3ML FLUSH IVF SCH ×3 (05:17→21:27)
[2021-10-21] MEDS: HYDROCODONE/ACETAMINOPHEN 5/325MG TABLET PO PRN ×2 (05:17→14:03)
[2021-10-21 08:00] VITALS: BP 111/70
[2021-10-21] MEDS: SPIRONOLACTONE 25MG TABLET PO SCH (08:38)
[2021-10-21] MEDS: ASPIRIN 81MG EC TABLET PO SCH (08:38)
[2021-10-21] MEDS: AMLODIPINE 5MG TABLET PO SCH ×2 (08:38→21:26)
[2021-10-21] MEDS: LISINOPRIL 20MG TABLET PO SCH ×2 (08:38→21:00)
[2021-10-21 16:00] VITALS: BP 151/85
[2021-10-21] MEDS: ENOXAPARIN 40MG/0.4ML SYR SUBCUT SCH (18:32)
[2021-10-21 20:00] VITALS: BP 117/80
[2021-10-21] MEDS: ATORVASTATIN CALCIUM 40MG TABLET PO SCH (21:24)
[2021-10-21] MEDS: QUETIAPINE FUMARATE 50MG TABLET PO SCH (21:24)
[2021-10-22] VITALS: BP 128/84
[2021-10-22 04:00] VITALS: BP 126/80
[2021-10-22] MEDS: HYDRALAZINE HCL 50MG TABLET PO SCH ×3 (05:40→22:21)
[2021-10-22] MEDS: SODIUM CHLORIDE 0.9% INJ 3ML FLUSH IVF SCH ×3 (05:40→22:21)
[2021-10-22] MEDS: HYDROCODONE/ACETAMINOPHEN 5/325MG TABLET PO PRN ×2 (05:57→18:04)
[2021-10-22 08:28] VITALS: BP 124/76
[2021-10-22] MEDS: AMLODIPINE 5MG TABLET PO SCH ×2 (08:43→22:19)
[2021-10-22] MEDS: SPIRONOLACTONE 25MG TABLET PO SCH (08:43)
[2021-10-22] MEDS: ASPIRIN 81MG EC TABLET PO SCH (08:43)
[2021-10-22] MEDS: LISINOPRIL 20MG TABLET PO SCH ×2 (08:43→22:20)
[2021-10-22] MEDS ORDERED: MAGNESIUM CITRATE 300ML SOLUTION PO NR (12:00)
[2021-10-22 12:23] VITALS: BP 121/77
[2021-10-22 16:00] VITALS: BP 128/82
[2021-10-22] MEDS: ENOXAPARIN 40MG/0.4ML SYR SUBCUT SCH (18:03)
[2021-10-22 20:00] VITALS: BP 137/83
[2021-10-22] MEDS: ATORVASTATIN CALCIUM 40MG TABLET PO SCH (22:18)
[2021-10-22] MEDS: QUETIAPINE FUMARATE 50MG TABLET PO SCH (22:18)
[2021-10-23] VITALS: BP 104/56
[2021-10-23 04:00] VITALS: BP 132/92
[2021-10-23] MEDS: HYDROCODONE/ACETAMINOPHEN 5/325MG TABLET PO PRN ×3 (04:31→20:32)
[2021-10-23] MEDS: SODIUM CHLORIDE 0.9% INJ 3ML FLUSH IVF SCH ×3 (05:45→21:53)
[2021-10-23] MEDS: HYDRALAZINE HCL 50MG TABLET PO SCH ×3 (05:45→21:52)
[2021-10-23 08:00] VITALS: BP 130/86
[2021-10-23] MEDS: LISINOPRIL 20MG TABLET PO SCH ×2 (09:12→20:33)
[2021-10-23] MEDS: ASPIRIN 81MG EC TABLET PO SCH (09:12)
[2021-10-23] MEDS: AMLODIPINE 5MG TABLET PO SCH ×2 (09:13→20:34)
[2021-10-23] MEDS: SPIRONOLACTONE 25MG TABLET PO SCH (09:13)
[2021-10-23 12:00] VITALS: BP 116/72
[2021-10-23 16:00] VITALS: BP 126/84
[2021-10-23] MEDS ORDERED: MAGNESIUM CITRATE 300ML SOLUTION PO NR ×2 (18:00→21:00)
[2021-10-23] MEDS: ENOXAPARIN 40MG/0.4ML SYR SUBCUT SCH (18:00)
[2021-10-23 20:13] VITALS: BP 118/79
[2021-10-23] MEDS: ATORVASTATIN CALCIUM 40MG TABLET PO SCH (20:32)
[2021-10-23] MEDS: QUETIAPINE FUMARATE 50MG TABLET PO SCH (20:33)
[2021-10-24] VITALS: BP 128/77
[2021-10-24 04:32] VITALS: BP 120/62
[2021-10-24 06:33] LABS: BASOPHILS % 0.4 % (0.0-2.0); EOSINOPHILS % 1.5 % (0.0-5.0); HEMATOCRIT. 45.6 % (36.0-48.0); HEMOGLOBIN. 14.4 g/dL (12.0-16.0); MEAN CORPUSCULAR HEMOGLOBIN 26.2 pg (28.0-32.0); MEAN CORPUSCULAR VOLUME 82.9 fL (81.0-99.0); MEAN PLATELET VOLUME 9.1 fl (7.4-10.4); MONOCYTES % 12.4 % (2.0-8.0); NEUTROPHILS % 63.7 % (40.0-76.0); PLATELET 190 x1000/uL (130-400); RED CELL DISTRIBUTION WIDTH 18.4 % (11.6-14.6)
[2021-10-24] MEDS: HYDRALAZINE HCL 50MG TABLET PO SCH ×3 (06:45→22:00)
[2021-10-24] MEDS: SODIUM CHLORIDE 0.9% INJ 3ML FLUSH IVF SCH ×2 (06:45→14:00)
[2021-10-24] MEDS: HYDROCODONE/ACETAMINOPHEN 5/325MG TABLET PO PRN (06:51)
[2021-10-24 08:00] VITALS: BP 125/75
[2021-10-24] MEDS: ASPIRIN 81MG EC TABLET PO SCH (09:00)
[2021-10-24] MEDS ORDERED: POLYMYXIN B SULFATE 500000 UNITS/VIAL ONE (09:23)
[2021-10-24] MEDS ORDERED: BUPIVACAINE HCL/PF 0.5% (5MG/ML) 30ML ONE (09:24)
[2021-10-24] MEDS: AMLODIPINE 5MG TABLET PO SCH ×2 (10:14→21:00)
[2021-10-24] MEDS: SPIRONOLACTONE 25MG TABLET PO SCH (10:15)
[2021-10-24] MEDS: LISINOPRIL 20MG TABLET PO SCH ×2 (10:15→21:00)
[2021-10-24] MEDS ORDERED: ONDANSETRON HCL 4MG/2ML INJ IV PRN ×2 (11:45→13:00)
[2021-10-24] MEDS ORDERED: PROPOFOL 200MG/20ML VIAL IV ONE (12:03)
[2021-10-24] MEDS ORDERED: MIDAZOLAM HCL 2 MG/2 ML VIAL ONE (12:05)
[2021-10-24] MEDS ORDERED: LIDOCAINE HCL 1% 20ML VIAL (Pyxis) INJ ONE (12:05)
[2021-10-24] MEDS ORDERED: DEXAMETHASONE 4MG/ML 1ML VIAL ONE (12:06)
[2021-10-24] MEDS ORDERED: FENTANYL CITRATE/PF 50MCG/ML 2ML VIAL ONE (12:06)
[2021-10-24] MEDS ORDERED: ONDANSETRON HCL 4MG/2ML INJ ONE (12:06)
[2021-10-24] MEDS ORDERED: CEFAZOLIN SODIUM 1000MG/VIAL ONE (12:06)
[2021-10-24] MEDS ORDERED: ATROPINE SULFATE 0.4MG/ML VIAL IV PRN (13:00)
[2021-10-24] MEDS ORDERED: FENTANYL CITRATE/PF 50MCG/ML 2ML VIAL IV PRN (13:00)
[2021-10-24] MEDS ORDERED: LACTATED RINGERS 1,000 ML IV SCH (13:15)
[2021-10-24] MEDS ORDERED: BUPIVACAINE HCL 0.5% 125 ML in ON-Q PUMP (PM012=P100X2) IR SCH (13:30)
[2021-10-24] MEDS ORDERED: IPRATROPIUM/ALBUTEROL 0.5-3(2.5)MG/3ML NEB HHN NR (13:30)
[2021-10-24] MEDS: HYDROMORPHONE HCL/PF 2MG/ML CPJ IV PRN ×2 (14:22→14:38)
[2021-10-24 18:00] VITALS: BP 134/72
[2021-10-24 20:00] VITALS: BP 107/69
[2021-10-24] MEDS: METRONIDAZOLE 500 MG PREMIX 100 ML IV SCH (21:35)
[2021-10-24] MEDS: MORPHINE SULFATE 2 MG/ML CPJ (NOT FOR IM USE) IV PRN (22:41)
[2021-10-24] MEDS ORDERED: IPRATROPIUM/ALBUTEROL 0.5-3(2.5)MG/3ML NEB HHN PRN (22:45)
[2021-10-24] MEDS: DEXT 5%/0.45% NACL KCL 20MEQ/L 1,000 ML IV SCH (22:45)
[2021-10-24] MEDS: CEFAZOLIN 1000MG PREMIX 50 ML IV SCH (22:45)
[2021-10-24] MEDS: QUETIAPINE FUMARATE 50MG TABLET PO SCH (22:46)
[2021-10-24] MEDS: ATORVASTATIN CALCIUM 40MG TABLET PO SCH (22:46)
[2021-10-24] MEDS: FUROSEMIDE 40MG/4ML VIAL IVP SCH (23:34)
[2021-10-25] VITALS (10 sets, daily range): BP systolic 106–131; BP diastolic 50–73
[2021-10-25] MEDS: MORPHINE SULFATE 2 MG/ML CPJ (NOT FOR IM USE) IV PRN ×2 (02:58→11:00)
[2021-10-25] MEDS: DEXT 5%/0.45% NACL KCL 20MEQ/L 1,000 ML IV SCH ×2 (03:11→13:13)
[2021-10-25] MEDS: SODIUM CHLORIDE 0.9% INJ 3ML FLUSH IVF SCH ×4 (03:12→21:39)
[2021-10-25] MEDS: HYDRALAZINE HCL 50MG TABLET PO SCH ×3 (06:00→22:00)
[2021-10-25] MEDS: METRONIDAZOLE 500 MG PREMIX 100 ML IV SCH ×2 (06:13→16:40)
[2021-10-25] MEDS: CEFAZOLIN 1000MG PREMIX 50 ML IV SCH ×2 (06:13→16:39)
[2021-10-25] MEDS: ONDANSETRON HCL 4MG/2ML INJ IV PRN ×2 (07:15→09:21)
[2021-10-25] MEDS: LISINOPRIL 20MG TABLET PO SCH ×2 (09:00→21:38)
[2021-10-25] MEDS: AMLODIPINE 5MG TABLET PO SCH ×2 (09:00→21:38)
[2021-10-25] MEDS: ASPIRIN 81MG EC TABLET PO SCH (09:00)
[2021-10-25] MEDS: SPIRONOLACTONE 25MG TABLET PO SCH (09:00)
[2021-10-25] MEDS: FUROSEMIDE 40MG/4ML VIAL IVP SCH (10:06)
[2021-10-25] MEDS: PANTOPRAZOLE SODIUM 40 MG/VIAL IV SCH (10:59)
[2021-10-25] MEDS: ATORVASTATIN CALCIUM 40MG TABLET PO SCH (21:38)
[2021-10-25] MEDS: QUETIAPINE FUMARATE 50MG TABLET PO SCH (21:38)
[2021-10-26] VITALS (16 sets, daily range): BP systolic 83–135; BP diastolic 46–79
[2021-10-26] MEDS ORDERED: PANTOPRAZOLE SODIUM 40 MG/VIAL IV SCH (02:00)
[2021-10-26] MEDS: DEXT 5%/0.45% NACL KCL 20MEQ/L 1,000 ML IV SCH (02:07)
[2021-10-26] MEDS: HYDRALAZINE HCL 50MG TABLET PO SCH ×3 (05:28→22:03)
[2021-10-26] MEDS: SODIUM CHLORIDE 0.9% INJ 3ML FLUSH IVF SCH ×3 (05:31→22:02)
[2021-10-26 06:30] LABS: CHLORIDE 104 mEq/L (98-107)
[2021-10-26] MEDS: DEXT 5%/0.45% NACL 1000ML 1,000 ML IV SCH (08:45)
[2021-10-26] MEDS: LISINOPRIL 20MG TABLET PO SCH ×2 (09:00→22:03)
[2021-10-26] MEDS: AMLODIPINE 5MG TABLET PO SCH (09:00)
[2021-10-26 09:09] LABS: HEMATOCRIT. 24.7 % (36.0-48.0); MEAN CORPUSCULAR HEMOGLOBIN 25.9 pg (28.0-32.0); MEAN CORPUSCULAR VOLUME 84.5 fL (81.0-99.0); MEAN PLATELET VOLUME 9.1 fl (7.4-10.4); PLATELET 160 x1000/uL (130-400); RED BLOOD CELL COUNT 2.92 mill/uL (4.2-5.4); RED CELL DISTRIBUTION WIDTH 18.7 % (11.6-14.6)
[2021-10-26 09:21] LABS: HEMOGLOBIN. 7.6 g/dL (12.0-16.0)
[2021-10-26] MEDS: SPIRONOLACTONE 25MG TABLET PO SCH (09:44)
[2021-10-26] MEDS: ASPIRIN 81MG EC TABLET PO SCH (09:44)
[2021-10-26] MEDS: FUROSEMIDE 40MG/4ML VIAL IVP SCH (09:44)
[2021-10-26] MEDS: PANTOPRAZOLE SODIUM 40 MG/VIAL IV SCH (09:44)
[2021-10-26 10:48] LABS: PLATELET ESTIMATE NORMAL
[2021-10-26 13:12] LABS: HEMATOCRIT. 24.8 % (36.0-48.0); HEMOGLOBIN. 7.7 g/dL (12.0-16.0); MEAN CORPUSCULAR HEMOGLOBIN 26.1 pg (28.0-32.0); MEAN CORPUSCULAR VOLUME 84.2 fL (81.0-99.0); MEAN PLATELET VOLUME 9.1 fl (7.4-10.4); PLATELET 171 x1000/uL (130-400); RED BLOOD CELL COUNT 2.95 mill/uL (4.2-5.4); RED CELL DISTRIBUTION WIDTH 18.8 % (11.6-14.6)
[2021-10-26 13:43] LABS: PLATELET ESTIMATE NORMAL
[2021-10-26] MEDS: DIPHENHYDRAMINE 50MG/ML VIAL IV PRN (16:31)
[2021-10-26] MEDS: QUETIAPINE FUMARATE 50MG TABLET PO SCH (22:03)
[2021-10-26] MEDS: ATORVASTATIN CALCIUM 40MG TABLET PO SCH (22:03)
[2021-10-27] VITALS (12 sets, daily range): BP systolic 82–137; BP diastolic 49–72
[2021-10-27] MEDS: DEXT 5%/0.45% NACL 1000ML 1,000 ML IV SCH (04:48)
[2021-10-27] MEDS: HYDRALAZINE HCL 50MG TABLET PO SCH ×3 (06:00→22:00)
[2021-10-27] MEDS: SODIUM CHLORIDE 0.9% INJ 3ML FLUSH IVF SCH ×3 (06:31→22:15)
[2021-10-27 07:01] LABS: HEMOGLOBIN. 8.7 g/dL (12.0-16.0); MEAN CORPUSCULAR HEMOGLOBIN 26.8 pg (28.0-32.0); MEAN CORPUSCULAR VOLUME 83.6 fL (81.0-99.0); MEAN PLATELET VOLUME 9.3 fl (7.4-10.4); PLATELET 154 x1000/uL (130-400); RED BLOOD CELL COUNT 3.23 mill/uL (4.2-5.4); RED CELL DISTRIBUTION WIDTH 18.4 % (11.6-14.6)
[2021-10-27] MEDS: PANTOPRAZOLE SODIUM 40 MG/VIAL IV SCH (08:51)
[2021-10-27] MEDS: FUROSEMIDE 40MG/4ML VIAL IVP SCH (08:51)
[2021-10-27] MEDS: ASPIRIN 81MG EC TABLET PO SCH (08:52)
[2021-10-27] MEDS ORDERED: AMLODIPINE 2.5MG TABLET PO SCH (09:00)
[2021-10-27 09:24] LABS: PLATELET ESTIMATE NORMAL
[2021-10-27] MEDS: DIPHENHYDRAMINE 50MG/ML VIAL IV PRN (14:13)
[2021-10-27] MEDS: ATORVASTATIN CALCIUM 40MG TABLET PO SCH (20:19)
[2021-10-27] MEDS: QUETIAPINE FUMARATE 50MG TABLET PO SCH (20:19)
[2021-10-27] MEDS: MORPHINE SULFATE 2 MG/ML CPJ (NOT FOR IM USE) IV PRN (20:20)
[2021-10-28] VITALS (9 sets, daily range): BP systolic 97–147; BP diastolic 17–84
[2021-10-28] MEDS: DEXT 5%/0.45% NACL 1000ML 1,000 ML IV SCH (01:19)
[2021-10-28] MEDS: SODIUM CHLORIDE 0.9% INJ 3ML FLUSH IVF SCH ×3 (05:22→21:00)
[2021-10-28] MEDS: MORPHINE SULFATE 2 MG/ML CPJ (NOT FOR IM USE) IV PRN ×2 (05:22→20:01)
[2021-10-28 06:09] LABS: BASOPHILS % 0.6 % (0.0-2.0); EOSINOPHILS % 1.7 % (0.0-5.0); HEMOGLOBIN. 8.8 g/dL (12.0-16.0); LYMPHOCYTES % 9.4 % (20.0-50.0); MEAN CORPUSCULAR HEMOGLOBIN 26.2 pg (28.0-32.0); MEAN CORPUSCULAR VOLUME 83.7 fL (81.0-99.0); MONOCYTES % 12.3 % (2.0-8.0); PLATELET 213 x1000/uL (130-400); RED BLOOD CELL COUNT 3.35 mill/uL (4.2-5.4)
[2021-10-28] MEDS: HYDRALAZINE HCL 50MG TABLET PO SCH ×3 (06:37→21:00)
[2021-10-28] MEDS: PANTOPRAZOLE SODIUM 40 MG/VIAL IV SCH (09:41)
[2021-10-28] MEDS: ASPIRIN 81MG EC TABLET PO SCH (09:41)
[2021-10-28] MEDS: FUROSEMIDE 40MG/4ML VIAL IVP SCH (09:41)
[2021-10-28] MEDS: DIPHENHYDRAMINE 50MG CAPSULE PO PRN (09:41)
[2021-10-28] MEDS: MORPHINE SULFATE 4 MG/ML CPJ (NOT FOR IM USE) IV PRN ×3 (12:36→22:09)
[2021-10-28] MEDS ORDERED: BISMUTH SUBSALICYLATE 262 MG/15 ML-120ML BOTTLE PO NR (15:30)
[2021-10-28] MEDS ORDERED: MAGNESIUM/ALUMINUM HYDROXIDE/SIMETHICONE 30ML UDC PO PRN (15:45)
[2021-10-28] MEDS: DIPHENHYDRAMINE 50MG/ML VIAL IV PRN (20:01)
[2021-10-28] MEDS: QUETIAPINE FUMARATE 50MG TABLET PO SCH (20:52)
[2021-10-28] MEDS: ATORVASTATIN CALCIUM 40MG TABLET PO SCH (20:53)
[2021-10-28 21:37] LABS: INR 1.2; PROTHROMBIN TIME 12.7 sec (9.6-11.0)
[2021-10-29] MEDS: MORPHINE SULFATE 4 MG/ML CPJ (NOT FOR IM USE) IV PRN ×2 (01:14→05:04)
[2021-10-29 04:00] VITALS: BP 113/75
[2021-10-29] MEDS: HYDRALAZINE HCL 50MG TABLET PO SCH ×3 (05:03→20:30)
[2021-10-29] MEDS: SODIUM CHLORIDE 0.9% INJ 3ML FLUSH IVF SCH ×3 (05:43→20:37)
[2021-10-29 06:41] LABS: BASOPHILS % 0.5 % (0.0-2.0); EOSINOPHILS % 1.6 % (0.0-5.0); HEMATOCRIT. 31.5 % (36.0-48.0); HEMOGLOBIN. 10.1 g/dL (12.0-16.0); LYMPHOCYTES % 9.3 % (20.0-50.0); MEAN CORPUSCULAR HEMOGLOBIN 26.5 pg (28.0-32.0); MEAN CORPUSCULAR VOLUME 82.3 fL (81.0-99.0); MEAN PLATELET VOLUME 8.7 fl (7.4-10.4); NEUTROPHILS % 77.6 % (40.0-76.0); PLATELET 289 x1000/uL (130-400); RED BLOOD CELL COUNT 3.83 mill/uL (4.2-5.4); RED CELL DISTRIBUTION WIDTH 17.6 % (11.6-14.6)
[2021-10-29 08:00] VITALS: BP 122/61
[2021-10-29] MEDS: MORPHINE SULFATE 2 MG/ML CPJ (NOT FOR IM USE) IV PRN (09:15)
[2021-10-29] MEDS: FUROSEMIDE 40MG/4ML VIAL IVP SCH (09:15)
[2021-10-29] MEDS: PANTOPRAZOLE SODIUM 40 MG/VIAL IV SCH (09:15)
[2021-10-29 12:00] VITALS: BP 115/60
[2021-10-29 13:21] VITALS: BP 122/74
[2021-10-29] MEDS: HYDROCODONE/ACETAMINOPHEN 5/325MG TABLET PO PRN ×2 (14:42→20:31)
[2021-10-29 16:00] VITALS: BP 120/70
[2021-10-29 20:00] VITALS: BP 123/81
[2021-10-29] MEDS: OMEPRAZOLE 20MG CAPSULE EXTENDED RELEASE PO SCH (20:29)
[2021-10-29] MEDS: ATORVASTATIN CALCIUM 40MG TABLET PO SCH (20:37)
[2021-10-29] MEDS: QUETIAPINE FUMARATE 50MG TABLET PO SCH (20:37)
[2021-10-30] VITALS: BP 90/52
[2021-10-30 00:45] VITALS: BP 95/55
[2021-10-30 04:00] VITALS: BP 97/49
[2021-10-30] MEDS: HYDROCODONE/ACETAMINOPHEN 5/325MG TABLET PO PRN ×2 (04:16→10:03)
[2021-10-30] MEDS: HYDRALAZINE HCL 50MG TABLET PO SCH (05:36)
[2021-10-30] MEDS: SODIUM CHLORIDE 0.9% INJ 3ML FLUSH IVF SCH (05:36)
[2021-10-30 08:00] VITALS: BP 99/57
[2021-10-30] MEDS: OMEPRAZOLE 20MG CAPSULE EXTENDED RELEASE PO SCH (08:13)
[2021-10-30] MEDS: FUROSEMIDE 40MG/4ML VIAL IVP SCH (08:13)
[2021-10-30] MEDS: DIPHENHYDRAMINE 50MG CAPSULE PO PRN (10:03)
[2021-10-30 11:17] VITALS: BP 99/57
== END 2021-10-30 12:00 | disposition home or self-care (01) | DRG 231 ==
LOC: ER 19:47 → MICUSO 23:33 → 6EST 10-20 04:09 → 5EST 10-25 08:12 → 7WST 10-29 12:30
PROVIDERS: ADMIT Internal Medicine; ATTEND Internal Medicine
PROC: 0DBN0ZZ Excision of Sigmoid Colon, Open Approach (ICD-10-PCS; principal; 2021-10-24)
PROC: 0DBP0ZZ Excision of Rectum, Open Approach (ICD-10-PCS; 2021-10-24)
PROC: 30233N1 Transfusion of Nonautologous Red Blood Cells into Peripheral Vein, Percutaneous Approach (ICD-10-PCS; 2021-10-26)
DX: K62.3 Rectal prolapse (principal); E43 Unspecified severe protein-calorie malnutrition; C78.01 Secondary malignant neoplasm of right lung; I13.0 Hypertensive heart and chronic kidney disease with heart failure and stage 1 through stage 4 chronic kidney disease, or unspecified chronic kidney disease; R18.8 Other ascites; E88.09 Other disorders of plasma-protein metabolism, not elsewhere classified; I31.3 Pericardial effusion (noninflammatory); I50.22 Chronic systolic (congestive) heart failure; J90 Pleural effusion, not elsewhere classified; C50.919 Malignant neoplasm of unspecified site of unspecified female breast; D64.9 Anemia, unspecified; J44.9 Chronic obstructive pulmonary disease, unspecified; N18.9 Chronic kidney disease, unspecified; F99 Mental disorder, not otherwise specified; Z68.22 Body mass index [BMI] 22.0-22.9, adult
CPT/HCPCS: 36415; 74176; 76705; 80048; 80053; 83605; 83735; 84484; 85025; 86850; 86900; 86920; 87426; 93005; 94640; 94664; 97162; 97530; 99291; C9113; J0690; J1100; J1170; J1200; J1650; J1940; J2250; J2270; J2405; J2704; J3010; J3490; J7030; P9016; Q0163

== ENCOUNTER 2021-11-06 17:00 | Inpatient (IN) | payer MEDICAID ==
[~2021-11-06] VITALS: Ht 167.6 cm; Wt 64.4 kg
[2021-11-06] MEDS ORDERED: HYDROCODONE/ACETAMINOPHEN 10/325MG TABLET PO ONE (18:15)
[2021-11-06 19:13] LABS: BASOPHILS % 0.5 % (0.0-2.0); EOSINOPHILS % 1.7 % (0.0-5.0); HEMATOCRIT. 42.3 % (36.0-48.0); MEAN CORPUSCULAR HEMOGLOBIN 26.3 pg (28.0-32.0); MEAN CORPUSCULAR VOLUME 85.8 fL (81.0-99.0); MEAN PLATELET VOLUME 8.2 fl (7.4-10.4); MONOCYTES % 7.7 % (2.0-8.0); NEUTROPHILS % 80.1 % (40.0-76.0); PLATELET 326 x1000/uL (130-400); RED BLOOD CELL COUNT 4.93 mill/uL (4.2-5.4); RED CELL DISTRIBUTION WIDTH 20.9 % (11.6-14.6)
[2021-11-06 19:20] LABS: CHLORIDE 109 mEq/L (98-107)
[2021-11-06 19:36] LABS: *AMPHETAMINES SCREEN URINE NEGATIVE (NEGATIVE); *BARBITURATES SCREEN URINE NEGATIVE (NEGATIVE); *BENZODIAZEPINES SCREEN URINE NEGATIVE (NEGATIVE); *COCAINE SCREEN URINE PRESUMTIVE POSITIVE (NEGATIVE); CANNABINOID URINE SCREEN NEGATIVE (NEGATIVE); METHADONE URINE SCREEN NEGATIVE (NEGATIVE); OPIATES URINE SCREEN NEGATIVE (NEGATIVE); PHENCYCLIDINE URINE SCREEN NEGATIVE (NEGATIVE)
[2021-11-06] MEDS ORDERED: ASPIRIN 81MG TABLET PO ONE (19:45)
[2021-11-06] MEDS ORDERED: LORAZEPAM 1MG TABLET PO ONE (19:45)
[2021-11-06] MEDS ORDERED: FUROSEMIDE 40MG/4ML VIAL IVP ONE (19:45)
[2021-11-06 19:46] LABS: ETHANOL BLOOD < 10 mg/dL
[2021-11-06] MEDS ORDERED: LORAZEPAM 1MG TABLET PO NR (19:46)
[2021-11-06 19:51] LABS: CLARITY URINE CLOUDY (CLEAR); COLOR URINE YELLOW (YELLOW); KETONES URINE NEGATIVE (NEGATIVE); LEUKOCYTE ESTERASE URINE 1+ (NEGATIVE); NITRITE URINE NEGATIVE (NEGATIVE); OCCULT BLOOD URINE 2+ (NEGATIVE); PH URINE 6.5 (4.5-8.0); PROTEIN URINE 2+ (NEGATIVE); SPECIFIC GRAVITY URINE 1.015 (1.005-1.030)
[2021-11-06] MEDS ORDERED: CEFTRIAXONE 1 G PREMIX 50 ML IV ONE (20:45)
[2021-11-06] MEDS ORDERED: ACETAMINOPHEN 325MG TABLET PO PRN (21:15)
[2021-11-06] MEDS ORDERED: ONDANSETRON HCL 4MG/2ML INJ IV PRN (21:15)
[2021-11-06] MEDS ORDERED: CLONIDINE 0.1MG TABLET PO PRN (21:15)
[2021-11-06] MEDS ORDERED: IPRATROPIUM/ALBUTEROL 0.5-3(2.5)MG/3ML NEB HHN PRN (21:15)
[2021-11-06] MEDS ORDERED: ACETAMINOPHEN 650MG SUPP PR PRN (21:15)
[2021-11-06] MEDS: AMLODIPINE 10MG TABLET PO SCH (22:28)
[2021-11-06] MEDS: FUROSEMIDE 40MG/4ML VIAL IV SCH (22:52)
[2021-11-06] MEDS: HYDROCODONE/ACETAMINOPHEN 5/325MG TABLET PO PRN (22:56)
[2021-11-07] VITALS (7 sets, daily range): BP systolic 128–144; BP diastolic 67–89
[2021-11-07] MEDS: HYDROCODONE/ACETAMINOPHEN 5/325MG TABLET PO PRN ×2 (04:57→09:13)
[2021-11-07] MEDS ORDERED: NALOXONE HCL 0.4MG/ML VIAL IV PRN (09:15)
[2021-11-07] MEDS ORDERED: DEXTROSE 50% WATER 50ML SYRINGE IV PRN (09:15)
[2021-11-07 10:02] LABS: HEMATOCRIT. 38.5 % (36.0-48.0); HEMOGLOBIN. 12.1 g/dL (12.0-16.0); MEAN CORPUSCULAR HEMOGLOBIN 26.5 pg (28.0-32.0); MEAN CORPUSCULAR VOLUME 84.7 fL (81.0-99.0); MEAN PLATELET VOLUME 7.9 fl (7.4-10.4); PLATELET 283 x1000/uL (130-400); RED BLOOD CELL COUNT 4.55 mill/uL (4.2-5.4); RED CELL DISTRIBUTION WIDTH 20.5 % (11.6-14.6)
[2021-11-07] MEDS: FUROSEMIDE 40MG/4ML VIAL IV SCH ×2 (10:03→17:03)
[2021-11-07] MEDS: AMLODIPINE 10MG TABLET PO SCH (10:03)
[2021-11-07 10:09] LABS: CHLORIDE 107 mEq/L (98-107)
[2021-11-07 10:26] LABS: CREATINE KINASE 49 IU/L (26-192); HDL CHOLESTEROL 37 mg/dL (40-59); LDL CHOLESTEROL 43 mg/dL (5-100)
[2021-11-07] MEDS: BLOOD SUGAR DIAGNOSTIC STRIP TEST SCH ×3 (11:33→21:00)
[2021-11-07] MEDS ORDERED: DIPHENHYDRAMINE 25MG CAPSULE PO NR (12:15)
[2021-11-07] MEDS: INSULIN LISPRO 100 UNITS/ML SUBCUT SCH ×2 (12:25→21:00)
[2021-11-07] MEDS: MORPHINE SULFATE 2 MG/ML CPJ (NOT FOR IM USE) IV PRN ×2 (12:29→19:59)
[2021-11-07] MEDS: ENOXAPARIN 40MG/0.4ML SYR SUBCUT SCH (14:06)
[2021-11-07] MEDS: LOSARTAN POTASSIUM 25 MG TABLET PO SCH (16:08)
[2021-11-07 16:34] LABS: PLATELET ESTIMATE NORMAL
[2021-11-07] MEDS: IPRATROPIUM/ALBUTEROL 0.5-3(2.5)MG/3ML NEB HHN SCH ×2 (16:46→21:14)
[2021-11-07] MEDS: DILTIAZEM HCL 30MG TABLET PO SCH ×2 (17:03→22:42)
[2021-11-07] MEDS: BUDESONIDE 0.5MG/2ML NEB HHN SCH (21:14)
[2021-11-07] MEDS: SILDENAFIL CITRATE 20MG TABLET PO SCH (22:43)
[2021-11-08] VITALS: BP 123/79
[2021-11-08] MEDS: IPRATROPIUM/ALBUTEROL 0.5-3(2.5)MG/3ML NEB HHN SCH ×4 (01:37→20:25)
[2021-11-08 04:00] VITALS: BP 113/92
[2021-11-08] MEDS: MAGNESIUM/ALUMINUM HYDROXIDE/SIMETHICONE 30ML UDC PO PRN ×2 (05:51→19:32)
[2021-11-08] MEDS: SILDENAFIL CITRATE 20MG TABLET PO SCH ×3 (05:51→21:05)
[2021-11-08] MEDS: BLOOD SUGAR DIAGNOSTIC STRIP TEST SCH ×4 (05:56→21:00)
[2021-11-08 06:27] LABS: BASOPHILS % 0.3 % (0.0-2.0); EOSINOPHILS % 1.5 % (0.0-5.0); HEMATOCRIT. 36.8 % (36.0-48.0); HEMOGLOBIN. 11.8 g/dL (12.0-16.0); LYMPHOCYTES % 7.6 % (20.0-50.0); MEAN CORPUSCULAR HEMOGLOBIN 26.9 pg (28.0-32.0); MEAN CORPUSCULAR VOLUME 84.2 fL (81.0-99.0); MONOCYTES % 8.3 % (2.0-8.0); NEUTROPHILS % 82.3 % (40.0-76.0); PLATELET 290 x1000/uL (130-400); RED BLOOD CELL COUNT 4.37 mill/uL (4.2-5.4); RED CELL DISTRIBUTION WIDTH 20.4 % (11.6-14.6)
[2021-11-08] MEDS: INSULIN LISPRO 100 UNITS/ML SUBCUT SCH ×4 (07:37→21:00)
[2021-11-08] MEDS: BUDESONIDE 0.5MG/2ML NEB HHN SCH ×2 (07:50→20:25)
[2021-11-08 08:00] VITALS: BP 107/62
[2021-11-08] MEDS: FUROSEMIDE 40MG/4ML VIAL IV SCH ×2 (08:33→17:27)
[2021-11-08] MEDS: LOSARTAN POTASSIUM 25 MG TABLET PO SCH (08:34)
[2021-11-08] MEDS: DILTIAZEM HCL 30MG TABLET PO SCH ×4 (08:34→20:35)
[2021-11-08] MEDS: MORPHINE SULFATE 2 MG/ML CPJ (NOT FOR IM USE) IV PRN ×2 (10:08→19:32)
[2021-11-08 12:00] VITALS: BP 125/79
[2021-11-08] MEDS: ACETAMINOPHEN 325MG TABLET PO PRN ×2 (15:12→21:06)
[2021-11-08] MEDS: ENOXAPARIN 40MG/0.4ML SYR SUBCUT SCH (15:12)
[2021-11-08 16:00] VITALS: BP 119/60
[2021-11-08 20:27] VITALS: BP 107/65
[2021-11-09] MEDS: HYDROCODONE/ACETAMINOPHEN 5/325MG TABLET PO PRN ×2 (00:13→19:57)
[2021-11-09] MEDS: IPRATROPIUM/ALBUTEROL 0.5-3(2.5)MG/3ML NEB HHN SCH ×4 (01:02→21:33)
[2021-11-09 04:00] VITALS: BP 123/65
[2021-11-09] MEDS: ACETAMINOPHEN 325MG TABLET PO PRN ×2 (04:29→14:00)
[2021-11-09] MEDS: SILDENAFIL CITRATE 20MG TABLET PO SCH ×3 (05:39→21:35)
[2021-11-09] MEDS: INSULIN LISPRO 100 UNITS/ML SUBCUT SCH ×4 (05:54→21:00)
[2021-11-09] MEDS: BLOOD SUGAR DIAGNOSTIC STRIP TEST SCH ×4 (05:54→21:36)
[2021-11-09 08:00] VITALS: BP 117/70
[2021-11-09] MEDS: FUROSEMIDE 40MG/4ML VIAL IV SCH ×2 (08:42→16:22)
[2021-11-09] MEDS: LOSARTAN POTASSIUM 25 MG TABLET PO SCH (08:43)
[2021-11-09] MEDS: MORPHINE SULFATE 2 MG/ML CPJ (NOT FOR IM USE) IV PRN ×3 (08:43→22:56)
[2021-11-09] MEDS: DILTIAZEM HCL 30MG TABLET PO SCH ×4 (08:43→21:36)
[2021-11-09 09:40] LABS: BASOPHILS % 0.4 % (0.0-2.0); EOSINOPHILS % 3.5 % (0.0-5.0); HEMATOCRIT. 37.1 % (36.0-48.0); HEMOGLOBIN. 11.7 g/dL (12.0-16.0); LYMPHOCYTES % 11.5 % (20.0-50.0); MEAN CORPUSCULAR HEMOGLOBIN 26.9 pg (28.0-32.0); MEAN CORPUSCULAR VOLUME 84.9 fL (81.0-99.0); MEAN PLATELET VOLUME 8.7 fl (7.4-10.4); MONOCYTES % 9.8 % (2.0-8.0); NEUTROPHILS % 74.8 % (40.0-76.0); PLATELET 264 x1000/uL (130-400); RED BLOOD CELL COUNT 4.37 mill/uL (4.2-5.4); RED CELL DISTRIBUTION WIDTH 20.1 % (11.6-14.6)
[2021-11-09] MEDS: BUDESONIDE 0.5MG/2ML NEB HHN SCH ×2 (09:53→21:33)
[2021-11-09 12:00] VITALS: BP 101/58
[2021-11-09] MEDS: ENOXAPARIN 40MG/0.4ML SYR SUBCUT SCH ×2 (12:41→14:02)
[2021-11-09 16:00] VITALS: BP 112/72
[2021-11-09 20:00] VITALS: BP 118/69
[2021-11-10] MEDS: HYDROCODONE/ACETAMINOPHEN 5/325MG TABLET PO PRN (01:58)
[2021-11-10 04:00] VITALS: BP 107/63
[2021-11-10] MEDS: IPRATROPIUM/ALBUTEROL 0.5-3(2.5)MG/3ML NEB HHN SCH ×4 (04:21→14:31)
[2021-11-10] MEDS: SILDENAFIL CITRATE 20MG TABLET PO SCH ×3 (05:07→21:18)
[2021-11-10] MEDS: BLOOD SUGAR DIAGNOSTIC STRIP TEST SCH ×4 (06:12→21:19)
[2021-11-10] MEDS: MORPHINE SULFATE 2 MG/ML CPJ (NOT FOR IM USE) IV PRN ×3 (06:44→21:20)
[2021-11-10] MEDS: INSULIN LISPRO 100 UNITS/ML SUBCUT SCH ×4 (07:50→21:00)
[2021-11-10 08:00] VITALS: BP 118/78
[2021-11-10] MEDS: BUDESONIDE 0.5MG/2ML NEB HHN SCH ×2 (08:56→21:26)
[2021-11-10] MEDS: FUROSEMIDE 40MG/4ML VIAL IV SCH ×2 (09:21→17:00)
[2021-11-10] MEDS: DILTIAZEM HCL 30MG TABLET PO SCH ×4 (09:21→21:00)
[2021-11-10] MEDS: LOSARTAN POTASSIUM 25 MG TABLET PO SCH (09:21)
[2021-11-10 12:00] VITALS: BP 108/72
[2021-11-10] MEDS: ENOXAPARIN 40MG/0.4ML SYR SUBCUT SCH (13:23)
[2021-11-10] MEDS: DIPHENHYDRAMINE 50MG CAPSULE PO PRN (14:29)
[2021-11-10 16:00] VITALS: BP 122/75
[2021-11-10 20:00] VITALS: BP 107/63
[2021-11-10] MEDS: MAGNESIUM/ALUMINUM HYDROXIDE/SIMETHICONE 30ML UDC PO PRN (21:17)
[2021-11-10] MEDS: BUPROPION HCL 150MG TABLET XL 24HR PO SCH (21:18)
[2021-11-10] MEDS: QUETIAPINE FUMARATE 50MG TABLET PO SCH (21:18)
[2021-11-11] MEDS: IPRATROPIUM/ALBUTEROL 0.5-3(2.5)MG/3ML NEB HHN SCH ×3 (00:21→13:50)
[2021-11-11 05:30] VITALS: BP 91/45
[2021-11-11] MEDS: SILDENAFIL CITRATE 20MG TABLET PO SCH ×3 (06:00→21:01)
[2021-11-11] MEDS: MORPHINE SULFATE 2 MG/ML CPJ (NOT FOR IM USE) IV PRN ×2 (06:27→13:12)
[2021-11-11] MEDS: BLOOD SUGAR DIAGNOSTIC STRIP TEST SCH ×4 (07:40→20:25)
[2021-11-11] MEDS: INSULIN LISPRO 100 UNITS/ML SUBCUT SCH ×4 (08:10→20:25)
[2021-11-11 08:28] VITALS: BP 100/58
[2021-11-11] MEDS: DILTIAZEM HCL 30MG TABLET PO SCH ×4 (08:28→21:00)
[2021-11-11] MEDS: LOSARTAN POTASSIUM 25 MG TABLET PO SCH (08:29)
[2021-11-11] MEDS: QUETIAPINE FUMARATE 50MG TABLET PO SCH ×2 (08:30→21:03)
[2021-11-11] MEDS: DIPHENHYDRAMINE 50MG CAPSULE PO PRN ×2 (08:30→17:05)
[2021-11-11] MEDS: FUROSEMIDE 40MG/4ML VIAL IV SCH ×2 (08:30→17:05)
[2021-11-11] MEDS: BUPROPION HCL 150MG TABLET XL 24HR PO SCH (08:30)
[2021-11-11 12:00] VITALS: BP 108/62
[2021-11-11] MEDS: ENOXAPARIN 40MG/0.4ML SYR SUBCUT SCH (13:12)
[2021-11-11] MEDS: HYDROCODONE/ACETAMINOPHEN 5/325MG TABLET PO PRN ×2 (14:40→21:04)
[2021-11-11 16:00] VITALS: BP 122/91
[2021-11-11 20:00] VITALS: BP 90/58
[2021-11-12] VITALS (7 sets, daily range): BP systolic 99–122; BP diastolic 57–82
[2021-11-12] MEDS: MORPHINE SULFATE 2 MG/ML CPJ (NOT FOR IM USE) IV PRN ×2 (02:38→08:36)
[2021-11-12] MEDS: HYDROCODONE/ACETAMINOPHEN 5/325MG TABLET PO PRN ×4 (05:54→20:58)
[2021-11-12] MEDS: SILDENAFIL CITRATE 20MG TABLET PO SCH ×3 (06:00→21:00)
[2021-11-12] MEDS: BLOOD SUGAR DIAGNOSTIC STRIP TEST SCH ×4 (06:08→20:25)
[2021-11-12] MEDS: INSULIN LISPRO 100 UNITS/ML SUBCUT SCH ×4 (07:30→20:57)
[2021-11-12] MEDS: IPRATROPIUM/ALBUTEROL 0.5-3(2.5)MG/3ML NEB HHN SCH ×3 (08:08→21:39)
[2021-11-12] MEDS: FUROSEMIDE 40MG/4ML VIAL IV SCH ×2 (08:35→16:24)
[2021-11-12] MEDS: LOSARTAN POTASSIUM 25 MG TABLET PO SCH (08:37)
[2021-11-12] MEDS: DILTIAZEM HCL 30MG TABLET PO SCH ×4 (08:37→20:57)
[2021-11-12] MEDS: QUETIAPINE FUMARATE 50MG TABLET PO SCH ×2 (08:37→20:57)
[2021-11-12] MEDS: BUPROPION HCL 150MG TABLET XL 24HR PO SCH (08:37)
[2021-11-12] MEDS: DIPHENHYDRAMINE 50MG CAPSULE PO PRN ×2 (11:03→17:58)
[2021-11-12] MEDS: ENOXAPARIN 40MG/0.4ML SYR SUBCUT SCH ×2 (13:59→14:00)
[2021-11-12] MEDS ORDERED: NALOXONE HCL 0.4MG/ML VIAL IV PRN (14:00)
[2021-11-13] VITALS: BP 100/71
[2021-11-13] MEDS: IPRATROPIUM/ALBUTEROL 0.5-3(2.5)MG/3ML NEB HHN SCH ×4 (01:26→21:23)
[2021-11-13] MEDS: HYDROCODONE/ACETAMINOPHEN 5/325MG TABLET PO PRN ×4 (02:53→18:46)
[2021-11-13 04:00] VITALS: BP 106/67
[2021-11-13] MEDS: MAGNESIUM/ALUMINUM HYDROXIDE/SIMETHICONE 30ML UDC PO PRN (05:59)
[2021-11-13] MEDS: SILDENAFIL CITRATE 20MG TABLET PO SCH ×3 (05:59→20:17)
[2021-11-13] MEDS: BLOOD SUGAR DIAGNOSTIC STRIP TEST SCH ×4 (07:40→20:21)
[2021-11-13 08:00] VITALS: BP 113/54
[2021-11-13] MEDS: BUPROPION HCL 150MG TABLET XL 24HR PO SCH (09:48)
[2021-11-13] MEDS: QUETIAPINE FUMARATE 50MG TABLET PO SCH ×2 (09:48→20:17)
[2021-11-13] MEDS: FUROSEMIDE 40MG/4ML VIAL IV SCH ×2 (09:48→18:44)
[2021-11-13] MEDS: LOSARTAN POTASSIUM 25 MG TABLET PO SCH (09:49)
[2021-11-13] MEDS: DILTIAZEM HCL 30MG TABLET PO SCH ×4 (09:49→21:00)
[2021-11-13] MEDS: INSULIN LISPRO 100 UNITS/ML SUBCUT SCH ×4 (09:52→20:21)
[2021-11-13 12:00] VITALS: BP 122/56
[2021-11-13] MEDS: DIPHENHYDRAMINE 50MG CAPSULE PO PRN (13:47)
[2021-11-13] MEDS: ENOXAPARIN 40MG/0.4ML SYR SUBCUT SCH (14:44)
[2021-11-13 16:00] VITALS: BP 102/59
[2021-11-13 20:00] VITALS: BP 113/63
[2021-11-14 00:05] VITALS: BP 111/60
[2021-11-14] MEDS: IPRATROPIUM/ALBUTEROL 0.5-3(2.5)MG/3ML NEB HHN SCH ×4 (02:29→20:59)
[2021-11-14 04:01] VITALS: BP 102/69
[2021-11-14] MEDS: SILDENAFIL CITRATE 20MG TABLET PO SCH ×3 (05:17→22:27)
[2021-11-14] MEDS: BLOOD SUGAR DIAGNOSTIC STRIP TEST SCH ×4 (05:20→20:18)
[2021-11-14] MEDS: INSULIN LISPRO 100 UNITS/ML SUBCUT SCH ×4 (05:20→20:17)
[2021-11-14] MEDS: HYDROCODONE/ACETAMINOPHEN 5/325MG TABLET PO PRN ×4 (05:45→20:30)
[2021-11-14 08:00] VITALS: BP 107/73
[2021-11-14] MEDS: DILTIAZEM HCL 30MG TABLET PO SCH ×4 (08:51→20:31)
[2021-11-14] MEDS: LOSARTAN POTASSIUM 25 MG TABLET PO SCH (08:52)
[2021-11-14] MEDS: QUETIAPINE FUMARATE 50MG TABLET PO SCH ×2 (08:59→20:31)
[2021-11-14] MEDS: FUROSEMIDE 40MG/4ML VIAL IV SCH (08:59)
[2021-11-14] MEDS: BUPROPION HCL 150MG TABLET XL 24HR PO SCH (08:59)
[2021-11-14 12:00] VITALS: BP 108/68
[2021-11-14] MEDS: ENOXAPARIN 40MG/0.4ML SYR SUBCUT SCH ×2 (14:00→15:30)
[2021-11-14 16:00] VITALS: BP 114/78
[2021-11-14 20:00] VITALS: BP 134/92
[2021-11-15] VITALS (7 sets, daily range): BP systolic 93–129; BP diastolic 53–77
[2021-11-15] MEDS: DIPHENHYDRAMINE 50MG CAPSULE PO PRN ×2 (00:51→14:08)
[2021-11-15] MEDS: ACETAMINOPHEN 325MG TABLET PO PRN ×2 (00:52→14:08)
[2021-11-15] MEDS: IPRATROPIUM/ALBUTEROL 0.5-3(2.5)MG/3ML NEB HHN SCH ×4 (02:12→20:16)
[2021-11-15] MEDS: SILDENAFIL CITRATE 20MG TABLET PO SCH ×3 (05:49→21:51)
[2021-11-15] MEDS: BLOOD SUGAR DIAGNOSTIC STRIP TEST SCH ×4 (08:01→21:09)
[2021-11-15] MEDS: INSULIN LISPRO 100 UNITS/ML SUBCUT SCH ×4 (08:01→21:00)
[2021-11-15] MEDS: LOSARTAN POTASSIUM 25 MG TABLET PO SCH (09:37)
[2021-11-15] MEDS: BUPROPION HCL 150MG TABLET XL 24HR PO SCH (09:37)
[2021-11-15] MEDS: QUETIAPINE FUMARATE 50MG TABLET PO SCH ×2 (09:37→21:03)
[2021-11-15] MEDS: FUROSEMIDE 40MG TABLET PO SCH (09:38)
[2021-11-15] MEDS: DILTIAZEM HCL 30MG TABLET PO SCH ×4 (09:38→21:03)
[2021-11-15] MEDS: HYDROCODONE/ACETAMINOPHEN 5/325MG TABLET PO PRN ×3 (09:38→20:47)
[2021-11-15] MEDS: MAGNESIUM/ALUMINUM HYDROXIDE/SIMETHICONE 30ML UDC PO PRN (09:47)
[2021-11-15] MEDS: ENOXAPARIN 40MG/0.4ML SYR SUBCUT SCH (14:00)
[2021-11-16] MEDS: IPRATROPIUM/ALBUTEROL 0.5-3(2.5)MG/3ML NEB HHN SCH ×4 (01:40→20:44)
[2021-11-16 04:00] VITALS: BP 117/67
[2021-11-16] MEDS: HYDROCODONE/ACETAMINOPHEN 5/325MG TABLET PO PRN ×5 (05:25→21:11)
[2021-11-16] MEDS: SILDENAFIL CITRATE 20MG TABLET PO SCH ×3 (07:00→21:11)
[2021-11-16] MEDS: INSULIN LISPRO 100 UNITS/ML SUBCUT SCH ×4 (07:13→21:00)
[2021-11-16] MEDS: BLOOD SUGAR DIAGNOSTIC STRIP TEST SCH ×4 (07:13→21:00)
[2021-11-16 08:00] VITALS: BP 99/72
[2021-11-16] MEDS: BUPROPION HCL 150MG TABLET XL 24HR PO SCH (08:36)
[2021-11-16] MEDS: QUETIAPINE FUMARATE 50MG TABLET PO SCH ×2 (08:36→21:11)
[2021-11-16] MEDS: DILTIAZEM HCL 30MG TABLET PO SCH ×4 (08:36→21:11)
[2021-11-16] MEDS: LOSARTAN POTASSIUM 25 MG TABLET PO SCH (08:37)
[2021-11-16] MEDS: FUROSEMIDE 40MG TABLET PO SCH (08:37)
[2021-11-16 12:00] VITALS: BP 99/57
[2021-11-16] MEDS: ENOXAPARIN 40MG/0.4ML SYR SUBCUT SCH (13:24)
[2021-11-16 16:00] VITALS: BP 124/78
[2021-11-16 20:00] VITALS: BP 121/73
[2021-11-16] MEDS: DIPHENHYDRAMINE 50MG CAPSULE PO PRN (21:11)
[2021-11-17] VITALS: BP_SYST 87; BP_SYST 99; BP_DIAS 54; BP_DIAS 66
[2021-11-17] MEDS: IPRATROPIUM/ALBUTEROL 0.5-3(2.5)MG/3ML NEB HHN SCH ×4 (01:19→21:29)
[2021-11-17 04:00] VITALS: BP 97/58
[2021-11-17] MEDS: SILDENAFIL CITRATE 20MG TABLET PO SCH ×3 (06:00→20:19)
[2021-11-17] MEDS: BLOOD SUGAR DIAGNOSTIC STRIP TEST SCH ×4 (06:42→20:22)
[2021-11-17] MEDS: DILTIAZEM HCL 30MG TABLET PO SCH ×4 (07:52→20:22)
[2021-11-17 08:00] VITALS: BP 107/69
[2021-11-17] MEDS: INSULIN LISPRO 100 UNITS/ML SUBCUT SCH ×4 (08:10→20:27)
[2021-11-17] MEDS: BUPROPION HCL 150MG TABLET XL 24HR PO SCH (08:18)
[2021-11-17] MEDS: QUETIAPINE FUMARATE 50MG TABLET PO SCH ×2 (08:18→20:19)
[2021-11-17] MEDS: FUROSEMIDE 40MG TABLET PO SCH (08:18)
[2021-11-17] MEDS: HYDROCODONE/ACETAMINOPHEN 5/325MG TABLET PO PRN ×3 (08:18→17:25)
[2021-11-17] MEDS: LOSARTAN POTASSIUM 25 MG TABLET PO SCH (08:19)
[2021-11-17 10:53] LABS: HEMATOCRIT 38.6 % (36.0-48.0); HEMOGLOBIN 12.2 g/dL (12.0-16.0); MEAN CORPUSCULAR HEMOGLOBIN 26.7 pg (28.0-32.0); MEAN CORPUSCULAR VOLUME 84.7 fL (81.0-99.0); PLATELET 232 x1000/uL (130-400); RED BLOOD CELL COUNT 4.55 mill/uL (4.2-5.4); RED CELL DISTRIBUTION WIDTH 19.2 % (11.6-14.6)
[2021-11-17 12:00] VITALS: BP 101/60
[2021-11-17] MEDS: ENOXAPARIN 40MG/0.4ML SYR SUBCUT SCH (13:22)
[2021-11-17 16:00] VITALS: BP 118/90
[2021-11-17] MEDS ORDERED: NALOXONE HCL 0.4MG/ML VIAL IV PRN (17:00)
[2021-11-17 20:00] VITALS: BP 116/61
[2021-11-17] MEDS: ACETAMINOPHEN 325MG TABLET PO PRN (20:19)
[2021-11-17] MEDS: DIPHENHYDRAMINE 50MG CAPSULE PO PRN (20:19)
[2021-11-17] MEDS: MAGNESIUM/ALUMINUM HYDROXIDE/SIMETHICONE 30ML UDC PO PRN (20:23)
[2021-11-18] VITALS: BP 100/67
[2021-11-18 04:00] VITALS: BP 113/66
[2021-11-18] MEDS: BLOOD SUGAR DIAGNOSTIC STRIP TEST SCH ×2 (05:59→12:20)
[2021-11-18] MEDS: INSULIN LISPRO 100 UNITS/ML SUBCUT SCH (05:59)
[2021-11-18] MEDS: SILDENAFIL CITRATE 20MG TABLET PO SCH (05:59)
[2021-11-18] MEDS: HYDROCODONE/ACETAMINOPHEN 5/325MG TABLET PO PRN (06:24)
[2021-11-18 07:06] LABS: BASOPHILS % 0.7 % (0.0-2.0); EOSINOPHILS % 2.8 % (0.0-5.0); HEMOGLOBIN. 11.9 g/dL (12.0-16.0); MEAN CORPUSCULAR VOLUME 84.4 fL (81.0-99.0); MEAN PLATELET VOLUME 8.8 fl (7.4-10.4); MONOCYTES % 10.3 % (2.0-8.0); NEUTROPHILS % 69.2 % (40.0-76.0); PLATELET 220 x1000/uL (130-400); RED BLOOD CELL COUNT 4.39 mill/uL (4.2-5.4); RED CELL DISTRIBUTION WIDTH 19.2 % (11.6-14.6)
[2021-11-18 08:00] VITALS: BP 130/76
[2021-11-18] MEDS: FUROSEMIDE 40MG TABLET PO SCH (09:12)
[2021-11-18] MEDS: DILTIAZEM HCL 30MG TABLET PO SCH (09:12)
[2021-11-18] MEDS: QUETIAPINE FUMARATE 50MG TABLET PO SCH (09:12)
[2021-11-18] MEDS: BUPROPION HCL 150MG TABLET XL 24HR PO SCH (09:12)
[2021-11-18] MEDS: LOSARTAN POTASSIUM 25 MG TABLET PO SCH (09:13)
[2021-11-18] MEDS: IPRATROPIUM/ALBUTEROL 0.5-3(2.5)MG/3ML NEB HHN SCH ×3 (09:15→13:00)
[2021-11-18 12:00] VITALS: BP 109/76
[2021-12-05] MEDS ORDERED: OXYC1TAB12 MT (10:18)
== END 2021-11-18 13:09 | disposition left against medical advice (07) | DRG 190 ==
LOC: ER 17:00 → MICUSO 20:06 → EDBEDREQ 20:24 → EDBEDREQSVC 20:24 → EDBEDREQTM 20:24 → 7WST 11-07 07:00 → 6EST 11-18 11:36
PROVIDERS: ADMIT Specialist; ATTEND Specialist
DX: I21.4 Non-ST elevation (NSTEMI) myocardial infarction (principal); J96.00 Acute respiratory failure, unspecified whether with hypoxia or hypercapnia; I50.23 Acute on chronic systolic (congestive) heart failure; E43 Unspecified severe protein-calorie malnutrition; J18.9 Pneumonia, unspecified organism; I27.20 Pulmonary hypertension, unspecified; I42.9 Cardiomyopathy, unspecified; I13.0 Hypertensive heart and chronic kidney disease with heart failure and stage 1 through stage 4 chronic kidney disease, or unspecified chronic kidney disease; J44.0 Chronic obstructive pulmonary disease with (acute) lower respiratory infection; J44.1 Chronic obstructive pulmonary disease with (acute) exacerbation; N39.0 Urinary tract infection, site not specified; E83.52 Hypercalcemia; N18.9 Chronic kidney disease, unspecified; Z20.822 Contact with and (suspected) exposure to COVID-19; Z53.29 Procedure and treatment not carried out because of patient's decision for other reasons; I25.10 Atherosclerotic heart disease of native coronary artery without angina pectoris; E78.5 Hyperlipidemia, unspecified; K21.9 Gastro-esophageal reflux disease without esophagitis; I34.0 Nonrheumatic mitral (valve) insufficiency; F32.A Depression, unspecified; F17.210 Nicotine dependence, cigarettes, uncomplicated; F14.10 Cocaine abuse, uncomplicated; F12.10 Cannabis abuse, uncomplicated; Z90.12 Acquired absence of left breast and nipple; Z79.899 Other long term (current) drug therapy; Z91.02 Food additives allergy status; Z82.49 Family history of ischemic heart disease and other diseases of the circulatory system; Z91.19 Patient's noncompliance with other medical treatment and regimen; Z68.22 Body mass index [BMI] 22.0-22.9, adult; Z85.3 Personal history of malignant neoplasm of breast; R65.10 Systemic inflammatory response syndrome (SIRS) of non-infectious origin without acute organ dysfunction
CPT/HCPCS: 36415; 71045; 71275; 74177; 80048; 80053; 80061; 80305; 80307; 80320; 80329; 81003; 82550; 82962; 83036; 83735; 83880; 84145; 84443; 84484; 85025; 85027; 87426; 93005; 94640; 94664; 97161; 97164; 97166; 97530; 97535; 99285; J0696; J1650; J1815; J1940; J2270; J7626; Q0163; U0003; U0005; G0480

== ENCOUNTER 2021-11-26 05:57 | Inpatient (IN) | payer MEDICAID ==
[~2021-11-26] VITALS: Ht 175.3 cm; Wt 64.2 kg
[2021-11-26] MEDS ORDERED: FUROSEMIDE 40MG/4ML VIAL IVP ONE (08:30)
[2021-11-26] MEDS ORDERED: IPRATROPIUM/ALBUTEROL 0.5-3(2.5)MG/3ML NEB HHN ONE (08:30)
[2021-11-26] MEDS ORDERED: MORPHINE SULFATE 4 MG/ML CPJ (NOT FOR IM USE) IV ONE (08:30)
[2021-11-26] MEDS ORDERED: METHYLPREDNISOLONE SOD SUCC 125 MG/2 ML VIAL IV ONE (08:30)
[2021-11-26 09:38] LABS: BASOPHILS % 0.6 % (0.0-2.0); EOSINOPHILS % 2.1 % (0.0-5.0); HEMOGLOBIN. 13.7 g/dL (12.0-16.0); LYMPHOCYTES % 19.4 % (20.0-50.0); MEAN CORPUSCULAR HEMOGLOBIN 27.8 pg (28.0-32.0); MEAN CORPUSCULAR VOLUME 85.2 fL (81.0-99.0); MEAN PLATELET VOLUME 8.4 fl (7.4-10.4); MONOCYTES % 7.2 % (2.0-8.0); NEUTROPHILS % 70.7 % (40.0-76.0); PLATELET 209 x1000/uL (130-400); RED BLOOD CELL COUNT 4.94 mill/uL (4.2-5.4); RED CELL DISTRIBUTION WIDTH 19.7 % (11.6-14.6)
[2021-11-26 09:42] LABS: CHLORIDE 107 mEq/L (98-107)
[2021-11-26 09:46] LABS: INR 1.2; PROTHROMBIN TIME 12.6 sec (9.6-11.0)
[2021-11-26] MEDS ORDERED: ASPIRIN 325MG EC TABLET PO ONE (10:45)
[2021-11-26] MEDS ORDERED: IPRATROPIUM/ALBUTEROL 0.5-3(2.5)MG/3ML NEB HHN PRN (14:45)
[2021-11-26] MEDS ORDERED: ONDANSETRON HCL 4MG/2ML INJ IV PRN (14:45)
[2021-11-26] MEDS ORDERED: NALOXONE HCL 0.4MG/ML VIAL IV PRN (15:00)
[2021-11-26] MEDS: FUROSEMIDE 40MG/4ML VIAL IVP SCH (15:00)
[2021-11-26] MEDS: HYDROCODONE/ACETAMINOPHEN 5/325MG TABLET PO PRN (15:00)
[2021-11-27] VITALS (7 sets, daily range): BP systolic 123–151; BP diastolic 72–91
[2021-11-27] MEDS: HYDROCODONE/ACETAMINOPHEN 5/325MG TABLET PO PRN ×2 (01:02→05:19)
[2021-11-27] MEDS: FUROSEMIDE 40MG/4ML VIAL IVP SCH (09:28)
[2021-11-27] MEDS: SILDENAFIL CITRATE 20MG TABLET PO SCH ×2 (13:28→21:36)
[2021-11-27] MEDS: DIPHENHYDRAMINE 25MG CAPSULE PO PRN ×2 (13:52→21:36)
[2021-11-27 15:39] LABS: *AMPHETAMINES SCREEN URINE NEGATIVE (NEGATIVE); *BARBITURATES SCREEN URINE NEGATIVE (NEGATIVE); *BENZODIAZEPINES SCREEN URINE NEGATIVE (NEGATIVE); *COCAINE SCREEN URINE PRESUMTIVE POSITIVE (NEGATIVE); CANNABINOID URINE SCREEN NEGATIVE (NEGATIVE); METHADONE URINE SCREEN NEGATIVE (NEGATIVE); OPIATES URINE SCREEN PRESUMTIVE POSITIVE (NEGATIVE); PHENCYCLIDINE URINE SCREEN NEGATIVE (NEGATIVE)
[2021-11-28] VITALS: BP 138/81
[2021-11-28 04:00] VITALS: BP 142/85
[2021-11-28] MEDS: SILDENAFIL CITRATE 20MG TABLET PO SCH ×3 (05:40→21:22)
[2021-11-28] MEDS: HYDROCODONE/ACETAMINOPHEN 5/325MG TABLET PO PRN ×4 (05:40→20:25)
[2021-11-28 08:53] VITALS: BP 129/70
[2021-11-28] MEDS: FUROSEMIDE 40MG/4ML VIAL IVP SCH (08:54)
[2021-11-28] MEDS: DIPHENHYDRAMINE 25MG CAPSULE PO PRN (08:54)
[2021-11-28 12:00] VITALS: BP 152/69
[2021-11-28 16:00] VITALS: BP 151/77
[2021-11-28 20:00] VITALS: BP 146/88
[2021-11-29] VITALS: BP 125/91
[2021-11-29 04:00] VITALS: BP 130/90
[2021-11-29] MEDS: SILDENAFIL CITRATE 20MG TABLET PO SCH ×3 (06:12→20:53)
[2021-11-29 08:00] VITALS: BP 142/82
[2021-11-29] MEDS: HYDROCODONE/ACETAMINOPHEN 5/325MG TABLET PO PRN (09:10)
[2021-11-29] MEDS: FUROSEMIDE 40MG/4ML VIAL IVP SCH (09:27)
[2021-11-29] MEDS: QUETIAPINE FUMARATE 50MG TABLET PO SCH ×2 (11:48→20:52)
[2021-11-29 12:00] VITALS: BP 121/76
[2021-11-29] MEDS: BUPROPION HCL 150MG SR TABLET PO SCH (14:28)
[2021-11-29 16:00] VITALS: BP 156/72
[2021-11-29 20:00] VITALS: BP 125/84
[2021-11-30] VITALS: BP 119/68
[2021-11-30 04:00] VITALS: BP 131/71
[2021-11-30] MEDS: HYDROCODONE/ACETAMINOPHEN 5/325MG TABLET PO PRN ×2 (05:58→16:51)
[2021-11-30] MEDS: SILDENAFIL CITRATE 20MG TABLET PO SCH ×3 (05:58→21:07)
[2021-11-30 08:00] VITALS: BP 128/68
[2021-11-30] MEDS: QUETIAPINE FUMARATE 50MG TABLET PO SCH ×2 (09:06→21:07)
[2021-11-30] MEDS: BUPROPION HCL 150MG SR TABLET PO SCH (09:06)
[2021-11-30] MEDS: FUROSEMIDE 40MG/4ML VIAL IVP SCH (09:06)
[2021-11-30 12:00] VITALS: BP 94/63
[2021-11-30 16:00] VITALS: BP 106/70
[2021-11-30 18:35] LABS: BASOPHILS % 0.8 % (0.0-2.0); EOSINOPHILS % 3.3 % (0.0-5.0); HEMOGLOBIN. 13.3 g/dL (12.0-16.0); LYMPHOCYTES % 21.3 % (20.0-50.0); MEAN CORPUSCULAR HEMOGLOBIN 27.1 pg (28.0-32.0); MEAN CORPUSCULAR VOLUME 83.9 fL (81.0-99.0); MEAN PLATELET VOLUME 8.6 fl (7.4-10.4); MONOCYTES % 13.6 % (2.0-8.0); PLATELET 171 x1000/uL (130-400); RED BLOOD CELL COUNT 4.89 mill/uL (4.2-5.4); RED CELL DISTRIBUTION WIDTH 18.9 % (11.6-14.6)
[2021-11-30 20:00] VITALS: BP 102/66
[2021-12-01] MEDS: HYDROCODONE/ACETAMINOPHEN 5/325MG TABLET PO PRN ×3 (00:36→20:09)
[2021-12-01 04:00] VITALS: BP 112/67
[2021-12-01] MEDS: SILDENAFIL CITRATE 20MG TABLET PO SCH ×3 (06:21→21:18)
[2021-12-01 08:00] VITALS: BP 104/70
[2021-12-01] MEDS: BUPROPION HCL 150MG SR TABLET PO SCH (08:24)
[2021-12-01] MEDS: FUROSEMIDE 40MG/4ML VIAL IVP SCH (08:24)
[2021-12-01] MEDS: QUETIAPINE FUMARATE 50MG TABLET PO SCH ×2 (08:24→20:09)
[2021-12-01 12:00] VITALS: BP 93/54
[2021-12-01] MEDS ORDERED: NALOXONE HCL 0.4MG/ML VIAL IV PRN (15:15)
[2021-12-01 16:00] VITALS: BP 115/78
[2021-12-01 20:00] VITALS: BP 110/70
[2021-12-02] VITALS: BP 116/75
[2021-12-02 04:00] VITALS: BP 109/61
[2021-12-02] MEDS: HYDROCODONE/ACETAMINOPHEN 5/325MG TABLET PO PRN ×3 (04:06→21:05)
[2021-12-02] MEDS: SILDENAFIL CITRATE 20MG TABLET PO SCH ×3 (06:01→21:04)
[2021-12-02 08:00] VITALS: BP 104/59
[2021-12-02] MEDS: QUETIAPINE FUMARATE 50MG TABLET PO SCH ×2 (09:26→21:05)
[2021-12-02] MEDS: FUROSEMIDE 40MG/4ML VIAL IVP SCH (09:26)
[2021-12-02] MEDS: BUPROPION HCL 150MG SR TABLET PO SCH (09:26)
[2021-12-02 12:00] VITALS: BP 106/66
[2021-12-02 16:00] VITALS: BP_SYST 104; BP_SYST 111; BP_DIAS 51; BP_DIAS 62
[2021-12-02 20:00] VITALS: BP 110/55
[2021-12-03] VITALS: BP 108/58
[2021-12-03 04:00] VITALS: BP 105/55
[2021-12-03] MEDS: HYDROCODONE/ACETAMINOPHEN 5/325MG TABLET PO PRN ×4 (04:59→21:06)
[2021-12-03 08:00] VITALS: BP 102/62
[2021-12-03] MEDS: BUPROPION HCL 150MG SR TABLET PO SCH (08:36)
[2021-12-03] MEDS: QUETIAPINE FUMARATE 50MG TABLET PO SCH ×2 (08:36→21:05)
[2021-12-03] MEDS: FUROSEMIDE 40MG/4ML VIAL IVP SCH (09:00)
[2021-12-03 11:55] VITALS: BP 99/56
[2021-12-03] MEDS: DIPHENHYDRAMINE 25MG CAPSULE PO PRN ×2 (12:46→18:54)
[2021-12-03] MEDS: SILDENAFIL CITRATE 20MG TABLET PO SCH ×2 (14:00→21:05)
[2021-12-03 16:00] VITALS: BP 127/82
[2021-12-03 20:00] VITALS: BP 136/81
[2021-12-04] VITALS: BP 118/58
[2021-12-04] MEDS: HYDROCODONE/ACETAMINOPHEN 5/325MG TABLET PO PRN ×2 (01:04→12:17)
[2021-12-04 04:00] VITALS: BP 106/68
[2021-12-04] MEDS: SILDENAFIL CITRATE 20MG TABLET PO SCH ×2 (05:27→14:00)
[2021-12-04] MEDS: DIPHENHYDRAMINE 25MG CAPSULE PO PRN (05:27)
[2021-12-04 08:00] VITALS: BP 112/67
[2021-12-04] MEDS: QUETIAPINE FUMARATE 50MG TABLET PO SCH (08:42)
[2021-12-04] MEDS: BUPROPION HCL 150MG SR TABLET PO SCH (08:42)
[2021-12-04] MEDS: FUROSEMIDE 40MG/4ML VIAL IVP SCH (08:42)
[2021-12-04 12:00] VITALS: BP 140/83
[2021-12-04] MEDS ORDERED: MORPHINE SULFATE 2 MG/ML CPJ (NOT FOR IM USE) IV NR (13:30)
[2021-12-04 14:39] VITALS: BP 140/83
[2021-12-04] MEDS ORDERED: FLUT1DIS3 INH (15:15)
[2021-12-04] MEDS ORDERED: OXYC1TAB12 MT (15:15)
[2021-12-04] MEDS ORDERED: ALBU18HF2 IH (15:15)
[2021-12-04] MEDS ORDERED: FURO-151 MT (15:15)
[2021-12-05] MEDS ORDERED: OXYC1TAB12 MT (10:18)
== END 2021-12-04 15:27 | disposition home or self-care (01) | DRG 194 ==
LOC: ER 05:57 → 7WST 11:29 → CANRESERV 13:02 → ENRESERV 13:02 → 7WST 21:23
PROVIDERS: ADMIT Internal Medicine; ATTEND Internal Medicine
DX: I11.0 Hypertensive heart disease with heart failure (principal); J96.00 Acute respiratory failure, unspecified whether with hypoxia or hypercapnia; I21.4 Non-ST elevation (NSTEMI) myocardial infarction; E44.0 Moderate protein-calorie malnutrition; I50.23 Acute on chronic systolic (congestive) heart failure; Z20.822 Contact with and (suspected) exposure to COVID-19; J44.9 Chronic obstructive pulmonary disease, unspecified; I27.20 Pulmonary hypertension, unspecified; I25.10 Atherosclerotic heart disease of native coronary artery without angina pectoris; I42.7 Cardiomyopathy due to drug and external agent; F32.A Depression, unspecified; F19.10 Other psychoactive substance abuse, uncomplicated; F14.90 Cocaine use, unspecified, uncomplicated; F17.210 Nicotine dependence, cigarettes, uncomplicated; Z88.8 Allergy status to other drugs, medicaments and biological substances; Z79.899 Other long term (current) drug therapy; Z85.3 Personal history of malignant neoplasm of breast; I25.2 Old myocardial infarction; Z86.73 Personal history of transient ischemic attack (TIA), and cerebral infarction without residual deficits; Z68.20 Body mass index [BMI] 20.0-20.9, adult; Z90.12 Acquired absence of left breast and nipple; Z59.00 Homelessness unspecified
CPT/HCPCS: 36415; 71045; 80048; 80053; 80305; 83880; 84484; 85025; 87426; 93005; 94640; 99291; J1940; J2270; J2930; Q0163

== ENCOUNTER 2021-12-06 10:12 | Emergency (ER) | payer MEDICAID ==
[~2021-12-06] VITALS: Ht 172.7 cm; Wt 64.0 kg
[~2021-12-06 10:12] MED LIST changes: +ALBU18HF2 IH; +FLUT1DIS3 INH; +OXYC1TAB12 MT
[2021-12-06 10:14] VITALS: BP 132/91
[2021-12-06] MEDS ORDERED: ACETAMINOPHEN 325MG TABLET PO ONE (11:45)
== END 2021-12-06 12:21 | disposition home or self-care (01) ==
LOC: ER 10:12
DX: G89.3 Neoplasm related pain (acute) (chronic) (principal); C50.919 Malignant neoplasm of unspecified site of unspecified female breast; C78.00 Secondary malignant neoplasm of unspecified lung; M79.18 Myalgia, other site; I10 Essential (primary) hypertension; Z98.890 Other specified postprocedural states; Z90.10 Acquired absence of unspecified breast and nipple; I25.2 Old myocardial infarction; Z86.73 Personal history of transient ischemic attack (TIA), and cerebral infarction without residual deficits; Z79.899 Other long term (current) drug therapy
CPT/HCPCS: 99282

== ENCOUNTER 2022-02-26 11:55 | Inpatient (IN) | payer MEDICAID ==
[~2022-02-26] VITALS: Ht 167.6 cm; Wt 67.3 kg
[2022-02-26] MEDS ORDERED: METHYLPREDNISOLONE SOD SUCC 125 MG/2 ML VIAL IV STA (12:20)
[2022-02-26] MEDS ORDERED: MAGNESIUM 2 G PREMIX 50 ML IV ONE (12:30)
[2022-02-26 12:38] LABS: BG BASE EXCESS -4.2 mmol/L (-2.0-2.0); BG CARBOXYHEMOGLOBIN 4.8 % (0.5-1.5); BG DEOXYHEMOGLOBIN 7.2 % (0.0-5.0); BG FRACTION INSPIRED OXYGEN 44; BG HCO3 ACT 22.7 mmol/L (22.0-26.0); BG METHEMOGLOBIN 0.4 % (0.0-1.5); BG OXYGEN SATURATION 92.4 % (92.0-98.5); BG OXYHEMOGLOBIN 87.6 % (94.0-97.0); BG PCO2 48.2 mmHg (35.0-45.0); BG PH 7.291 (7.350-7.450); BG PO2 69.8 mmHg (75.0-100.0); BG TOTAL HEMOGLOBIN 15.5 g/dL (12.0-18.0); BG VENT MODE NASAL CANNULA
[2022-02-26 12:47] LABS: BASOPHILS % 0.8 % (0.0-2.0); EOSINOPHILS % 0.8 % (0.0-5.0); HEMATOCRIT. 51.6 % (36.0-48.0); HEMOGLOBIN. 16.1 g/dL (12.0-16.0); LYMPHOCYTES % 15.8 % (20.0-50.0); MEAN CORPUSCULAR HEMOGLOBIN 28.2 pg (28.0-32.0); MEAN CORPUSCULAR VOLUME 90.7 fL (81.0-99.0); MEAN PLATELET VOLUME 8.8 fl (7.4-10.4); MONOCYTES % 6.8 % (2.0-8.0); NEUTROPHILS % 75.8 % (40.0-76.0); PLATELET 191 x1000/uL (130-400); RED BLOOD CELL COUNT 5.69 mill/uL (4.2-5.4); RED CELL DISTRIBUTION WIDTH 16.7 % (11.6-14.6)
[2022-02-26 13:25] LABS: CHLORIDE 109 mEq/L (98-107)
[2022-02-26 13:45] LABS: INR 1.3; PARTIAL THROMBOPLASTIN TIME 24.8 sec (23.4-31.0)
[2022-02-26] MEDS ORDERED: CEFTRIAXONE 1 G PREMIX 50 ML IV ONE (13:45)
[2022-02-26] MEDS ORDERED: AZITHROMYCIN 500MG/250ML 250 ML IV ONE (13:45)
[2022-02-26] MEDS ORDERED: FUROSEMIDE 40MG/4ML VIAL IVP ONE (13:45)
[2022-02-26] MEDS ORDERED: NITROGLYCERIN 50MG PREMIX 250 ML IV ONE (13:45)
[2022-02-26] MEDS ORDERED: MORPHINE SULFATE 4 MG/ML CPJ (NOT FOR IM USE) IV ONE (14:15)
[2022-02-26] MEDS ORDERED: ONDANSETRON HCL 4MG/2ML INJ IV PRN (15:15)
[2022-02-26] MEDS ORDERED: IPRATROPIUM/ALBUTEROL 0.5-3(2.5)MG/3ML NEB HHN PRN (15:15)
[2022-02-26] MEDS ORDERED: DOCUSATE SODIUM 100MG CAPSULE PO PRN (15:15)
[2022-02-26] MEDS ORDERED: ACETAMINOPHEN 325MG TABLET PO PRN (15:15)
[2022-02-26] MEDS: AMLODIPINE 10MG TABLET PO SCH (15:15)
[2022-02-26] MEDS ORDERED: MAGNESIUM/ALUMINUM HYDROXIDE/SIMETHICONE 30ML UDC PO PRN (15:15)
[2022-02-26] MEDS ORDERED: IPRATROPIUM BROMIDE (0.02%) 0.5MG/2.5ML NEB ONE (15:16)
[2022-02-26] MEDS ORDERED: ALBUTEROL (0.083%) 2.5MG/3ML NEB ONE (15:16)
[2022-02-26] MEDS: IPRATROPIUM BROMIDE (0.02%) 0.5MG/2.5ML NEB HHN STA (15:17)
[2022-02-26] MEDS: ALBUTEROL (0.083%) 2.5MG/3ML NEB HHN SCH (15:17)
[2022-02-26] MEDS: ENOXAPARIN 40MG/0.4ML SYR SUBCUT SCH (16:44)
[2022-02-26] MEDS: METHYLPREDNISOLONE SOD SUCC 40 MG/ML VIAL IV SCH ×2 (16:50→23:53)
[2022-02-26 20:00] VITALS: BP 167/108
[2022-02-26] MEDS: IPRATROPIUM/ALBUTEROL 0.5-3(2.5)MG/3ML NEB HHN SCH (20:02)
[2022-02-26 20:41] VITALS: BP 167/108
[2022-02-26] MEDS ORDERED: AMLODIPINE 10MG TABLET PO SCH (21:00)
[2022-02-26] MEDS: HYDRALAZINE 20MG/ML VIAL IV PRN (21:36)
[2022-02-26] MEDS: HYDROCODONE/ACETAMINOPHEN 5/325MG TABLET PO PRN (21:37)
[2022-02-26] MEDS: FAMOTIDINE 20MG TABLET PO SCH (21:37)
[2022-02-26 22:00] VITALS: BP 183/161
[2022-02-26 22:28] LABS: CLARITY URINE CLEAR (CLEAR); COLOR URINE YELLOW (YELLOW); KETONES URINE NEGATIVE (NEGATIVE); LEUKOCYTE ESTERASE URINE NEGATIVE (NEGATIVE); NITRITE URINE NEGATIVE (NEGATIVE); OCCULT BLOOD URINE TRACE (NEGATIVE); PROTEIN URINE 3+ (NEGATIVE); SPECIFIC GRAVITY URINE 1.012 (1.005-1.030); UROBILINOGEN URINE 0.2 E.U./dL (0.2-1.0)
[2022-02-26 22:40] LABS: *AMPHETAMINES SCREEN URINE NEGATIVE (NEGATIVE); *BARBITURATES SCREEN URINE NEGATIVE (NEGATIVE); *BENZODIAZEPINES SCREEN URINE NEGATIVE (NEGATIVE); *COCAINE SCREEN URINE PRESUMTIVE POSITIVE (NEGATIVE); CANNABINOID URINE SCREEN NEGATIVE (NEGATIVE); METHADONE URINE SCREEN NEGATIVE (NEGATIVE); OPIATES URINE SCREEN PRESUMTIVE POSITIVE (NEGATIVE); PHENCYCLIDINE URINE SCREEN NEGATIVE (NEGATIVE)
[2022-02-27] VITALS (11 sets, daily range): BP systolic 141–174; BP diastolic 81–117
[2022-02-27] MEDS: IPRATROPIUM/ALBUTEROL 0.5-3(2.5)MG/3ML NEB HHN SCH ×4 (01:33→20:43)
[2022-02-27] MEDS: HYDROCODONE/ACETAMINOPHEN 5/325MG TABLET PO PRN ×3 (04:30→21:16)
[2022-02-27 06:48] LABS: HEMATOCRIT. 47.8 % (36.0-48.0); HEMOGLOBIN. 14.9 g/dL (12.0-16.0); MEAN CORPUSCULAR HEMOGLOBIN 28.3 pg (28.0-32.0); MEAN CORPUSCULAR VOLUME 90.9 fL (81.0-99.0); MEAN PLATELET VOLUME 9.7 fl (7.4-10.4); PLATELET 174 x1000/uL (130-400); RED BLOOD CELL COUNT 5.26 mill/uL (4.2-5.4); RED CELL DISTRIBUTION WIDTH 16.7 % (11.6-14.6)
[2022-02-27 09:39] LABS: CHLORIDE 110 mEq/L (98-107)
[2022-02-27] MEDS: METHYLPREDNISOLONE SOD SUCC 40 MG/ML VIAL IV SCH ×2 (09:40→16:53)
[2022-02-27] MEDS: FUROSEMIDE 40MG/4ML VIAL IVP SCH (09:41)
[2022-02-27] MEDS: AMLODIPINE 10MG TABLET PO SCH (09:42)
[2022-02-27 09:50] LABS: HDL CHOLESTEROL 39 mg/dL (40-59); LDL CHOLESTEROL 78 mg/dL (5-100)
[2022-02-27 11:52] LABS: PLATELET ESTIMATE NORMAL
[2022-02-27] MEDS: ENOXAPARIN 40MG/0.4ML SYR SUBCUT SCH (16:54)
[2022-02-27] MEDS: DIPHENHYDRAMINE 50MG/ML VIAL IV PRN (17:12)
[2022-02-27] MEDS: NEOMYCIN-POLYMYXIN-HYDROCORTISONE 1% OTIC SUSP 10ML EACH EAR SCH (17:13)
[2022-02-27] MEDS: FAMOTIDINE 20MG TABLET PO SCH (20:09)
[2022-02-28] VITALS (8 sets, daily range): BP systolic 140–156; BP diastolic 78–114
[2022-02-28] MEDS: METHYLPREDNISOLONE SOD SUCC 40 MG/ML VIAL IV SCH ×3 (00:37→18:32)
[2022-02-28] MEDS: NEOMYCIN-POLYMYXIN-HYDROCORTISONE 1% OTIC SUSP 10ML EACH EAR SCH ×4 (00:37→18:32)
[2022-02-28] MEDS: IPRATROPIUM/ALBUTEROL 0.5-3(2.5)MG/3ML NEB HHN SCH ×4 (02:48→20:41)
[2022-02-28 06:57] LABS: HEMATOCRIT. 43.7 % (36.0-48.0); HEMOGLOBIN. 13.9 g/dL (12.0-16.0); MEAN CORPUSCULAR HEMOGLOBIN 28.3 pg (28.0-32.0); MEAN CORPUSCULAR VOLUME 88.7 fL (81.0-99.0); MEAN PLATELET VOLUME 9.4 fl (7.4-10.4); PLATELET 144 x1000/uL (130-400); RED BLOOD CELL COUNT 4.93 mill/uL (4.2-5.4); RED CELL DISTRIBUTION WIDTH 16.2 % (11.6-14.6)
[2022-02-28 07:58] LABS: CHLORIDE 107 mEq/L (98-107)
[2022-02-28] MEDS: HYDROCODONE/ACETAMINOPHEN 5/325MG TABLET PO PRN (08:08)
[2022-02-28] MEDS: FUROSEMIDE 40MG/4ML VIAL IVP SCH ×2 (08:08→18:32)
[2022-02-28] MEDS: AMLODIPINE 10MG TABLET PO SCH (08:09)
[2022-02-28 08:42] LABS: PLATELET ESTIMATE NORMAL
[2022-02-28] MEDS ORDERED: MORPHINE SULFATE 2 MG/ML CPJ (NOT FOR IM USE) IV NR (14:30)
[2022-02-28] MEDS ORDERED: NALOXONE HCL 0.4MG/ML VIAL IV PRN (16:00)
[2022-02-28] MEDS: ENOXAPARIN 40MG/0.4ML SYR SUBCUT SCH (18:32)
[2022-02-28] MEDS: FAMOTIDINE 20MG TABLET PO SCH (22:19)
[2022-02-28] MEDS: HYDRALAZINE 20MG/ML VIAL IV PRN (23:12)
[2022-03-01] MEDS: METHYLPREDNISOLONE SOD SUCC 40 MG/ML VIAL IV SCH ×3 (01:09→16:31)
[2022-03-01] MEDS: NEOMYCIN-POLYMYXIN-HYDROCORTISONE 1% OTIC SUSP 10ML EACH EAR SCH ×4 (01:10→17:07)
[2022-03-01] MEDS: IPRATROPIUM/ALBUTEROL 0.5-3(2.5)MG/3ML NEB HHN SCH ×4 (02:10→21:10)
[2022-03-01 04:00] VITALS: BP 164/116
[2022-03-01] MEDS: MORPHINE SULFATE 2 MG/ML CPJ (NOT FOR IM USE) IV PRN ×2 (05:13→20:01)
[2022-03-01 06:07] LABS: HEMATOCRIT. 42.6 % (36.0-48.0); HEMOGLOBIN. 13.7 g/dL (12.0-16.0); MEAN PLATELET VOLUME 8.6 fl (7.4-10.4); PLATELET 126 x1000/uL (130-400); RED CELL DISTRIBUTION WIDTH 16.1 % (11.6-14.6)
[2022-03-01 08:00] VITALS: BP 152/111
[2022-03-01 08:16] LABS: CHLORIDE 99 mEq/L (98-107)
[2022-03-01 08:25] LABS: PLATELET ESTIMATE SLIGHTLY DECREASED
[2022-03-01] MEDS: FUROSEMIDE 40MG/4ML VIAL IVP SCH ×2 (09:26→16:03)
[2022-03-01] MEDS: AMLODIPINE 10MG TABLET PO SCH (09:27)
[2022-03-01] MEDS: ACETAMINOPHEN 325MG TABLET PO PRN (09:27)
[2022-03-01] MEDS: HYDRALAZINE 20MG/ML VIAL IV PRN ×3 (09:41→14:14)
[2022-03-01 12:00] VITALS: BP 156/99
[2022-03-01] MEDS: CLONIDINE 0.1MG TABLET PO SCH (14:14)
[2022-03-01] MEDS: HYDRALAZINE HCL 50MG TABLET PO SCH (14:17)
[2022-03-01 16:00] VITALS: BP 150/111
[2022-03-01] MEDS: ENOXAPARIN 40MG/0.4ML SYR SUBCUT SCH (16:02)
[2022-03-01] MEDS: GUAIFENESIN 200MG/10ML SUGAR FREE UDC PO PRN (16:03)
[2022-03-01 20:00] VITALS: BP 166/111
[2022-03-01] MEDS: FAMOTIDINE 20MG TABLET PO SCH (20:01)
[2022-03-01] MEDS: CLONIDINE 0.1MG TABLET PO PRN (20:02)
[2022-03-02] VITALS: BP 156/84
[2022-03-02] MEDS: HYDRALAZINE HCL 50MG TABLET PO SCH ×4 (00:05→20:54)
[2022-03-02] MEDS: NEOMYCIN-POLYMYXIN-HYDROCORTISONE 1% OTIC SUSP 10ML EACH EAR SCH ×4 (00:06→17:25)
[2022-03-02] MEDS: IPRATROPIUM/ALBUTEROL 0.5-3(2.5)MG/3ML NEB HHN SCH ×4 (00:59→21:03)
[2022-03-02] MEDS: CLONIDINE 0.1MG TABLET PO SCH ×4 (01:06→20:54)
[2022-03-02 04:00] VITALS: BP 154/97
[2022-03-02] MEDS: HYDROCODONE/ACETAMINOPHEN 5/325MG TABLET PO PRN (06:45)
[2022-03-02 08:00] VITALS: BP 142/78
[2022-03-02 09:16] LABS: EOSINOPHILS % 0.2 % (0.0-5.0); HEMATOCRIT. 40.8 % (36.0-48.0); HEMOGLOBIN. 12.9 g/dL (12.0-16.0); LYMPHOCYTES % 9.4 % (20.0-50.0); MEAN CORPUSCULAR HEMOGLOBIN 27.6 pg (28.0-32.0); MEAN CORPUSCULAR VOLUME 87.2 fL (81.0-99.0); MEAN PLATELET VOLUME 8.5 fl (7.4-10.4); MONOCYTES % 11.4 % (2.0-8.0); PLATELET 113 x1000/uL (130-400); RED BLOOD CELL COUNT 4.67 mill/uL (4.2-5.4); RED CELL DISTRIBUTION WIDTH 15.7 % (11.6-14.6)
[2022-03-02 09:37] LABS: CHLORIDE 98 mEq/L (98-107)
[2022-03-02] MEDS: METHYLPREDNISOLONE SOD SUCC 40 MG/ML VIAL IV SCH ×2 (09:45→17:23)
[2022-03-02] MEDS: FUROSEMIDE 40MG/4ML VIAL IVP SCH ×2 (09:45→17:24)
[2022-03-02] MEDS: AMLODIPINE 10MG TABLET PO SCH (09:45)
[2022-03-02] MEDS: LORAZEPAM 2MG/ML CPJ IV PRN ×2 (11:51→21:29)
[2022-03-02 16:45] VITALS: BP 149/89
[2022-03-02] MEDS: ENOXAPARIN 40MG/0.4ML SYR SUBCUT SCH (17:22)
[2022-03-02 20:00] VITALS: BP 145/91
[2022-03-02] MEDS: FAMOTIDINE 20MG TABLET PO SCH (20:53)
[2022-03-03] VITALS: BP 145/94
[2022-03-03] MEDS: IPRATROPIUM/ALBUTEROL 0.5-3(2.5)MG/3ML NEB HHN SCH ×4 (01:06→21:02)
[2022-03-03 04:00] VITALS: BP 156/93
[2022-03-03] MEDS: HYDRALAZINE HCL 50MG TABLET PO SCH ×3 (05:25→21:44)
[2022-03-03] MEDS: CLONIDINE 0.1MG TABLET PO SCH ×3 (05:25→21:44)
[2022-03-03] MEDS: NEOMYCIN-POLYMYXIN-HYDROCORTISONE 1% OTIC SUSP 10ML EACH EAR SCH ×5 (05:28→23:30)
[2022-03-03 08:00] VITALS: BP 144/83
[2022-03-03] MEDS: AMLODIPINE 10MG TABLET PO SCH (09:00)
[2022-03-03] MEDS: METHYLPREDNISOLONE SOD SUCC 40 MG/ML VIAL IV SCH ×2 (09:00→17:24)
[2022-03-03] MEDS: FUROSEMIDE 40MG/4ML VIAL IVP SCH ×2 (09:00→17:24)
[2022-03-03] MEDS: ACETAMINOPHEN 325MG TABLET PO PRN (10:29)
[2022-03-03 12:00] VITALS: BP 154/89
[2022-03-03 16:00] VITALS: BP 152/87
[2022-03-03] MEDS: ENOXAPARIN 40MG/0.4ML SYR SUBCUT SCH (17:26)
[2022-03-03 20:00] VITALS: BP 148/87
[2022-03-03] MEDS: DIPHENHYDRAMINE 50MG/ML VIAL IV PRN (21:44)
[2022-03-03] MEDS: FAMOTIDINE 20MG TABLET PO SCH (21:44)
[2022-03-03] MEDS: LORAZEPAM 2MG/ML CPJ IV PRN (23:31)
[2022-03-03] MEDS: CLONIDINE 0.1MG TABLET PO PRN (23:42)
[2022-03-04] VITALS: BP 162/95
[2022-03-04] MEDS: IPRATROPIUM/ALBUTEROL 0.5-3(2.5)MG/3ML NEB HHN SCH ×4 (02:55→21:04)
[2022-03-04 04:00] VITALS: BP 148/93
[2022-03-04] MEDS: CLONIDINE 0.1MG TABLET PO SCH ×3 (05:13→20:13)
[2022-03-04] MEDS: HYDRALAZINE HCL 50MG TABLET PO SCH ×3 (05:13→20:14)
[2022-03-04] MEDS: NEOMYCIN-POLYMYXIN-HYDROCORTISONE 1% OTIC SUSP 10ML EACH EAR SCH ×5 (05:13→23:02)
[2022-03-04 08:00] VITALS: BP 137/83
[2022-03-04] MEDS: FUROSEMIDE 40MG/4ML VIAL IVP SCH ×2 (09:08→17:24)
[2022-03-04] MEDS: AMLODIPINE 10MG TABLET PO SCH (09:08)
[2022-03-04] MEDS: METHYLPREDNISOLONE SOD SUCC 40 MG/ML VIAL IV SCH (09:08)
[2022-03-04 12:26] VITALS: BP 140/94
[2022-03-04] MEDS: ACETAMINOPHEN 325MG TABLET PO PRN (14:39)
[2022-03-04] MEDS: DIPHENHYDRAMINE 50MG/ML VIAL IV PRN ×2 (15:48→20:14)
[2022-03-04 16:00] VITALS: BP 142/81
[2022-03-04 16:51] LABS: HEMATOCRIT 42.9 % (36.0-48.0); HEMOGLOBIN 13.7 g/dL (12.0-16.0); MEAN CORPUSCULAR HEMOGLOBIN 27.9 pg (28.0-32.0); MEAN CORPUSCULAR VOLUME 87.5 fL (81.0-99.0); PLATELET 151 x1000/uL (130-400); RED CELL DISTRIBUTION WIDTH 15.9 % (11.6-14.6)
[2022-03-04 16:55] LABS: CHLORIDE 89 mEq/L (98-107)
[2022-03-04] MEDS: MORPHINE SULFATE 2 MG/ML CPJ (NOT FOR IM USE) IV PRN (16:57)
[2022-03-04] MEDS: ENOXAPARIN 40MG/0.4ML SYR SUBCUT SCH (17:25)
[2022-03-04] MEDS ORDERED: INSULIN REGULAR (HUMULIN R) 300UNITS/3ML VIAL SUBCUT NR (17:45)
[2022-03-04 20:00] VITALS: BP 165/91
[2022-03-04] MEDS: FAMOTIDINE 20MG TABLET PO SCH (20:14)
[2022-03-04] MEDS: LORAZEPAM 2MG/ML CPJ IV PRN (22:52)
[2022-03-05] VITALS: BP_SYST 132; BP_SYST 135; BP_DIAS 56; BP_DIAS 82
[2022-03-05 04:00] VITALS: BP 131/91
[2022-03-05] MEDS: NEOMYCIN-POLYMYXIN-HYDROCORTISONE 1% OTIC SUSP 10ML EACH EAR SCH ×3 (05:39→17:21)
[2022-03-05] MEDS: HYDRALAZINE HCL 50MG TABLET PO SCH ×3 (05:39→22:01)
[2022-03-05] MEDS: CLONIDINE 0.1MG TABLET PO SCH ×3 (05:40→22:01)
[2022-03-05] MEDS: HYDROCODONE/ACETAMINOPHEN 5/325MG TABLET PO PRN ×3 (05:54→20:02)
[2022-03-05 08:00] VITALS: BP 125/54
[2022-03-05] MEDS: IPRATROPIUM/ALBUTEROL 0.5-3(2.5)MG/3ML NEB HHN SCH ×4 (08:05→21:23)
[2022-03-05] MEDS: FUROSEMIDE 40MG/4ML VIAL IVP SCH ×2 (09:17→17:32)
[2022-03-05] MEDS: PREDNISONE 20MG TABLET PO SCH (09:18)
[2022-03-05] MEDS: AMLODIPINE 10MG TABLET PO SCH (09:18)
[2022-03-05] MEDS ORDERED: DIGOXIN 500MCG/2ML AMP IV NR (11:45)
[2022-03-05 12:00] VITALS: BP 127/91
[2022-03-05] MEDS ORDERED: DIGOXIN 500MCG/2ML AMP IV PRN (14:00)
[2022-03-05] MEDS: DILTIAZEM HCL 60MG TABLET PO SCH ×2 (14:09→22:03)
[2022-03-05 16:00] VITALS: BP 133/83
[2022-03-05 16:04] LABS: HEMATOCRIT 46.3 % (36.0-48.0); HEMOGLOBIN 14.6 g/dL (12.0-16.0); PLATELET 185 x1000/uL (130-400); RED BLOOD CELL COUNT 5.21 mill/uL (4.2-5.4); RED CELL DISTRIBUTION WIDTH 16.5 % (11.6-14.6)
[2022-03-05 16:20] LABS: BG BASE EXCESS 6.1 mmol/L (-2.0-2.0); BG CARBOXYHEMOGLOBIN 1.1 % (0.5-1.5); BG DEOXYHEMOGLOBIN 19.1 % (0.0-5.0); BG METHEMOGLOBIN 0.3 % (0.0-1.5); BG OXYGEN SATURATION 80.6 % (92.0-98.5); BG OXYHEMOGLOBIN 79.5 % (94.0-97.0); BG PCO2 50.6 mmHg (35.0-45.0); BG PH 7.419 (7.350-7.450); BG PO2 46.2 mmHg (75.0-100.0); BG SAMPLE SITE RIGHT BRACHIAL; BG TOTAL HEMOGLOBIN 14.9 g/dL (12.0-18.0); BG VENT MODE ROOM AIR
[2022-03-05 16:33] LABS: CHLORIDE 88 mEq/L (98-107)
[2022-03-05] MEDS: ENOXAPARIN 40MG/0.4ML SYR SUBCUT SCH (17:22)
[2022-03-05] MEDS ORDERED: NALOXONE HCL 0.4MG/ML VIAL IV PRN (17:45)
[2022-03-05] MEDS ORDERED: DEXTROSE 50% WATER 50ML SYRINGE IV PRN (18:00)
[2022-03-05] MEDS ORDERED: INSULIN GLARGINE 100 UNITS/ML SUBCUT NR (18:30)
[2022-03-05] MEDS: INSULIN LISPRO 100 UNITS/ML SUBCUT SCH ×2 (19:04→21:00)
[2022-03-05 20:00] VITALS: BP 133/98
[2022-03-05] MEDS: FAMOTIDINE 20MG TABLET PO SCH (20:00)
[2022-03-05] MEDS: BLOOD SUGAR DIAGNOSTIC STRIP TEST SCH (21:00)
[2022-03-05] MEDS: DIPHENHYDRAMINE 50MG/ML VIAL IV PRN (22:00)
[2022-03-05] MEDS: INSULIN GLARGINE 100 UNITS/ML SUBCUT SCH (22:00)
[2022-03-06] VITALS: BP 132/56
[2022-03-06] MEDS: IPRATROPIUM/ALBUTEROL 0.5-3(2.5)MG/3ML NEB HHN SCH ×3 (01:17→20:35)
[2022-03-06] MEDS: HYDROCODONE/ACETAMINOPHEN 5/325MG TABLET PO PRN ×2 (02:19→20:14)
[2022-03-06 05:23] VITALS: BP 140/86
[2022-03-06] MEDS: HYDRALAZINE HCL 50MG TABLET PO SCH ×3 (05:42→22:19)
[2022-03-06] MEDS: CLONIDINE 0.1MG TABLET PO SCH ×3 (05:42→22:29)
[2022-03-06] MEDS: DILTIAZEM HCL 60MG TABLET PO SCH (05:42)
[2022-03-06] MEDS: NEOMYCIN-POLYMYXIN-HYDROCORTISONE 1% OTIC SUSP 10ML EACH EAR SCH ×3 (05:44→12:00)
[2022-03-06 06:37] LABS: HEMATOCRIT 43.8 % (36.0-48.0); MEAN CORPUSCULAR HEMOGLOBIN 27.5 pg (28.0-32.0); MEAN CORPUSCULAR VOLUME 86.2 fL (81.0-99.0); PLATELET 144 x1000/uL (130-400); RED BLOOD CELL COUNT 5.08 mill/uL (4.2-5.4); RED CELL DISTRIBUTION WIDTH 15.9 % (11.6-14.6)
[2022-03-06] MEDS: BLOOD SUGAR DIAGNOSTIC STRIP TEST SCH ×4 (07:05→20:30)
[2022-03-06] MEDS: INSULIN LISPRO 100 UNITS/ML SUBCUT SCH ×4 (07:50→20:59)
[2022-03-06 08:00] VITALS: BP 125/88
[2022-03-06] MEDS: FUROSEMIDE 40MG/4ML VIAL IVP SCH ×2 (09:16→17:00)
[2022-03-06] MEDS: GUAIFENESIN 200MG/10ML SUGAR FREE UDC PO PRN (09:16)
[2022-03-06] MEDS: PREDNISONE 20MG TABLET PO SCH (09:17)
[2022-03-06] MEDS: INSULIN GLARGINE 100 UNITS/ML SUBCUT SCH ×2 (09:30→22:21)
[2022-03-06 12:00] VITALS: BP 114/83
[2022-03-06] MEDS: DILTIAZEM HCL 90MG TABLET PO SCH ×2 (14:00→22:20)
[2022-03-06 16:00] VITALS: BP 127/80
[2022-03-06] MEDS: ENOXAPARIN 40MG/0.4ML SYR SUBCUT SCH (16:00)
[2022-03-06] MEDS ORDERED: DIGOXIN 125MCG TABLET PO SCH (18:00)
[2022-03-06 20:00] VITALS: BP 130/84
[2022-03-06] MEDS: FAMOTIDINE 20MG TABLET PO SCH (20:04)
[2022-03-06] MEDS: DIPHENHYDRAMINE 50MG/ML VIAL IV PRN (20:49)
[2022-03-07] VITALS: BP 134/71
[2022-03-07] MEDS: IPRATROPIUM/ALBUTEROL 0.5-3(2.5)MG/3ML NEB HHN SCH ×2 (00:37→08:39)
[2022-03-07 04:00] VITALS: BP 126/65
[2022-03-07] MEDS: HYDROCODONE/ACETAMINOPHEN 5/325MG TABLET PO PRN ×2 (04:28→13:51)
[2022-03-07] MEDS: DILTIAZEM HCL 90MG TABLET PO SCH (04:29)
[2022-03-07] MEDS: HYDRALAZINE HCL 50MG TABLET PO SCH ×2 (04:30→13:41)
[2022-03-07] MEDS: CLONIDINE 0.1MG TABLET PO SCH ×2 (04:36→13:42)
[2022-03-07] MEDS: BLOOD SUGAR DIAGNOSTIC STRIP TEST SCH ×2 (07:20→11:13)
[2022-03-07] MEDS: INSULIN LISPRO 100 UNITS/ML SUBCUT SCH ×2 (07:50→11:13)
[2022-03-07 08:29] LABS: HEMATOCRIT 45.3 % (36.0-48.0); HEMOGLOBIN 14.3 g/dL (12.0-16.0); MEAN CORPUSCULAR HEMOGLOBIN 27.3 pg (28.0-32.0); MEAN CORPUSCULAR VOLUME 86.3 fL (81.0-99.0); PLATELET 170 x1000/uL (130-400); RED BLOOD CELL COUNT 5.24 mill/uL (4.2-5.4); RED CELL DISTRIBUTION WIDTH 15.6 % (11.6-14.6)
[2022-03-07] MEDS ORDERED: PREDNISONE 20MG TABLET PO SCH (09:00)
[2022-03-07] MEDS: FUROSEMIDE 40MG/4ML VIAL IVP SCH (09:01)
[2022-03-07] MEDS: INSULIN GLARGINE 100 UNITS/ML SUBCUT SCH (09:03)
[2022-03-07] MEDS: DIPHENHYDRAMINE 50MG/ML VIAL IV PRN (09:13)
[2022-03-07] MEDS ORDERED: LANTUSUD SUBCUT (12:46)
[2022-03-07] MEDS ORDERED: DIGO-26 PO (12:46)
[2022-03-07] MEDS ORDERED: FURO40TA5 PO (12:46)
[2022-03-07] MEDS ORDERED: DILT60TA35 PO (12:46)
[2022-03-07] MEDS ORDERED: DILTIAZEM HCL 60MG TABLET PO SCH ×2 (14:00)
[2022-03-07] MEDS ORDERED: DIGOXIN 500MCG/2ML AMP IV PRN (15:15)
[2022-03-07 15:27] VITALS: BP 112/60
[2022-03-07] MEDS ORDERED: FUROSEMIDE 40MG TABLET PO SCH (18:00)
[2022-03-08] MEDS ORDERED: PREDNISONE 10MG TABLET PO SCH (09:00)
== END 2022-03-07 17:10 | disposition home or self-care (01) | DRG 816 ==
LOC: ER 11:55 → 5EST 20:10 → 6WST 03-02 18:07
PROVIDERS: ADMIT Hospitalist; ATTEND Hospitalist
PROC: 5A09357 Assistance with Respiratory Ventilation, Less than 24 Consecutive Hours, Continuous Positive Airway Pressure (ICD-10-PCS; principal; 2022-02-26)
DX: T40.5X1A Poisoning by cocaine, accidental (unintentional), initial encounter (principal); J96.01 Acute respiratory failure with hypoxia; N17.0 Acute kidney failure with tubular necrosis; I21.4 Non-ST elevation (NSTEMI) myocardial infarction; E43 Unspecified severe protein-calorie malnutrition; I47.1 Supraventricular tachycardia; J68.0 Bronchitis and pneumonitis due to chemicals, gases, fumes and vapors; I31.39 Other pericardial effusion (noninflammatory); C78.01 Secondary malignant neoplasm of right lung; I48.91 Unspecified atrial fibrillation; I48.92 Unspecified atrial flutter; I50.43 Acute on chronic combined systolic (congestive) and diastolic (congestive) heart failure; E87.29 Other acidosis; E11.649 Type 2 diabetes mellitus with hypoglycemia without coma; F17.210 Nicotine dependence, cigarettes, uncomplicated; E87.8 Other disorders of electrolyte and fluid balance, not elsewhere classified; G89.4 Chronic pain syndrome; I25.10 Atherosclerotic heart disease of native coronary artery without angina pectoris; I27.21 Secondary pulmonary arterial hypertension; I34.0 Nonrheumatic mitral (valve) insufficiency; I42.0 Dilated cardiomyopathy; I11.0 Hypertensive heart disease with heart failure; J44.1 Chronic obstructive pulmonary disease with (acute) exacerbation; R16.0 Hepatomegaly, not elsewhere classified; H92.03 Otalgia, bilateral; C50.912 Malignant neoplasm of unspecified site of left female breast; F41.9 Anxiety disorder, unspecified; I16.1 Hypertensive emergency; Z20.822 Contact with and (suspected) exposure to COVID-19; Z79.899 Other long term (current) drug therapy; Z79.4 Long term (current) use of insulin; Z82.49 Family history of ischemic heart disease and other diseases of the circulatory system; Z99.11 Dependence on respirator [ventilator] status; Z91.14 Patient's other noncompliance with medication regimen; Z68.23 Body mass index [BMI] 23.0-23.9, adult; Z91.018 Allergy to other foods; Z79.82 Long term (current) use of aspirin; Y92.89 Other specified places as the place of occurrence of the external cause; Z71.6 Tobacco abuse counseling; Z71.51 Drug abuse counseling and surveillance of drug abuser
CPT/HCPCS: 36415; 36600; 71045; 80048; 80053; 80061; 80305; 81003; 82375; 82805; 82962; 83036; 83605; 83735; 83880; 84145; 84436; 84443; 84484; 85025; 85027; 85379; 87426; 93005; 93306; 93970; 94640; 94660; 99291; C9803; J0360; J0456; J0696; J1160; J1200; J1650; J1815; J1940; J2060; J2270; J2920; J2930; J3475; J3490; J7512

== ENCOUNTER 2022-04-11 07:54 | Inpatient (IN) | payer MEDICAID ==
[~2022-04-11] VITALS: Ht 167.6 cm; Wt 75.7 kg
[~2022-04-11 07:54] MED LIST changes: -ALBU18HF2 IH; -AMLO5TAB4 PO; +DIGO-26 PO; +DILT60TA35 PO; -FLUT1AER INH; -FURO40TA5 MT; +FURO40TA5 PO; +LANTUSUD SUBCUT; -LOSA50TA3 MT; -OXYC1TAB12 MT; -P20 PO
[2022-04-11] MEDS ORDERED: DIPHENHYDRAMINE 50MG/ML VIAL IM ONE (11:45)
[2022-04-11] MEDS ORDERED: FAMOTIDINE 20MG TABLET PO ONE (11:45)
[2022-04-11] MEDS ORDERED: METHYLPREDNISOLONE SOD SUCC 125 MG/2 ML VIAL IM ONE (11:45)
[2022-04-11 12:15] LABS: CLARITY URINE CLEAR (CLEAR); COLOR URINE YELLOW (YELLOW); KETONES URINE NEGATIVE (NEGATIVE); LEUKOCYTE ESTERASE URINE TRACE (NEGATIVE); NITRITE URINE POSITIVE (NEGATIVE); OCCULT BLOOD URINE 1+ (NEGATIVE); PH URINE 5.5 (4.5-8.0); PROTEIN URINE 3+ (NEGATIVE); UROBILINOGEN URINE 0.2 E.U./dL (0.2-1.0)
[2022-04-11 13:23] LABS: *AMPHETAMINES SCREEN URINE NEGATIVE (NEGATIVE); *BARBITURATES SCREEN URINE NEGATIVE (NEGATIVE); *BENZODIAZEPINES SCREEN URINE NEGATIVE (NEGATIVE); *COCAINE SCREEN URINE PRESUMTIVE POSITIVE (NEGATIVE); CANNABINOID URINE SCREEN NEGATIVE (NEGATIVE); METHADONE URINE SCREEN NEGATIVE (NEGATIVE); OPIATES URINE SCREEN NEGATIVE (NEGATIVE); PHENCYCLIDINE URINE SCREEN NEGATIVE (NEGATIVE)
[2022-04-11 13:31] LABS: BASOPHILS % 0.7 % (0.0-2.0); EOSINOPHILS % 0.5 % (0.0-5.0); HEMATOCRIT. 42.5 % (36.0-48.0); HEMOGLOBIN. 13.1 g/dL (12.0-16.0); LYMPHOCYTES % 13.7 % (20.0-50.0); MEAN CORPUSCULAR HEMOGLOBIN 27.1 pg (28.0-32.0); MEAN CORPUSCULAR VOLUME 87.6 fL (81.0-99.0); MEAN PLATELET VOLUME 9.4 fl (7.4-10.4); MONOCYTES % 10.3 % (2.0-8.0); NEUTROPHILS % 74.8 % (40.0-76.0); PLATELET 250 x1000/uL (130-400); RED BLOOD CELL COUNT 4.86 mill/uL (4.2-5.4); RED CELL DISTRIBUTION WIDTH 18.4 % (11.6-14.6)
[2022-04-11 13:39] LABS: CHLORIDE 109 mEq/L (98-107)
[2022-04-11] MEDS ORDERED: CEFTRIAXONE 1 G PREMIX 50 ML IV NR (13:45)
[2022-04-11 13:50] LABS: ETHANOL BLOOD < 10 mg/dL
[2022-04-11] MEDS ORDERED: ASPIRIN 325MG EC TABLET PO ONE (17:15)
[2022-04-12] VITALS: BP 138/79
[2022-04-12] MEDS ORDERED: ONDANSETRON HCL 4MG/2ML INJ IV PRN (01:00)
[2022-04-12] MEDS ORDERED: CLONIDINE 0.1MG TABLET PO PRN (01:00)
[2022-04-12] MEDS ORDERED: GUAIFENESIN 200MG/10ML SUGAR FREE UDC PO PRN (01:00)
[2022-04-12] MEDS ORDERED: IPRATROPIUM/ALBUTEROL 0.5-3(2.5)MG/3ML NEB HHN PRN (01:00)
[2022-04-12] MEDS ORDERED: DEXTROSE 50% WATER 50ML SYRINGE IV PRN (01:00)
[2022-04-12] MEDS ORDERED: ACETAMINOPHEN 325MG TABLET PO PRN ×2 (01:00)
[2022-04-12] MEDS ORDERED: DILTIAZEM HCL 90MG TABLET PO SCH (06:00)
[2022-04-12] MEDS: SODIUM CHLORIDE 0.9% INJ 3ML FLUSH IVF SCH ×3 (06:40→21:32)
[2022-04-12] MEDS: FUROSEMIDE 40MG/4ML VIAL IVP SCH ×2 (06:41→17:45)
[2022-04-12 08:00] VITALS: BP 143/98
[2022-04-12] MEDS: BLOOD SUGAR DIAGNOSTIC STRIP TEST SCH ×4 (08:06→21:57)
[2022-04-12] MEDS: INSULIN LISPRO 100 UNITS/ML SUBCUT SCH ×4 (08:06→22:08)
[2022-04-12] MEDS: ENOXAPARIN 40MG/0.4ML SYR SUBCUT SCH (08:40)
[2022-04-12 12:00] VITALS: BP 124/76
[2022-04-12] MEDS: DILTIAZEM HCL 90MG TABLET PO SCH ×2 (12:42→17:35)
[2022-04-12 16:00] VITALS: BP 135/79
[2022-04-12 20:00] VITALS: BP 128/71
[2022-04-12] MEDS: DIPHENHYDRAMINE 50MG/ML VIAL IV PRN (21:32)
[2022-04-12 22:00] VITALS: BP 128/71
[2022-04-12] MEDS: ZOLPIDEM TARTRATE 5MG TABLET PO PRN (22:06)
[2022-04-13] VITALS: BP 145/101
[2022-04-13] MEDS: DILTIAZEM HCL 90MG TABLET PO SCH ×4 (00:26→17:11)
[2022-04-13 02:47] LABS: PHOSPHORUS 2.2 mg/dL (2.5-4.9)
[2022-04-13 04:00] VITALS: BP 146/89
[2022-04-13] MEDS: SODIUM CHLORIDE 0.9% INJ 3ML FLUSH IVF SCH ×3 (06:42→22:02)
[2022-04-13] MEDS: FUROSEMIDE 40MG/4ML VIAL IVP SCH ×2 (06:43→16:48)
[2022-04-13] MEDS: BLOOD SUGAR DIAGNOSTIC STRIP TEST SCH ×4 (07:40→21:00)
[2022-04-13 08:00] VITALS: BP 154/99
[2022-04-13] MEDS: INSULIN LISPRO 100 UNITS/ML SUBCUT SCH ×4 (08:10→22:03)
[2022-04-13] MEDS: ENOXAPARIN 40MG/0.4ML SYR SUBCUT SCH (08:53)
[2022-04-13] MEDS ORDERED: NALOXONE HCL 0.4MG/ML VIAL IV PRN (10:45)
[2022-04-13] MEDS: HYDROCODONE/ACETAMINOPHEN 10/325MG TABLET PO PRN ×2 (10:50→15:20)
[2022-04-13 12:00] VITALS: BP 161/104
[2022-04-13 15:58] VITALS: BP 151/90
[2022-04-13 16:38] LABS: BASOPHILS % 0.6 % (0.0-2.0); EOSINOPHILS % 0.4 % (0.0-5.0); HEMATOCRIT. 41.5 % (36.0-48.0); HEMOGLOBIN. 12.9 g/dL (12.0-16.0); LYMPHOCYTES % 16.5 % (20.0-50.0); MEAN CORPUSCULAR VOLUME 87.2 fL (81.0-99.0); MEAN PLATELET VOLUME 8.3 fl (7.4-10.4); MONOCYTES % 11.8 % (2.0-8.0); NEUTROPHILS % 70.7 % (40.0-76.0); PLATELET 225 x1000/uL (130-400); RED BLOOD CELL COUNT 4.76 mill/uL (4.2-5.4); RED CELL DISTRIBUTION WIDTH 18.6 % (11.6-14.6)
[2022-04-13] MEDS: DIPHENHYDRAMINE 50MG/ML VIAL IV PRN (18:48)
[2022-04-13 20:56] VITALS: BP 126/69
[2022-04-13] MEDS: ZOLPIDEM TARTRATE 5MG TABLET PO PRN (22:02)
[2022-04-14 00:28] VITALS: BP 129/69
[2022-04-14] MEDS: DILTIAZEM HCL 90MG TABLET PO SCH ×5 (00:30→23:59)
[2022-04-14 04:00] VITALS: BP 142/88
[2022-04-14] MEDS: HYDROCODONE/ACETAMINOPHEN 10/325MG TABLET PO PRN ×3 (04:13→21:41)
[2022-04-14] MEDS: FUROSEMIDE 40MG/4ML VIAL IVP SCH ×2 (06:48→17:12)
[2022-04-14] MEDS: SODIUM CHLORIDE 0.9% INJ 3ML FLUSH IVF SCH ×3 (06:48→21:40)
[2022-04-14] MEDS: BLOOD SUGAR DIAGNOSTIC STRIP TEST SCH ×4 (07:40→20:19)
[2022-04-14 08:01] VITALS: BP 116/72
[2022-04-14] MEDS: INSULIN LISPRO 100 UNITS/ML SUBCUT SCH ×4 (08:12→21:00)
[2022-04-14] MEDS: ENOXAPARIN 40MG/0.4ML SYR SUBCUT SCH (08:13)
[2022-04-14] MEDS: DIPHENHYDRAMINE 50MG/ML VIAL IV PRN ×3 (08:14→21:41)
[2022-04-14 12:02] VITALS: BP 134/81
[2022-04-14] MEDS ORDERED: LACTULOSE 20G/30ML UDC PO PRN (14:15)
[2022-04-14 16:01] VITALS: BP 119/75
[2022-04-14 20:00] VITALS: BP 106/62
[2022-04-14] MEDS: ZOLPIDEM TARTRATE 5MG TABLET PO PRN (23:53)
[2022-04-15] VITALS: BP 145/99
[2022-04-15 04:00] VITALS: BP 120/68
[2022-04-15] MEDS: DIPHENHYDRAMINE 50MG/ML VIAL IV PRN ×2 (05:47→11:18)
[2022-04-15] MEDS: HYDROCODONE/ACETAMINOPHEN 10/325MG TABLET PO PRN (05:47)
[2022-04-15] MEDS: SODIUM CHLORIDE 0.9% INJ 3ML FLUSH IVF SCH ×2 (06:48→14:00)
[2022-04-15] MEDS: FUROSEMIDE 40MG/4ML VIAL IVP SCH (06:48)
[2022-04-15] MEDS: DILTIAZEM HCL 90MG TABLET PO SCH (06:49)
[2022-04-15] MEDS: INSULIN LISPRO 100 UNITS/ML SUBCUT SCH ×2 (07:25→12:53)
[2022-04-15] MEDS: BLOOD SUGAR DIAGNOSTIC STRIP TEST SCH ×2 (07:25→12:49)
[2022-04-15 08:00] VITALS: BP 155/96
[2022-04-15] MEDS: ENOXAPARIN 40MG/0.4ML SYR SUBCUT SCH (08:02)
[2022-04-15 12:00] VITALS: BP 154/98
[2022-04-15] MEDS ORDERED: DILTIAZEM HCL 60MG TABLET PO SCH (12:00)
[2022-04-15 13:51] VITALS: BP 154/98
[2022-04-15] MEDS ORDERED: FUROSEMIDE 40MG/4ML VIAL IVP SCH (18:00)
== END 2022-04-15 13:30 | disposition home or self-care (01) | DRG 194 ==
LOC: ER 07:54 → MICUSO 18:55 → 7WST 23:25
PROVIDERS: ADMIT Internal Medicine; ATTEND Internal Medicine
DX: I11.0 Hypertensive heart disease with heart failure (principal); J18.9 Pneumonia, unspecified organism; E46 Unspecified protein-calorie malnutrition; I42.9 Cardiomyopathy, unspecified; E88.09 Other disorders of plasma-protein metabolism, not elsewhere classified; J44.0 Chronic obstructive pulmonary disease with (acute) lower respiratory infection; I50.23 Acute on chronic systolic (congestive) heart failure; E11.9 Type 2 diabetes mellitus without complications; N63.20 Unspecified lump in the left breast, unspecified quadrant; F31.9 Bipolar disorder, unspecified; F14.10 Cocaine abuse, uncomplicated; F17.200 Nicotine dependence, unspecified, uncomplicated; Z20.822 Contact with and (suspected) exposure to COVID-19; Z68.27 Body mass index [BMI] 27.0-27.9, adult; Z88.8 Allergy status to other drugs, medicaments and biological substances; Z79.4 Long term (current) use of insulin; Z79.899 Other long term (current) drug therapy; Z59.00 Homelessness unspecified; Z90.12 Acquired absence of left breast and nipple; Z91.14 Patient's other noncompliance with medication regimen; Z85.3 Personal history of malignant neoplasm of breast; Z86.73 Personal history of transient ischemic attack (TIA), and cerebral infarction without residual deficits; Z82.49 Family history of ischemic heart disease and other diseases of the circulatory system
CPT/HCPCS: 36415; 71045; 74176; 80048; 80053; 80305; 80320; 81003; 82962; 83036; 83605; 83615; 83735; 83880; 84100; 84484; 85025; 87426; 93005; 93306; 93970; 99285; C9803; J0696; J1200; J1650; J1815; J1940; J2930; G0480